=== PATIENT | female | born 1965 | race Caucasian/White ===

== ENCOUNTER 2018-02-13 08:12 | Day surgery (SDC) | payer OTHER ==
[2018-02-10 14:50] VITALS: BMI 32.3
[~2018-02-13 08:12] MED LIST: LACTATED RINGERS 1,000 ML IV SCH; LIDOCAINE 1% 20 ML VIAL (10MG/ML) FOR IV START INTRADERMA PRN
[2018-02-13 08:41] VITALS: RESP 16; TEMP 97.4
[2018-02-13] MEDS ORDERED: LIDOCAINE 1% 20 ML VIAL (10MG/ML) FOR IV START INTRADERMA ONE (08:41)
[2018-02-13] MEDS ORDERED: LIDOCAINE 1% INJ 10MG/ML (20 ML MDV) ONE (09:13)
[2018-02-13] MEDS ORDERED: PROPOFOL 10 MG/ML 20 ML VIAL IV ONE (09:13)
--- NOTE | 2018-02-13 09:36 | P.GSHP ---
History of Present Illness H&P Date: 02/13/18 Chief Complaint: Gerd, Dysphagia, screening colonoscopy This a 52-year-old female referred from Dr. Rafaela Ott. Patient rents today for colonoscopy and EGD. She's had issues with GERD and dysphagia. Patient's a known history of hiatal hernia and Herrera's esophagus. Patient PRESENTS for screening colonoscopy. Past Medical History Past Medical History: Cancer, Deep Vein Thrombosis (DVT), GERD/Reflux, Rheumatoid Arthritis (RA) Additional Past Medical History / Comment(s): hx colon cancer, BLOOD CLOT IN ABDOMEN AFTER BOWEL SURG, NEUROPATHY forrest legs and feet, History of Any Multi-Drug Resistant Organisms: None Reported Past Surgical History: Bowel Resection, Tonsillectomy, Tubal Ligation Additional Past Surgical History / Comment(s): surgery for heavy uterine bleeding(?mesh), Past Anesthesia/Blood Transfusion Reactions: Family History of Problems w/ Anesthesia, Motion Sickness Additional Past Anesthesia/Blood Transfusion Reaction / Comment(s): MOTHER HAS PONV Smoking Status: Never smoker - Past Family History Father Family Medical History: Cancer Medications and Allergies Home Medications Medication Instructions Recorded Confirmed Type Gabapentin [Neurontin] 800 mg PO TID 02/10/18 02/13/18 History Synthroid(Dose Unknown) 1 tab PO DAILY 02/10/18 02/13/18 History Allergies Allergy/AdvReac Type Severity Reaction Status Date / Time Penicillins Allergy Severe Swelling Verified 02/13/18 08:27 OF THROAT Surgical - Exam Vital Signs Temp Pulse Resp BP Pulse Ox 97.4 F L 68 16 108/72 99 02/13/18 08:39 02/13/18 08:39 02/13/18 08:39 02/13/18 08:39 02/13/18 08:39 - General well developed, no distress - Eyes PERRL - ENT normal pinna - Neck no masses - Respiratory normal expansion - Cardiovascular Rhythm: regular - Abdomen Abdomen: soft, non tender Assessment and Plan Assessment: GERD, Herrera's esophagitis, hiatal hernia. Perform screening colonoscopy. And EGD.
[2018-02-13 10:00] VITALS: BP 127/65; PULSE 68
--- NOTE | 2018-02-13 10:13 | P.OP ---
Date of Procedure: 02/13/18 Preoperative Diagnosis: GERD Dysphagia, history of colon cancer Postoperative Diagnosis: Antral gastritis Small hiatal hernia Esophagitis Normal colon status post right colectomy Procedure(s) Performed: EGD Colonoscopy Anesthesia: MAC Surgeon: Ed Pimentel Pathology: other (Antrum, esophagus) Condition: stable Disposition: PACU Description of Procedure: PROCEDURE: The patient was placed on the endoscopy table in the lateral position. Digital rectal examination was performed which revealed no abnormalities. The prostate was symmetrical without nodules. Flexible colonoscope was then placed in the patient's anus and passed throughout the entire colon. The ileocolonic anastomosis was visualized. The transverse, descending and sigmoid colon were normal. The rectum was normal as well. There were no masses, polyps or diverticula noted in the entire colon. Next the gastroscope placed oropharynx and passed into the esophagus and into the stomach. Scope was then placed through the pylorus. The first and second portion of the duodenum. Normal. Scope was then brought back the antrum this was minimal inflamed. A biopsies was performed. Scope was unretroflexed and remainder of the stomach appeared normal. There was a small hiatal hernia. The GE junction was at 38 cm. The distal esophagus appeared of inflamed. A biopsies performed. The proximal esophagus appeared normal. Scope was withdrawn for patient..
== END 2018-02-13 10:25 | disposition home or self-care (01) ==
LOC: ORWHC2ENDO 08:12
PROVIDERS: ATTEND Surgery
DX: Z12.11 Encounter for screening for malignant neoplasm of colon (principal); K29.50 Unspecified chronic gastritis without bleeding; K44.9 Diaphragmatic hernia without obstruction or gangrene; K21.0 Gastro-esophageal reflux disease with esophagitis; Z85.038 Personal history of other malignant neoplasm of large intestine; Z90.49 Acquired absence of other specified parts of digestive tract; M06.9 Rheumatoid arthritis, unspecified; E07.9 Disorder of thyroid, unspecified; G62.9 Polyneuropathy, unspecified; Z86.718 Personal history of other venous thrombosis and embolism; Z79.890 Hormone replacement therapy; Z79.899 Other long term (current) drug therapy; Z88.0 Allergy status to penicillin; Z98.51 Tubal ligation status
CPT/HCPCS: 81025; 88305; 43239; J2001; J2704; G0105; 45378

== ENCOUNTER → 2018-02-25 | Outpatient (CLI) | payer OTHER ==
--- NOTE | 2018-02-25 10:17 | FL ---
EXAMINATION TYPE: FL barium swallow DATE OF EXAM: 02/25/2018 CLINICAL HISTORY: GERD and dysphagia per order. Occasional episodes of food getting stuck in upper to mid esophagus per patient. TECHNIQUE: A double contrast esophagram is performed utilizing air and barium. A total of 32 second s of fluoroscopic time was utilized during procedure. 26 spot images were saved during procedure. COMPARISON: None FINDINGS: The esophagus shows normal motility and emptying into the stomach. No evidence of hiatal h ernia, intraluminal mass, or significant stricture noted. No significant gastroesophageal reflux was seen during real time performance of this study. IMPRESSION: No significant abnormality is seen to account for patient's symptoms.
== END | disposition home or self-care (01) ==
LOC: RADFLMAIN 09:24
PROVIDERS: ATTEND Surgery
DX: R13.10 Dysphagia, unspecified (principal); K21.9 Gastro-esophageal reflux disease without esophagitis
CPT/HCPCS: 74220

== ENCOUNTER → 2018-03-04 | Outpatient (CLI) | payer OTHER ==
--- NOTE | 2018-03-04 12:52 | FL ---
MODIFIED SWALLOW / DEGLUTITION STUDY DATE OF EXAM: 03/04/2018 CLINICAL HISTORY: 52-year-old female with Dysphagia. Sensation of food sticking in the throat. TECHNIQUE: Deglutition study is performed utilizing thin liquid barium, honey and nectar thick liqui d barium, barium thick applesauce, and barium coated cracker. Total images: None. Real-time fluoroscopy support was provided to speech pathology Fluoroscopy time: 1 minute 20 seconds. COMPARISON: None. FINDINGS: The oral and pharyngeal phases show satisfactory initiation and propagation with all modalities teste d. Normal mastication is seen with solid modalities tested. There is no evidence of penetration or aspiration with any modality tested. Mild residuals are noted at the level of the cervical esophagus where a prominent anterior disc osteophyte complexes noted at C6-C7. This impresses on to the outbound sales specialist ior esophageal wall causing mild restriction. The patient points to this level as the site of abnorma l sensation when prompted. There is some soft tissue fullness in the expected region of the lingual t onsils which can be correlated with direct visualization. The patient reports that the palatine tonsi ls more previously removed. IMPRESSION: 1. No evidence for penetration or aspiration. 2. Prominent anterior disc osteophyte complex at C6-C7 impressing on the posterior esophageal wall. T his causes mild restriction and mild residuals. When prompted, the patient points to this level as th e site of abnormal sensation. 3. Soft tissue fullness in the expected region of the lingual tonsils. Recommend direct visualization , possible tonsillar hypertrophy. The patient reports that her palatine tonsils were previously remov ed. 4. Please refer to speech therapist notes for further details if necessary.
== END ==
LOC: RADFLMAIN 11:20
PROVIDERS: ATTEND Surgery
DX: M79.9 Soft tissue disorder, unspecified (principal); R13.10 Dysphagia, unspecified
CPT/HCPCS: 74230

== ENCOUNTER → 2018-04-07 | Outpatient (CLI) | payer OTHER ==
[2018-04-07 12:03] LABS: Basophils % (A) 0 %; Eosinophils # (A) 0.1 k/uL (0-0.7); Eosinophils % (A) 1 %; HCT 38.1 % (34.0-46.0); HGB 12.9 gm/dL (11.4-16.0); Lymphocytes # (A) 1.2 k/uL (1.0-4.8); Lymphocytes % (A) 20 %; MCH 29.5 pg (25.0-35.0); MCHC 33.9 g/dL (31.0-37.0); Mean Platelet Volume 6.3; Monocytes # (A) 0.4 k/uL (0-1.0); Monocytes % (A) 6 %; Neutrophils # (A) 4.2 k/uL (1.3-7.7); Neutrophils % (A) 71 %; Platelet Count 265 k/uL (150-450); RBC 4.38 m/uL (3.80-5.40); RDW 12.5 % (11.5-15.5); WBC 5.8 k/uL (3.8-10.6)
[2018-04-07 12:15] LABS: Anion Gap 12 mmol/L; Blood Urea Nitrogen 9 mg/dL (7-17); Carbon Dioxide 24 mmol/L (22-30); Chloride 104 mmol/L (98-107); Glucose 93 mg/dL (74-99); Potassium 4.1 mmol/L (3.5-5.1); Sodium 140 mmol/L (137-145)
== END ==
LOC: LABPAT 11:09
PROVIDERS: ATTEND Obstetrics & Gynecology
DX: Z01.812 Encounter for preprocedural laboratory examination (principal); N81.4 Uterovaginal prolapse, unspecified
CPT/HCPCS: 36415; 80051; 82565; 82947; 84520; 85025; 87086

== ENCOUNTER → 2018-04-09 | Outpatient (CLI) | payer OTHER | END | disposition home or self-care (01) | LOC: LABWHC1 09:00 | PROVIDERS: ATTEND Obstetrics & Gynecology | DX: Z01.818 Encounter for other preprocedural examination (principal) | CPT/HCPCS: 86850; 86860; 86870; 86880; 86885; 86900; 86901; 86902 ==

== ENCOUNTER 2018-04-15 05:46 | Day surgery (SDC) | payer OTHER ==
[2018-04-04 14:42] VITALS: BMI 32.3
[~2018-04-15 05:46] MED LIST changes: +CLINDAMYCIN 900 MG in DEXTROSE 5% IN WATER 50 ML IVPB ONE; +GENTAMICIN 360 MG in SODIUM CHLORIDE 0.9% 100 ML IVPB ONE; +HYDROmorphone 0.5 MG/0.5 ML SYRINGE IVP PRN; -LACTATED RINGERS 1,000 ML IV SCH; -LIDOCAINE 1% 20 ML VIAL (10MG/ML) FOR IV START INTRADERMA PRN; +ONDANSETRON 4 MG/2 ML VIAL IVP PRN; +fentaNYL (PF) 50 MCG/ML 2 ML AMP IV PRN
[2018-04-15] MEDS ORDERED: LIDOCAINE 1% 20 ML VIAL (10MG/ML) FOR IV START INTRADERMA ONE (06:41)
[2018-04-15] MEDS: LACTATED RINGERS 1,000 ML IV SCH ×2 (06:41→14:28)
[2018-04-15] MEDS ORDERED: ONDANSETRON 4 MG/2 ML VIAL IVP ONE (07:01)
[2018-04-15] MEDS ORDERED: DEXAMETHASONE SOD PHOSPHATE 10 MG/ML 1 ML VIAL IV ONE (07:02)
[2018-04-15] MEDS ORDERED: SCOPOLAMINE 1.5MG/72HR PATCH TRANSDERM ONE (07:02)
[2018-04-15] MEDS ORDERED: MIDAZOLAM 2 MG/2 ML VIAL IVP ONE (07:14)
[2018-04-15] MEDS ORDERED: fentaNYL (PF) 50 MCG/ML 2 ML AMP IVP ONE (07:19)
[2018-04-15] MEDS ORDERED: LIDOCAINE 1% INJ 10MG/ML (20 ML MDV) ONE (07:35)
[2018-04-15] MEDS ORDERED: SUCCINYLCHOLINE CHLORIDE 100 MG/5 ML SYR IV ONE (07:35)
[2018-04-15] MEDS ORDERED: MIDAZOLAM 2 MG/2 ML VIAL ONE (07:35)
[2018-04-15] MEDS ORDERED: fentaNYL (PF) 50 MCG/ML 2 ML AMP ONE (07:35)
[2018-04-15] MEDS ORDERED: PROPOFOL 10 MG/ML 20 ML VIAL IV ONE (07:35)
[2018-04-15] MEDS ORDERED: MORPHINE SULFATE (PF) 0.3 MG/0.3 ML SYR ONE (07:35)
[2018-04-15] MEDS ORDERED: ZOLPIDEM 5 MG TAB PO PRN (07:39)
[2018-04-15] MEDS ORDERED: SIMETHICONE 80 MG CHEWABLE PO PRN (07:39)
[2018-04-15] MEDS ORDERED: METOCLOPRAMIDE 5 MG/ML 2 ML VIAL IVP PRN (07:39)
[2018-04-15] MEDS ORDERED: Acetaminophen-Codeine 300-30mg TAB PO PRN ×2 (07:39)
[2018-04-15] MEDS ORDERED: diphenhydrAMINE 50 MG/ML 1 ML VIAL IVP PRN (07:39)
[2018-04-15] MEDS ORDERED: KETOROLAC 30 MG/ML 1 ML VIAL IVP PRN (07:39)
[2018-04-15] MEDS ORDERED: IBUPROFEN 600 MG TAB PO PRN (07:39)
--- NOTE | 2018-04-15 07:39 | P.HPOB ---
History of Present Illness H&P Date: 04/15/18 Chief Complaint: Symptomatic uterine prolapse The patient is a 52-year-old 3 para 3003 who presented the office with a complaint of increasing pelvic pressure present for close to a year. She recently looked at home and noticed something protruding from vagina. She has had an endometrial ablation in the past as well as a diagnosis of colon cancer which was resected and immediately reanastomosed with subsequent chemotherapy. She still does have some very light and irregular periods following her ablation 7 years ago but has no other significant symptoms of perimenopause aside from her cycle irregularity. She does also report some dyspareunia but has not required any splinting in order to either urinate or move her bowels. Obstetrical history: 3 para 3003 with 3 term vaginal deliveries without complications. Gynecologic history: Unremarkable with no history of any infections to include STDs Review of Systems Review of systems is confined to history of present illness. Past Medical History Past Medical History: Cancer, Deep Vein Thrombosis (DVT), GERD/Reflux, Rheumatoid Arthritis (RA) Additional Past Medical History / Comment(s): hx colon cancer, BLOOD CLOT IN ABDOMEN AFTER BOWEL SURG, NEUROPATHY forrest legs and feet, History of Any Multi-Drug Resistant Organisms: None Reported Past Surgical History: Bowel Resection, Tonsillectomy, Tubal Ligation Additional Past Surgical History / Comment(s): surgery for heavy uterine bleeding(?mesh), Past Anesthesia/Blood Transfusion Reactions: Family History of Problems w/ Anesthesia, Motion Sickness Additional Past Anesthesia/Blood Transfusion Reaction / Comment(s): MOTHER HAS PONV Smoking Status: Never smoker - Past Family History Father Family Medical History: Cancer Medications and Allergies Home Medications Medication Instructions Recorded Confirmed Type Gabapentin [Neurontin] 800 mg PO TID 02/10/18 04/15/18 History Levothyroxine Sodium [Synthroid] 137 mcg PO DAILY 02/10/18 04/15/18 History Ropinirole(Unknown Dose) 0.5 mg PO HS 04/11/18 04/15/18 History Allergies Allergy/AdvReac Type Severity Reaction Status Date / Time Penicillins Allergy Severe Swelling Verified 04/04/18 14:38 OF THROAT Exam - Vital Signs Vital signs: Vital Signs Temp Pulse Resp BP Pulse Ox 04/15/18 06:37 97.1 F L 63 16 113/61 99 Intake and Output 04/14/18 04/15/18 04/15/18 22:59 06:59 14:59 Intake Total 500 Balance 500 Intake: IV 500 In general, this is a well-developed, well-nourished white female in no acute distress. HEENT demonstrates PERRLA, EOMI, her oropharynx is clear. Her neck is supple without adenopathy in the third is normal palpation. Her heart has a regular rhythm and rate without murmur. Her lungs are clear to auscultation bilaterally in all grover. Back is without spinal or CVA tenderness. Her extremities are without any cyanosis, clubbing, or edema and are nontender to palpation bilaterally. Her abdomen is nondistended, has normal active bowel sounds, soft, nontender, and without any palpable masses, hepatomegaly, or hernias. Pelvic examination demonstrates normal external genitalia and BUS with normal vaginal mucosa and cervix. The cervix is apparent at the introitus representing grade 3-3+ prolapse. Uterus is approximate 5 weeks in size, midplane, mobile, nontender, normal in shape. The adnexa are normal and nontender without mass bilaterally. Assessment and Plan (1) Uterine prolapse Current Visit: Yes Status: Acute Code(s): N81.4 - UTEROVAGINAL PROLAPSE, UNSPECIFIED SNOMED Code(s): 49712515 Plan: The patient is brought to the operating room for vaginal hysterectomy. We have additionally consented her for possible anterior and possible posterior repair should these be found under anesthesia though they were not in evidence in the office. The risks and complications of the procedures have been thoroughly discussed including the risk for bleeding, bleeding, transfusion, infection, and injury to local structures to specifically include the bowel, bladder, and ureters. I did pay some particular concern to the risks of the bowel given her history of previous colonic resection and potential adhesive disease. She has understood all of these concerns and has agreed to proceed. The typical hospital and postoperative courses were also discussed at length.
[2018-04-15] MEDS ORDERED: LACTATED RINGERS 1,000 ML IV SCH (07:45)
[2018-04-15] MEDS ORDERED: VASOPRESSIN 20 UNIT/ML 1 ML VIAL SQ ONE (07:55)
[2018-04-15] MEDS ORDERED: ONDANSETRON 4 MG/2 ML VIAL IVP PRN (07:56)
[2018-04-15] MEDS ORDERED: NALOXONE 0.4 MG/ML 1 ML VIAL IV PRN (07:56)
[2018-04-15] MEDS ORDERED: MORPHINE SULFATE 2 MG/ML SYRINGE IVP PRN (07:56)
[2018-04-15] MEDS ORDERED: BACITRACIN 500 UNIT/GM OINT 28.4 GM TUBE TOPICAL ONE (08:09)
[2018-04-15] MEDS ORDERED: LACTATED RINGERS 1,000 ML IV ONE ×2 (08:29)
--- NOTE | 2018-04-15 08:54 | P.OP ---
Date of Procedure: 04/15/18 Preoperative Diagnosis: #1. Symptomatic uterine prolapse Postoperative Diagnosis: same Procedure(s) Performed: #1. Vaginal hysterectomy Anesthesia: CHERRY Surgeon: Alan Langley Bathroom Tiling Professional #1: Fabiana Sanchez Estimated Blood Loss (ml): 200 IV fluids (ml): 700 Urine output (ml): 200 Pathology: other (Uterus) Condition: stable Disposition: PACU Operative Findings: Preoperative pelvic examination demonstrated the cervix to be at the introitus as previously noted. Intraoperatively, the uterus was quite high and there was an unrecognized fundal fibroid on the patient's right side. The ovaries were neither seen or felt as they were suspended very high in the pelvis. Description of Procedure: The patient was prepped and draped in usual fashion after general endotracheal anesthesia was administered by the anesthesiologist. A weighted speculum was placed and the bladder drained of approximately 200 mL of clear nadine urine. The cervix was grasped with a double-tooth tenaculum and the cervicovaginal mucosa infused circumferentially with diluted vasopressin solution. The mucosa was then incised circumferentially and reflected distally. The posterior peritoneum was identified and incised sharply with the Sosa scissors allowing placement of a 2-0 Vicryl stitch for later use. The short weighted speculum was replaced with the long weighted speculum and further reflection of the mucosa carried out circumferentially. Once uterosacrals were adequately exposed , each was clamped with a curved Jolie [place] clamp, cut, and suture- ligated with a transfixion stitch of 0 Vicryl. Serial bites were taken up the cardinal ligament bilaterally with curved [place] clamps, each being cut and suture-ligated with a transfixion stitch of 0 Vicryl. After approximately 3-4 bites on each side, the posterior fundus was grasped with a single-tooth tenaculum and walked out in an anteverted position. This allowed us to identify the anterior peritoneum and incised sharply with the Bovie. This isolated the utero-ovarian ligaments on each side. The right utero- ovarian ligament was tethered quite high but was ultimately taken in 2 pieces. Each utero-ovarian pedicle was suture-ligated with a transfixion stitch of 0 Vicryl followed by a free tie of 0 Vicryl. Careful examination of each pedicle was carried out and demonstrated excellent hemostasis prior to releasing it into the abdomen. The ovaries were suspended very high and neither seen nor felt even with a digital exam. The long weighted speculum was replaced with the short weighted speculum and the previously placed stitch of 2-0 Vicryl utilized to close the parietal peritoneum in a pursestring stitch. The only points of any significant bleeding were along the vaginal cuff and would be incorporated in closure of the vaginal cuff. The uterosacral ligaments on each side were passed through the contralateral side with 0 Vicryl and then through the vaginal cuff on each side in a modified Garcia's culdoplasty. The intervening open vaginal mucosa was closed with interrupted [id number] stitches. Any exposed portion of the mucosal edge was cauterized with the Bovie in order to decrease granulation tissue. The bladder was then catheterized for a small amount of clear nadine urine. The vagina was packed with one-inch iodophor gauze covered with bacitracin ointment. Estimated blood loss for the entire case was approximately 200 mL. There were no complications. All sponge, instrument, and needle counts were correct. The patient tolerated the procedure well and proceeded to the recovery room in stable condition.
[2018-04-15] MEDS: SENNOSIDES-DOCUSATE SODIUM 1 EACH TAB PO SCH (10:36)
[2018-04-15] MEDS: diphenhydrAMINE 50 MG/ML 1 ML VIAL IVP PRN ×2 (13:06→19:28)
[2018-04-15] MEDS: GABAPENTIN 400 MG CAP PO SCH (19:27)
[2018-04-15] MEDS ORDERED: LEVOTHYROXINE 137 MCG TAB PO SCH (20:00)
[2018-04-16] MEDS: LACTATED RINGERS 1,000 ML IV SCH (00:17)
[2018-04-16] MEDS: diphenhydrAMINE 50 MG/ML 1 ML VIAL IVP PRN (01:26)
[2018-04-16] MEDS ORDERED: NALBUPHINE 10 MG/ML AMPUL IV PRN (06:18)
--- NOTE | 2018-04-16 06:18 | P.PN ---
Progress Note - Text Progress Note Date: 04/16/18 52-year-old female postop day #1, status post vaginal hysterectomy with Duramorph spinal. Patient is doing well, VAS 2/10, patient is ambulating, tolerating diet, has no complaints of nausea or vomiting. Patient does have significant pruritus that is not being treated by Benadryl. We'll add in order for Nubain 2.5 mg IV. Patient is doing well otherwise
[2018-04-16 06:26] LABS: Basophils % (A) 0 %; Eosinophils % (A) 0 %; HGB 10.4 gm/dL (11.4-16.0); Lymphocytes # (A) 1.1 k/uL (1.0-4.8); Lymphocytes % (A) 10 %; MCH 29.8 pg (25.0-35.0); MCHC 33.5 g/dL (31.0-37.0); MCV 88.8 fL (80.0-100.0); Mean Platelet Volume 6.2; Monocytes # (A) 0.7 k/uL (0-1.0); Monocytes % (A) 7 %; Neutrophils # (A) 8.4 k/uL (1.3-7.7); Neutrophils % (A) 82 %; Platelet Count 200 k/uL (150-450); RBC 3.49 m/uL (3.80-5.40); RDW 12.7 % (11.5-15.5); WBC 10.3 k/uL (3.8-10.6)
[2018-04-16] MEDS: SENNOSIDES-DOCUSATE SODIUM 1 EACH TAB PO SCH ×2 (06:30→12:57)
--- NOTE | 2018-04-16 08:45 | P.DS ---
Providers Expected date of discharge: 04/16/18 Attending physician: Alan Langley Primary care physician: Rafaela Ott - Discharge Diagnosis(es) (1) Uterine prolapse Current Visit: Yes Status: Acute Hospital Course: The patient is a 52-year-old 3 para 3003% the office with complaints of increasing pelvic pressure having noted the cervix at the opening in the vagina. Examination confirmed this finding. She also reported some dyspareunia and was requesting definitive therapy. Her history was somewhat complicated by a history of colon cancer with resection and immediately anastomosis done in the past. She was taken the operating room where she underwent vaginal hysterectomy in an uncomplicated fashion. Her post operative course was entirely unremarkable with vital signs remained stable and her temperature was afebrile throughout. She was tolerating regular diet by the morning of postoperative day #1 and performing all activities of daily living. She is therefore deemed stable for discharge for the afternoon of postoperative day #1 to follow-up in the office in 2 weeks' time for recheck in 6 weeks' time routinely. Discharge instructions included calling for any significantly increased bleeding, fever, abdominal pain, GI complaints, urinary complaints, or anything else that concerned her. She is additionally instructed to have nothing in the vagina to include intercourse for at least 6 weeks time. She understood her instructions and agrees to follow up as noted above. Discharge medications included her normal home medications as well as a prescription for Tylenol 3, 1-2 by mouth every 6 hours when necessary pain, #20 dispensed with no refills. Discharge hemoglobin and hematocrit were 10.4 and 31.0 respectively. Procedures: #1. Vaginal hysterectomy Patient Condition at Discharge: Good Plan - Discharge Summary Discharge Rx Participant: Yes New Discharge Prescriptions: No Action Levothyroxine Sodium [Synthroid] 137 mcg PO DAILY Gabapentin [Neurontin] 800 mg PO TID Ropinirole(Unknown Dose) 0.5 mg PO HS Discharge Medication List Gabapentin [Neurontin] 800 mg PO TID 02/10/18 [History] Levothyroxine Sodium [Synthroid] 137 mcg PO DAILY 02/10/18 [History] Ropinirole(Unknown Dose) 0.5 mg PO HS 04/11/18 [History] Follow up Appointment(s)/Referral(s): Alan Langley MD [STAFF PHYSICIAN] - 2 Weeks Discharge Disposition: HOME SELF-CARE
[2018-04-16 09:06] VITALS: BP 120/62; PULSE 79; RESP 18; TEMP 98.2
[2018-04-16] MEDS: GABAPENTIN 400 MG CAP PO SCH (12:56)
== END 2018-04-16 13:29 | disposition home or self-care (01) ==
LOC: OR 05:46 → 4FBP 08:48 → OR 04-16 13:29
PROVIDERS: ATTEND Obstetrics & Gynecology
DX: D25.9 Leiomyoma of uterus, unspecified (principal); N81.4 Uterovaginal prolapse, unspecified; N72 Inflammatory disease of cervix uteri; N80.0 Endometriosis of uterus; K21.9 Gastro-esophageal reflux disease without esophagitis; M06.9 Rheumatoid arthritis, unspecified; Z85.038 Personal history of other malignant neoplasm of large intestine; Z98.51 Tubal ligation status; Z88.0 Allergy status to penicillin; Z90.49 Acquired absence of other specified parts of digestive tract; Z79.899 Other long term (current) drug therapy; Z86.718 Personal history of other venous thrombosis and embolism
CPT/HCPCS: 81025; 85025; 88307; 58260; J2250; J1200 ×2; J1100; J2300; J2405; J2001; J2274; J3010; J1885; J1580; J2270; J0330; J2704; 36415; 86850; 86870; 86880; 86900; 86901; 86902; 88305

== ENCOUNTER → 2018-05-01 | Outpatient (CLI) | payer OTHER ==
[2018-05-01 17:25] LABS: HCT 36.7 % (34.0-46.0); HGB 12.1 gm/dL (11.4-16.0); MCH 28.6 pg (25.0-35.0); MCHC 33.1 g/dL (31.0-37.0); MCV 86.6 fL (80.0-100.0); Mean Platelet Volume 6.2; Platelet Count 384 k/uL (150-450); RBC 4.24 m/uL (3.80-5.40); RDW 11.7 % (11.5-15.5); WBC 13.1 k/uL (3.8-10.6)
== END | disposition home or self-care (01) ==
LOC: LABWHC1 16:05
PROVIDERS: ATTEND Obstetrics & Gynecology
DX: M10.9 Gout, unspecified (principal); R50.9 Fever, unspecified
CPT/HCPCS: 36415; 85027; 87086

== ENCOUNTER 2018-05-02 13:13 | Inpatient (IN) | payer OTHER ==
[2018-05-02] MEDS ORDERED: ACETAMINOPHEN TAB 500 MG TAB PO STA (15:00)
[2018-05-02] MEDS ORDERED: LEVOFLOXACIN 750MG-D5W PMX 750 MG in DEXTROSE/WATER 1 150ML.BAG IVPB STA (15:00)
[2018-05-02] MEDS ORDERED: IBUPROFEN 600 MG TAB PO STA (15:00)
[2018-05-02] MEDS ORDERED: ONDANSETRON 4 MG/2 ML VIAL IVP STA (15:06)
[2018-05-02] MEDS ORDERED: MORPHINE SULFATE 2 MG/ML SYRINGE IVP STA (15:06)
[2018-05-02 15:50] LABS: Appearance,Urine Cloudy (Clear); Basophils % (A) 0 %; Bilirubin,Urine Negative (Negative); Blood,Urine Negative (Negative); Color,Urine Light Brown; Eosinophils # (A) 0.1 k/uL (0-0.7); Eosinophils % (A) 1 %; Glucose,Urine (UA) Negative (Negative); HCT 35.6 % (34.0-46.0); HGB 11.7 gm/dL (11.4-16.0); Ketones,Urine 1+ (Negative); Leukocyte Esterase,Urine Negative (Negative); Lymphocytes % (A) 9 %; MCH 28.1 pg (25.0-35.0); MCHC 32.8 g/dL (31.0-37.0); MCV 85.4 fL (80.0-100.0); Mean Platelet Volume 6.1; Monocytes # (A) 0.7 k/uL (0-1.0); Monocytes % (A) 6 %; Mucus,Urine Many /hpf; Neutrophils # (A) 9.5 k/uL (1.3-7.7); Neutrophils % (A) 83 %; Nitrite,Urine Negative (Negative); PH, Urine 5.5 (5.0-8.0); Platelet Count 361 k/uL (150-450); Protein,Urine 1+ (Negative); RBC 4.16 m/uL (3.80-5.40); RBC,Urine 1 /hpf (0-5); RDW 11.7 % (11.5-15.5); Specific Gravity,Urine 1.021 (1.001-1.035); Squamous Epithelial Cell,Urine 3 /hpf (0-4); Urobilinogen,Urine <2.0 mg/dL (<2.0); WBC 11.6 k/uL (3.8-10.6); WBC,Urine 3 /hpf (0-5)
[2018-05-02 15:56] LABS: ALT 41 U/L (9-52); AST 42 U/L (14-36); Albumin 3.9 g/dL (3.5-5.0); Alkaline Phosphatase 121 U/L (38-126); Anion Gap 11 mmol/L; Blood Urea Nitrogen 10 mg/dL (7-17); Calcium 9.3 mg/dL (8.4-10.2); Carbon Dioxide 27 mmol/L (22-30); Chloride 99 mmol/L (98-107); Glucose 101 mg/dL (74-99); Potassium 3.8 mmol/L (3.5-5.1); Sodium 137 mmol/L (137-145); Total Bilirubin 1.3 mg/dL (0.2-1.3); Total Protein 6.7 g/dL (6.3-8.2)
[2018-05-02 15:57] LABS: Partial Thromboplastin Time 25.8 sec (22.0-30.0); Prothrombin Time 10.1 sec (9.0-12.0)
[2018-05-02] MEDS: SODIUM CHLORIDE 0.9% 1,000 ML IV SCH (16:15)
[2018-05-02] MEDS: SODIUM CHLORIDE 0.9% 500 ML IV SCH ×2 (16:19→18:22)
--- NOTE | 2018-05-02 16:23 | CT ---
EXAMINATION TYPE: CT abdomen pelvis w con DATE OF EXAM: 05/02/2018 COMPARISON: 03/04/2013 HISTORY: 52-year-old female complains of pelvic pain post hysterectomy. TECHNIQUE: Contiguous axial scanning of the abdomen and pelvis following administration of 100 ml Iso chato 300 IV contrast. Delayed images through the kidneys and coronal/sagittal reconstructions perform ed. CT DLP: 1601 mGycm Automated exposure control for dose reduction was used. FINDINGS: Heart normal size without pericardial effusion. Small hiatal hernia. Lung bases clear without pleural effusion. No focal liver lesion or biliary ductal dilatation. Portal venous system is patent. Gallbladder, adrenal glands, left kidney, and pancreas appear within normal limits. Tiny subcentimete r hypodensity right kidney too small for accurate CT characterization, probable cyst. Spleen mildly enlarged at 14.1 cm, increased from 03/04/2013. Some prominent retroperitoneal lymph nodes measuring up to 8 mm a nonspecific. Scattered nonenlarged mesenteric lymph nodes. Right common iliac chain lymph node or to the iliac artery bifurcation measur es 8 mm. Post surgical changes of right hemicolectomy and right upper quadrant ileocolonic anastomosis. Some l iquid stool is present within the colon. Mild wall thickening of the distal sigmoid and rectum. The distal sigmoid is in direct apposition to the right lateral uterine resection margin, axial image 72 and coronal image 34. There is a second area very close apposition between the distal sigmoid and vaginal cuff just beyond, refer to sagittal image 35 and coronal image 46. Contiguous fluid collecti on at the vaginal cuff region measuring 1.1 x 2.4 cm, sagittal image 35 and axial image 79. Moderate thickening along the posterior wall of the bladder measuring up to 9 mm probably inflammator y wall thickening, sagittal image 36 and axial image 82. Right ovary measures 4.3 cm and left ovary measures 3.3 cm. It appears irregular and inflamed and pro minent enhancement. Small cystic spaces within measuring up to 1.8 cm on the right and 1.1 cm on the left could represent follicular change or small abscesses. No free fluid or free air. Multiple pelvic phleboliths and inflammatory fat stranding within the pelv is. Stable sclerotic focus compatible with bone island within the left L5 vertebral body. Mild degenerati ve disc disease throughout. No osseous destructive process. IMPRESSION: 1. STATUS POST HYSTERECTOMY. THERE IS EXTENSIVE INFLAMMATION IN THE PELVIS WITH 2 AREAS ALONG THE DIS FABRICIO SIGMOID SUSPICIOUS FOR FISTULAS BETWEEN THE SIGMOID COLON AND VAGINAL CUFF WITH A 2.4 CM FOCAL FL UID COLLECTION AT THE UTERINE RESECTION MARGIN, LIKELY A SMALL ABSCESS. 2. IRREGULARITY AND INFLAMMATION ALSO EXTENDS TO INVOLVE BOTH OVARIES, PROBABLY DUE TO CONTIGUOUS INF LAMMATION/INFECTION. SMALL CYSTIC SPACES WITHIN THE OVARIES MEASURE UP TO 1.8 CM ON THE RIGHT AND 1.1 CM ON THE LEFT AND COULD REPRESENT FOLLICULAR CHANGE OR SMALL ABSCESSES. 3. A FEW NEW BORDERLINE SIZED RETROPERITONEAL LYMPH NODES MEASURING UP TO 8 MM LIKELY REACTIVE. 4. MODERATE WALL THICKENING (9 MM) ALONG THE POSTERIOR HALF OF THE BLADDER LIKELY REACTIVE INFLAMMATI ON.
[2018-05-02] MEDS ORDERED: metroNIDAZOLE-NS PMX 500 MG in SALINE 1 100ML.BAG IVPB STA (16:29)
--- NOTE | 2018-05-02 16:40 | ED ---
Abdominal Pain HPI - General Chief Complaint: Abdominal Pain Stated Complaint: Female sent by [email or web address] Time Seen by Provider: 05/02/18 14:36 Source: patient, RN notes reviewed, old records reviewed Mode of arrival: ambulatory Limitations: no limitations - History of Present Illness Initial Comments: 52-year-old female presents emergency department if fevers and chills. She's been having these pains in the lower quadrant since her surgery, hysterectomy 2 weeks ago. Patient reports that she thought that she was having a urinary tract infection and she was started on antibiotics, Macrobid on Saturday. She' s been taking the antibiotics without any improvement of her dysuria or abdominal pain. Patient presented her surgeon is Dr. Veliz. Denies any vaginal bleeding or abnormal discharge. Patient has a history of colon cancer. - Related Data Home Medications Medication Instructions Recorded Confirmed Gabapentin [Neurontin] 800 mg PO TID 02/10/18 05/02/18 Levothyroxine Sodium [Synthroid] 137 mcg PO DAILY 02/10/18 05/02/18 Nitrofurantoin Monohyd/M-Cryst 100 mg PO BID 05/02/18 05/02/18 [Macrobid] rOPINIRole HCL 0.5 mg PO HS 05/02/18 05/02/18 Allergies Allergy/AdvReac Type Severity Reaction Status Date / Time Penicillins Allergy Severe Swelling Verified 05/02/18 14:56 OF THROAT Review of Systems ROS Statement: Those systems with pertinent positive or pertinent negative responses have been documented in the HPI. ROS Other: All systems not noted in ROS Statement are negative. Past Medical History Past Medical History: Cancer, Deep Vein Thrombosis (DVT), GERD/Reflux, Rheumatoid Arthritis (RA) Additional Past Medical History / Comment(s): hx colon cancer, BLOOD CLOT IN ABDOMEN AFTER BOWEL SURG, NEUROPATHY forrest legs and feet, History of Any Multi-Drug Resistant Organisms: None Reported Past Surgical History: Bladder Surgery, Bowel Resection, Hysterectomy, Tonsillectomy, Tubal Ligation Additional Past Surgical History / Comment(s): surgery for heavy uterine bleeding(?mesh), Past Anesthesia/Blood Transfusion Reactions: Family History of Problems w/ Anesthesia, Motion Sickness Additional Past Anesthesia/Blood Transfusion Reaction / Comment(s): MOTHER HAS PONV Past Psychological History: Depression Smoking Status: Never smoker Past Alcohol Use History: Occasional Past Drug Use History: None Reported - Past Family History Father Family Medical History: Cancer General Exam - General Exam Comments Initial Comments: 52-year-old female. Alert and oriented. No significant distress. Limitations: no limitations General appearance: alert, in no apparent distress Head exam: Present: atraumatic, normocephalic, normal inspection Eye exam: Present: normal appearance, PERRL, EOMI. Absent: scleral icterus, conjunctival injection, periorbital swelling ENT exam: Present: normal exam, mucous membranes moist Neck exam: Present: normal inspection. Absent: tenderness, meningismus, lymphadenopathy Respiratory exam: Present: normal lung sounds bilaterally. Absent: respiratory distress, wheezes, rales, rhonchi, stridor Cardiovascular Exam: Present: regular rate, normal rhythm, normal heart sounds. Absent: systolic murmur, diastolic murmur, rubs, gallop, clicks GI/Abdominal exam: Present: soft, tenderness (severe pelvic tenderness), normal bowel sounds. Absent: distended, guarding, rebound, rigid Extremities exam: Present: normal inspection, full ROM, normal capillary refill. Absent: tenderness, pedal edema, joint swelling, calf tenderness Back exam: Present: normal inspection Neurological exam: Present: alert, oriented X3, CN II-XII intact Psychiatric exam: Present: normal affect, normal mood Skin exam: Present: warm, dry, intact, normal color. Absent: rash Course Vital Signs 05/02/18 13:29 Temperature 99.0 F Pulse Rate 110 H Respiratory 18 Rate Blood Pressure 106/67 O2 Sat by Pulse 100 Oximetry Medical Decision Making - Medical Decision Making 52-year-old female presents with fevers the past 2 weeks of severe lower abdominal pain. Had a hysterectomy 2 weeks ago. No vaginal bleeding or abnormal discharge. She was significantly tender on exam. Febrile at 100.5 and tachycardic. Patient's labwork was reviewed and is unremarkable. Urinalysis is positive for dehydration. Urine was very broad. Given 2 L bolus. He was started on Levaquin and Flagyl. CT abdomen and pelvis was performed due to significant tenderness. Evidence of inflammation in the pelvis with possibility fistula between the sigmoid colon and vaginal cuff with a 2.4 cm fluid collection at the uterine resection margin. We discussed this with Dr. Veliz, wants the Patient admitted to medicine with consult to him. He will does the Patient for further evaluation. - Lab Data Result diagrams: 05/02/18 15:30 05/02/18 15:30 Lab Results 05/02/18 05/02/18 05/02/18 Range/Units 15:30 15:30 15:30 WBC 11.6 H (3.8-10.6) k/uL RBC 4.16 (3.80-5.40) m/uL Hgb 11.7 (11.4-16.0) gm/dL Hct 35.6 (34.0-46.0) % MCV 85.4 (80.0-100.0) fL MCH 28.1 (25.0-35.0) pg MCHC 32.8 (31.0-37.0) g/dL RDW 11.7 (11.5-15.5) % Plt Count 361 (150-450) k/uL Neutrophils % 83 % Lymphocytes % 9 % Monocytes % 6 % Eosinophils % 1 % Basophils % 0 % Neutrophils # 9.5 H (1.3-7.7) k/uL Lymphocytes # 1.0 (1.0-4.8) k/uL Monocytes # 0.7 (0-1.0) k/uL Eosinophils # 0.1 (0-0.7) k/uL Basophils # 0.0 (0-0.2) k/uL PT (9.0-12.0) sec INR (<1.2) APTT (22.0-30.0) sec Sodium 137 (137-145) mmol/L Potassium 3.8 (3.5-5.1) mmol/L Chloride 99 (98-107) mmol/L Carbon Dioxide 27 (22-30) mmol/L Anion Gap 11 mmol/L BUN 10 (7-17) mg/dL Creatinine 0.73 (0.52-1.04) mg/dL Est GFR (CKD-EPI)AfAm >90 (>60 ml/min/1.73 sqM) Est GFR (CKD-EPI)NonAf >90 (>60 ml/min/1.73 sqM) Glucose 101 H (74-99) mg/dL Plasma Lactic Acid Andrew 0.7 (0.7-2.0) mmol/L Calcium 9.3 (8.4-10.2) mg/dL Total Bilirubin 1.3 (0.2-1.3) mg/dL AST 42 H (14-36) U/L ALT 41 (9-52) U/L Alkaline Phosphatase 121 (38-126) U/L Total Protein 6.7 (6.3-8.2) g/dL Albumin 3.9 (3.5-5.0) g/dL Urine Color Urine Appearance (Clear) Urine pH (5.0-8.0) Ur Specific [place] (1.001-1.035) Urine Protein (Negative) Urine Glucose (UA) (Negative) Urine Ketones (Negative) Urine Blood (Negative) Urine Nitrite (Negative) Urine Bilirubin (Negative) Urine Urobilinogen (<2.0) mg/dL Ur Leukocyte Esterase (Negative) Urine RBC (0-5) /hpf Urine WBC (0-5) /hpf Ur Squamous Epith Cells (0-4) /hpf Urine Mucus (None) /hpf 05/02/18 05/02/18 Range/Units 15:30 15:30 WBC (3.8-10.6) k/uL RBC (3.80-5.40) m/uL Hgb (11.4-16.0) gm/dL Hct (34.0-46.0) % MCV (80.0-100.0) fL MCH (25.0-35.0) pg MCHC (31.0-37.0) g/dL RDW (11.5-15.5) % Plt Count (150-450) k/uL Neutrophils % % Lymphocytes % % Monocytes % % Eosinophils % % Basophils % % Neutrophils # (1.3-7.7) k/uL Lymphocytes # (1.0-4.8) k/uL Monocytes # (0-1.0) k/uL Eosinophils # (0-0.7) k/uL Basophils # (0-0.2) k/uL PT 10.1 (9.0-12.0) sec INR 1.0 (<1.2) APTT 25.8 (22.0-30.0) sec Sodium (137-145) mmol/L Potassium (3.5-5.1) mmol/L Chloride (98-107) mmol/L Carbon Dioxide (22-30) mmol/L Anion Gap mmol/L BUN (7-17) mg/dL Creatinine (0.52-1.04) mg/dL Est GFR (CKD-EPI)AfAm (>60 ml/min/1.73 sqM) Est GFR (CKD-EPI)NonAf (>60 ml/min/1.73 sqM) Glucose (74-99) mg/dL Plasma Lactic Acid Andrew (0.7-2.0) mmol/L Calcium (8.4-10.2) mg/dL Total Bilirubin (0.2-1.3) mg/dL AST (14-36) U/L ALT (9-52) U/L Alkaline Phosphatase (38-126) U/L Total Protein (6.3-8.2) g/dL Albumin (3.5-5.0) g/dL Urine Color Light Brown Urine Appearance Cloudy H (Clear) Urine pH 5.5 (5.0-8.0) Ur Specific [place] 1.021 (1.001-1.035) Urine Protein 1+ H (Negative) Urine Glucose (UA) Negative (Negative) Urine Ketones 1+ H (Negative) Urine Blood Negative (Negative) Urine Nitrite Negative (Negative) Urine Bilirubin Negative (Negative) Urine Urobilinogen <2.0 (<2.0) mg/dL Ur Leukocyte Esterase Negative (Negative) Urine RBC 1 (0-5) /hpf Urine WBC 3 (0-5) /hpf Ur Squamous Epith Cells 3 (0-4) /hpf Urine Mucus Many H (None) /hpf - Radiology Data Radiology results: report reviewed Status post hysterectomy extensive inflammation of the pelvis with 2 areas along the sigmoid colon stenosis suspicious for fistula between the sigmoid and the vaginal cuff and a 2.47 better focal fluid collection at the uterine resection margin. Likely a small abscess. Irregularity and inflammation also extensive of both ovaries, probably due to contiguous inflammation and infection. Small cystic spaces measuring 1.8 cm on the right 1.1 on the left. Few borderline size and pressure. Her lymph nodes measuring up to 8 mm likely reactive. Moderate wall thickening along the posterior half the bladder likely reactive inflammation. Disposition Clinical Impression: Post-op pain, Ileus Disposition: ADMITTED IP TO THIS HOSP Condition: Stable Is patient prescribed a controlled substance at d/c from ED?: No When asked, does pt state using other controlled substances?: No If prescribed controlled substance>3 days was MAPS reviewed?: No If opioid is for acute pain is fill amount 7 days or less?: No If Rx opioid, was Start Talking consent form obtained?: No Referrals: Rafaela Ott DO [Primary Care Provider] - 1-2 days Time of Disposition: 17:09
[2018-05-02] MEDS ORDERED: NALOXONE 0.4 MG/ML 1 ML VIAL IV PRN (17:09)
[2018-05-02] MEDS ORDERED: MORPHINE SULFATE 2 MG/ML SYRINGE IV PRN (17:09)
[2018-05-02] MEDS: GABAPENTIN 400 MG CAP PO SCH (22:24)
[2018-05-02] MEDS: METOCLOPRAMIDE 5 MG/ML 2 ML VIAL IVP SCH (22:24)
[2018-05-03] MEDS: SODIUM CHLORIDE 0.9% 1,000 ML IV SCH ×3 (02:34→21:06)
[2018-05-03] MEDS: IBUPROFEN 400 MG TAB PO PRN ×2 (02:34→15:09)
[2018-05-03] MEDS: ACETAMINOPHEN TAB 325 MG TAB PO PRN ×3 (02:34→23:23)
[2018-05-03] MEDS: METOCLOPRAMIDE 5 MG/ML 2 ML VIAL IVP SCH ×3 (06:08→21:05)
[2018-05-03] MEDS: LEVOTHYROXINE 137 MCG TAB PO SCH (06:12)
[2018-05-03] MEDS: GABAPENTIN 400 MG CAP PO SCH ×3 (08:54→21:06)
[2018-05-03] MEDS: PANTOPRAZOLE 40 MG/10 ML VIAL IV SCH (08:55)
--- NOTE | 2018-05-03 10:59 | P.OBCN ---
History of Present Illness Consult date: 05/03/18 Requesting physician: Tania Mcclellan Reason for consult: pelvic pain, other (Status post vaginal hysterectomy, ileus) Chief complaint: Low abdominal pain with nausea and vomiting History of present illness: The patient is a 52-year-old woman who underwent vaginal hysterectomy approximately 2-1/2 weeks ago which was uncomplicated in nature and had an uncomplicated immediate postoperative recovery. Since that time, she has been significantly active and, over the last week, had increasingly significant lower abdominal pain with occasional low-grade fevers that were not measured initially. She did check her temperature several times approximately 24-48 hours ago with the highest temperature reading being approximately 102F. She carries a history of a previous colon cancer with subsequent the radiation therapy. Over the last several days, she has had increasing nausea and vomiting along with the low-grade fevers and less regular bowel function. She continued to attempt to eat but was unable to take large amounts and was not tolerating liquids well. She presented to the emergency room for evaluation at which time a computed tomography scan demonstrated some findings showing fluid and inflammation in the pelvis consistent with recent pelvic surgery. White blood cell count has remained at the upper limits of normal but not consistent with ongoing infection. Hemoglobin and hematocrit are normal with no evidence for intra-abdominal bleed or vaginal cuff hematoma. This morning, she does report having had 2 loose greenish stools. She does feel hungry but still reports some nausea without vomiting. Obstetrical history: Noncontributory. Gynecologic history: Unremarkable with no history of any infections or other gynecologic concerns. Review of Systems Review of systems is confined to history of present illness. Past Medical History Past Medical History: Cancer, Deep Vein Thrombosis (DVT), GERD/Reflux, Rheumatoid Arthritis (RA), Thyroid Disorder Additional Past Medical History / Comment(s): hx colon cancer,and chemo completed, BLOOD CLOT IN ABDOMEN AFTER BOWEL SURG, NEUROPATHY forrest legs and feet , prolapsed uterus(sx) History of Any Multi-Drug Resistant Organisms: None Reported Past Surgical History: Bladder Surgery, Bowel Resection, Hysterectomy, Tonsillectomy, Tubal Ligation Additional Past Surgical History / Comment(s): surgery for heavy uterine bleeding(?mesh), Past Anesthesia/Blood Transfusion Reactions: Family History of Problems w/ Anesthesia, Motion Sickness Additional Past Anesthesia/Blood Transfusion Reaction / Comm: MOTHER HAS PONV Smoking Status: Never smoker - Past Family History Father Family Medical History: Cancer Medications and Allergies Home Medications Medication Instructions Recorded Confirmed Type Gabapentin [Neurontin] 800 mg PO TID 02/10/18 05/02/18 History Levothyroxine Sodium [Synthroid] 137 mcg PO DAILY 02/10/18 05/02/18 History Nitrofurantoin Monohyd/M-Cryst 100 mg PO BID 05/02/18 05/02/18 History [Macrobid] rOPINIRole HCL 0.5 mg PO HS 05/02/18 05/02/18 History Allergies Allergy/AdvReac Type Severity Reaction Status Date / Time Penicillins Allergy Severe Swelling Verified 05/02/18 14:56 OF THROAT Exam Vital Signs Temp Pulse Pulse Resp BP BP Pulse Ox 05/03/18 08:58 97.1 F L 05/03/18 05:00 98.3 F 79 16 103/50 97 05/03/18 04:15 100.4 F H 05/03/18 02:38 99.9 F H 115 H 22 115/57 05/02/18 23:03 97.3 F L 76 16 100/53 96 05/02/18 19:11 98.2 F 74 18 97/53 97 05/02/18 17:00 86 97/52 98 05/02/18 16:00 80 112/64 96 05/02/18 14:30 95 18 125/74 96 05/02/18 13:29 99.0 F 110 H 18 106/67 100 Intake and Output 05/02/18 05/03/18 05/03/18 22:59 06:59 14:59 Intake Total 900 Balance 900 Intake: IV 900 Sodium Chloride 0.9% 1, 900 000 ml @ 100 mls/hr IV . Q10H [facility], [facility]–1983 Rx#:[id number] Other: Voiding Method Toilet Toilet # Voids 1 In general, this is a well-developed, well-nourished white female in no acute distress. Her heart has a regular rhythm and rate without murmur. Her lungs are clear to auscultation bilaterally in all grover. Her abdomen is nondistended, is soft, with mild to moderate central suprapubic tenderness which is less than examination 2 days ago. There is no guarding or any rebound nor any palpable masses. Her extremities are without any cyanosis, clubbing, or significant edema and are nontender to palpation bilaterally. Pelvic examination is deferred. Results Result Diagrams: 05/02/18 15:30 05/02/18 15:30 Abnormal Lab Results - Last 24 Hours (Table) 05/02/18 05/02/18 05/02/18 Range/Units 15:30 15:30 15:30 WBC 11.6 H (3.8-10.6) k/uL Neutrophils # 9.5 H (1.3-7.7) k/uL Glucose 101 H (74-99) mg/dL AST 42 H (14-36) U/L Urine Appearance Cloudy H (Clear) Urine Protein 1+ H (Negative) Urine Ketones 1+ H (Negative) Urine Mucus Many H (None) /hpf Microbiology - Last 24 Hours (Table) 05/02/18 15:30 Urine Culture - Preliminary Urine,Voided Assessment and Plan (1) Ileus Current Visit: Yes Status: Acute Code(s): K56.7 - ILEUS, UNSPECIFIED SNOMED Code(s): 431024519 (2) Post-op pain Current Visit: Yes Status: Acute Code(s): G89.18 - OTHER ACUTE POSTPROCEDURAL PAIN SNOMED Code(s): 061524137 Plan: Given the lack of white count and despite the CT findings, I suspect that she is having a prolonged postoperative ileus likely secondary to her history of pelvic irradiation for her colon cancer. It is likely that her bowel will not respond in a normal fashion. I would recommend that we abstain from using narcotic pain medications as this is counterproductive to returning to normal bowel function. At this time, her pain is not requiring narcotics. Better alternatives might include IV Toradol or IV Tylenol. I have strongly encouraged her to walk regularly in the hallways. Additionally will provide her with an incentive spirometer as some of her fevers may be secondary to atelectasis. She will continue at this time with a diet slowly of sips and chips with aggressive IV rehydration until bowel function appears to be more normal. I would recommend that we abstain from stimulation of the intestines in the form of enema or stimulant laxative and allow the bowels to return to normal on their own. If she does begin to have more regular bowel function today, consideration could be made for advancing her diet slowly with the intention of discharge whenever she is able to take by mouth liquids and solids on a regular basis without nausea and vomiting. Antibiotics are not indicated at this time in my estimation. Thank you for the consult and I will continue to follow with you and please feel free to contact me should you have any specific questions.
[2018-05-03] MEDS ORDERED: ACETAMINOPHEN IV (For NPO) 1,000 MG in EMPTY BAG 1 BAG IVPB PRN (11:00)
--- NOTE | 2018-05-03 15:49 | P.HPIM ---
History of Present Illness H&P Date: 05/03/18 Chief Complaint: fever and pelvic pain Estella Silva is a 52-year-old woman who underwent vaginal hysterectomy 2 weeks ago. Over the last week, had lower abdominal pain with low-grade fevers. Over the last several days, she has had increasing nausea and vomiting along with the low-grade fevers and less regular bowel function. Patient denies any vaginal bleeding or abnormal discharge. Patient has a history of colon cancer with history of radiation therapy. His evaluated in emergency room, her temperature on presentation was 99, white blood count was 11.6 she was started on IV antibiotic Levaquin and Flagyl and was admitted to medical floor, consultation was placed for Dr. Veliz who performed hysterectomy on her [address] scan of the abdomen and pelvis was performed in ER due to significant tenderness, and revealed evidence of inflammation in the pelvis with possibility of fistula between the sigmoid colon and vaginal cuff with a 2.4 cm fluid collection at the uterine resection margin. Past Medical History Past Medical History: Cancer, Deep Vein Thrombosis (DVT), GERD/Reflux, Rheumatoid Arthritis (RA), Thyroid Disorder Additional Past Medical History / Comment(s): hx colon cancer,and chemo completed, BLOOD CLOT IN ABDOMEN AFTER BOWEL SURG, NEUROPATHY forrest legs and feet , prolapsed uterus(sx) History of Any Multi-Drug Resistant Organisms: None Reported Past Surgical History: Bladder Surgery, Bowel Resection, Hysterectomy, Tonsillectomy, Tubal Ligation Additional Past Surgical History / Comment(s): surgery for heavy uterine bleeding(?mesh), Past Anesthesia/Blood Transfusion Reactions: Family History of Problems w/ Anesthesia, Motion Sickness Additional Past Anesthesia/Blood Transfusion Reaction / Comment(s): MOTHER HAS PONV Smoking Status: Never smoker - Past Family History Father Family Medical History: Cancer Medications and Allergies Home Medications Medication Instructions Recorded Confirmed Type Gabapentin [Neurontin] 800 mg PO TID 02/10/18 05/02/18 History Levothyroxine Sodium [Synthroid] 137 mcg PO DAILY 02/10/18 05/02/18 History Nitrofurantoin Monohyd/M-Cryst 100 mg PO BID 05/02/18 05/02/18 History [Macrobid] rOPINIRole HCL 0.5 mg PO HS 05/02/18 05/02/18 History Allergies Allergy/AdvReac Type Severity Reaction Status Date / Time Penicillins Allergy Severe Swelling Verified 05/02/18 14:56 OF THROAT Physical Exam Vitals: Vital Signs Temp Pulse Pulse Resp BP BP Pulse Ox 05/03/18 15:10 100.3 F H 05/03/18 14:30 100.9 F H 05/03/18 08:58 97.1 F L 05/03/18 05:00 98.3 F 79 16 103/50 97 05/03/18 04:15 100.4 F H 05/03/18 02:38 99.9 F H 115 H 22 115/57 05/02/18 23:03 97.3 F L 76 16 100/53 96 05/02/18 19:11 98.2 F 74 18 97/53 97 05/02/18 17:00 86 97/52 98 05/02/18 16:00 80 112/64 96 Intake and Output 05/03/18 05/03/18 05/03/18 06:59 14:59 22:59 Intake Total 900 600 Balance 900 600 Intake: IV 900 Sodium Chloride 0.9% 1, 900 000 ml @ 100 mls/hr IV . Q10H [facility] Rx#:[id number] Intake, IV Titration 600 Amount Sodium Chloride 0.9% 1, 600 000 ml @ 100 mls/hr IV . Q10H [facility] Rx#:[id number] Other: Voiding Method Toilet Toilet # Voids 1 3 # Bowel Movements 3 In general patient is alert and oriented 3 in no apparent distress HEENT head normocephalic and atraumatic Neck is supple no JVD no goiter no lymphadenopathy Chest exam reveals a few scattered crackles no wheezing Cardiac exam reveals regular heart sounds S1 and S2 no gallops no murmurs Abdomen is soft with tenderness mostly in the right lower quadrant and left lower quadrant, no organomegaly no palpable masses no rigidity or rebound, bowel sounds audible in all 4 quadrants Extremity exam reveals no edema no cyanosis or clubbing Results CBC & Chem 7: 05/02/18 15:30 05/02/18 15:30 Labs: Abnormal Lab Results - Last 24 Hours (Table) 05/02/18 05/02/18 05/02/18 Range/Units 15:30 15:30 15:30 WBC 11.6 H (3.8-10.6) k/uL Neutrophils # 9.5 H (1.3-7.7) k/uL Glucose 101 H (74-99) mg/dL AST 42 H (14-36) U/L Urine Appearance Cloudy H (Clear) Urine Protein 1+ H (Negative) Urine Ketones 1+ H (Negative) Urine Mucus Many H (None) /hpf Microbiology - Last 24 Hours (Table) 05/02/18 15:30 Urine Culture - Preliminary Urine,Voided Thrombosis Risk Factor Assmnt - Choose All That Apply Any of the Below Risk Factors Present?: Yes Each Factor Represents 1 point: Obesity (BMI >25) Other Risk Factors: Yes Each Risk Factor Represents 3 Points: History of DVT/PE Other congenital or acquired thrombophilia - If yes, enter type in comment: No Thrombosis Risk Factor Assessment Total Risk Factor Score: 4 Thrombosis Risk Factor Assessment Level: Moderate Risk Assessment and Plan Plan: #1 febrile illness was mild leukocytosis, and pelvic pain in a 52-year-old female who is 2 weeks post vaginal hysterectomy, patient had urinary tract infection and was started on Macrobid as outpatient, computed tomography scan of his abdomen and pelvis reveals inflammatory changes and possible abscess. Infectious disease consultation was requested and Dr. Alamo was contacted to see patient. #2 underlying history of hypothyroidism maintained on Synthroid 137 g daily #3 underlying history of restless leg syndrome maintained on Requip 0.5 mg at bedtime #4 previous history of colon cancer At this time patient is maintained on IV fluid, she received IV antibiotic yesterday in the emergency room including Levaqlian and Flagyl, consultation for infectious disease was initiated and Dr. Alamo was contacted and asked to see patient today.
[2018-05-03 16:21] LABS: Basophils % (A) 0 %; Eosinophils % (A) 0 %; HCT 31.4 % (34.0-46.0); HGB 10.5 gm/dL (11.4-16.0); Lymphocytes # (A) 0.6 k/uL (1.0-4.8); Lymphocytes % (A) 7 %; MCH 28.6 pg (25.0-35.0); MCHC 33.3 g/dL (31.0-37.0); MCV 85.8 fL (80.0-100.0); Mean Platelet Volume 6.3; Monocytes # (A) 0.6 k/uL (0-1.0); Monocytes % (A) 6 %; Neutrophils # (A) 8.3 k/uL (1.3-7.7); Neutrophils % (A) 85 %; Platelet Count 327 k/uL (150-450); RBC 3.66 m/uL (3.80-5.40); RDW 11.6 % (11.5-15.5); WBC 9.8 k/uL (3.8-10.6)
--- NOTE | 2018-05-03 17:28 | P.CONS ---
History of Present Illness - Reason for Consult Consult date: 05/03/18 - Chief Complaint Abdominal pain and fever - History of Present Illness 52-year-old female who has a history of colon cancer from 10 years ago , at that time she had profound anemia the symptom was able to discover cancer at such a young age. She fortunately did not have metastatic disease, underwent surgical resection and chemotherapy. She has done well over time was having difficulties with uterine prolapse and because it was symptomatic on 10/2018 was taken the operating room for the vaginal hysterectomy, with ovarian salvage. The patient did well quite recently has developed difficulties with high-grade fevers 102 with chills and generalized malaise episodes of nausea with intermittent episodes of emesis and some discomfort which she finds quite tolerable. With the significant fevers and concerns to infection the infectious diseases consultation was requested. At this time the patient is febrile, she is sweating a bit and feels very poorly. She's having no nausea and has passed some loose stool earlier today without severe pain. Does have some improvement to the severe pain she was having in the suprapubic area this afternoon. She relates that she has had follow-up examinations after her colon cancer he was not having difficulties except for the vaginal prolapse. She did not receive radiation therapy regarding her colon cancer. Is noted she's had fever and chills and not paul rigors however. He was very poorly. She does have quite a good appetite at the moment but they've been limiting her intake because of the current difficulties. Review of Systems 52-year-old woman who is somewhat uncomfortable having fever at this time with sweat HEENT:Denies headache or acute visual change. Denies sinus or mouth discomforts. Denies neck stiffness or pain. Denies significant oral cavity pain. Denies difficulty on swallowing. Lungs: Denies significant shortness of breath, cough, sputum production, or hemoptysis. Cardiovascular: Denies significant shortness of breath, chest pain, chest wall pain, orthopnea, dyspnea on exertion, syncope Gastrointestinal: Her nausea is improved, she is not having emesis at this time , has had some loose stool without pain or melena or hematochezia occurring. She's had no hematemesis. The severe suprapubic pain is improved this afternoon. Musculoskeletal: denies significant myalgias or arthralgias. No new joint swelling. Denies new back pain. Skin: Denies new rash or lesions. No new ulcers or wounds are related.. Neuro: Denies headache or visual change. Denies any new onset weakness or difficulty with ambulation. Denies falls or seizures. Psychiatric:Denies anxiety or depression. Endocrine: Denies significant fatigue, denies significant weight loss or weight gain. Past Medical History Past Medical History: Cancer, Deep Vein Thrombosis (DVT), GERD/Reflux, Rheumatoid Arthritis (RA), Thyroid Disorder Additional Past Medical History / Comment(s): hx colon cancer,and chemo completed, BLOOD CLOT IN ABDOMEN AFTER BOWEL SURG, NEUROPATHY forrest legs and feet , prolapsed uterus(sx) History of Any Multi-Drug Resistant Organisms: None Reported Past Surgical History: Bladder Surgery, Bowel Resection, Hysterectomy, Tonsillectomy, Tubal Ligation Additional Past Surgical History / Comment(s): surgery for heavy uterine bleeding Past Anesthesia/Blood Transfusion Reactions: Family History of Problems w/ Anesthesia, Motion Sickness Additional Past Anesthesia/Blood Transfusion Reaction / Comm: MOTHER HAS PONV Additional Psychological History / Comment(s): and lives in the family home with her . Has 2 living children, her 19-year-old son was killed in a motorcycle accident 9 years ago. No experience no international travel. No animal exposures. Works as a home health care Smoking Status: Never smoker - Past Family History Father Family Medical History: Cancer Medications and Allergies Home Medications and Allergies Comment(s): Current Medications Acetaminophen (Tylenol Tab) 650 mg PO Q6HR PRN PRN Reason: Mild Pain or Fever > 100.5 Last Admin: 05/03/18 14:28 Dose: 650 mg Gabapentin (Neurontin) 800 mg PO TID [facility] Last Admin: 05/03/18 16:37 Dose: 800 mg Sodium Chloride (Saline 0.9%) 1,000 mls @ 100 mls/hr IV .Q10H [facility] Last Admin: 05/03/18 12:00 Dose: Not Given Acetaminophen 1,000 mg/ IV (Solution) 100 mls @ 400 mls/hr IVPB Q6HR PRN PRN Reason: Breakthrough Pain Stop: 05/04/18 06:14 Ertapenem 1 gm/ Sodium (Chloride) 50 mls @ 100 mls/hr IVPB Q24H [facility]; Protocol Ketorolac Tromethamine (Toradol) 30 mg IVP Q6HR PRN PRN Reason: Moderate Pain Stop: 05/07/18 17:10 Levothyroxine Sodium (Synthroid) 137 mcg PO DAILY@0630 [facility] Last Admin: 05/03/18 06:12 Dose: 137 mcg Metoclopramide HCl (Reglan) 10 mg IVP Q8H [facility] Last Admin: 05/03/18 13:11 Dose: 10 mg Morphine Sulfate (Morphine Sulfate (Inj)) 4 mg IV Q4HR PRN PRN Reason: Severe Pain Naloxone HCl (Narcan) 0.2 mg IV Q2M PRN PRN Reason: Opioid Reversal Ondansetron HCl (Zofran) 4 mg IVP Q8HR PRN PRN Reason: Nausea And Vomiting Pantoprazole Sodium (Protonix) 40 mg IV DAILY [facility] Last Admin: 05/03/18 08:55 Dose: 40 mg Ropinirole HCl (Requip) 0.5 mg PO [facility] Last Admin: 05/02/18 22:24 Dose: 0.5 mg Home Medications Medication Instructions Recorded Confirmed Type Gabapentin [Neurontin] 800 mg PO TID 02/10/18 05/02/18 History Levothyroxine Sodium [Synthroid] 137 mcg PO DAILY 02/10/18 05/02/18 History Nitrofurantoin Monohyd/M-Cryst 100 mg PO BID 05/02/18 05/02/18 History [Macrobid] rOPINIRole HCL 0.5 mg PO HS 05/02/18 05/02/18 History Allergies Allergy/AdvReac Type Severity Reaction Status Date / Time Penicillins Allergy Severe Swelling Verified 05/02/18 14:56 OF THROAT Physical Exam Vitals: Vital Signs Temp Pulse Pulse Resp BP BP Pulse Ox 05/03/18 16:36 99.4 F 05/03/18 15:53 99.0 F 68 16 105/53 96 05/03/18 15:10 100.3 F H 05/03/18 14:30 100.9 F H 05/03/18 08:58 97.1 F L 05/03/18 05:00 98.3 F 79 16 103/50 97 05/03/18 04:15 100.4 F H 05/03/18 02:38 99.9 F H 115 H 22 115/57 05/02/18 23:03 97.3 F L 76 16 100/53 96 05/02/18 19:11 98.2 F 74 18 97/53 97 Intake and Output 05/03/18 05/03/18 05/03/18 06:59 14:59 22:59 Intake Total 900 600 Balance 900 600 Intake: IV 900 Sodium Chloride 0.9% 1, 900 000 ml @ 100 mls/hr IV . Q10H [facility] Rx#:[id number] Intake, IV Titration 600 Amount Sodium Chloride 0.9% 1, 600 000 ml @ 100 mls/hr IV . Q10H [facility] Rx#:[id number] Other: Voiding Method Toilet Toilet Toilet # Voids 1 3 # Bowel Movements 3 Pleasant 52-year-old woman who currently has a fever and is having sweats HEENT: Anicteric conjunctiva are pink and moist nasal mucosa grossly intact without significant lesions, there is no thrush. Neck: The neck is supple without significant lymphadenopathy or thyromegaly. Lungs: Good bilateral air entry without significant crackles or wheezing. There is no significant bronchial sounds. There is no egophony or dullness. Heart: Regular rate and rhythm with an audible S1-S2, no S3 no S4. There is no significant murmur click or rub, PMI was nondisplaced. Abdomen: Few bowel sounds are heard, the abdomen is not distended, there is distinct tenderness over the suprapubic area but I can palpate no mass. She has no flank tenderness. There is some generalized abdominal discomfort. There is no significant bruising to the abdominal wall. Extremities: The upper extremities have excellent pulses they are symmetric, no significant petechiae or telangiectasia. No splinter hemorrhages were noted. The lower extremities are free from significant edema. The peripheral pulses were 2+ and symmetric. Neuro: Awake alert oriented to person place and time. There are no acute new gross focal sensory motor deficits. Results CBC & Chem 7: 05/03/18 15:44 05/02/18 15:30 Labs: Abnormal Lab Results - Last 24 Hours (Table) 05/03/18 Range/Units 15:44 RBC 3.66 L (3.80-5.40) m/uL Hgb 10.5 L (11.4-16.0) gm/dL Hct 31.4 L (34.0-46.0) % Neutrophils # 8.3 H (1.3-7.7) k/uL Lymphocytes # 0.6 L (1.0-4.8) k/uL Microbiology - Last 24 Hours (Table) 05/02/18 15:30 Urine Culture - Preliminary Urine,Voided Laboratory Results WBC 9.8 k/uL (3.8-10.6) 05/03/18 15:44 RBC 3.66 m/uL (3.80-5.40) L 05/03/18 15:44 Hgb 10.5 gm/dL (11.4-16.0) L 05/03/18 15:44 Hct 31.4 % (34.0-46.0) L 05/03/18 15:44 MCV 85.8 fL (80.0-100.0) 05/03/18 15:44 MCH 28.6 pg (25.0-35.0) 05/03/18 15:44 MCHC 33.3 g/dL (31.0-37.0) 05/03/18 15:44 RDW 11.6 % (11.5-15.5) 05/03/18 15:44 Plt Count 327 k/uL (150-450) 05/03/18 15:44 Neutrophils % 85 % 05/03/18 15:44 Lymphocytes % 7 % 05/03/18 15:44 Monocytes % 6 % 05/03/18 15:44 Eosinophils % 0 % 05/03/18 15:44 Basophils % 0 % 05/03/18 15:44 Neutrophils # 8.3 k/uL (1.3-7.7) H 05/03/18 15:44 Lymphocytes # 0.6 k/uL (1.0-4.8) L 05/03/18 15:44 Monocytes # 0.6 k/uL (0-1.0) 05/03/18 15:44 Eosinophils # 0.0 k/uL (0-0.7) 05/03/18 15:44 Basophils # 0.0 k/uL (0-0.2) 05/03/18 15:44 PT 10.1 sec (9.0-12.0) 05/02/18 15:30 INR 1.0 (<1.2) 05/02/18 15:30 APTT 25.8 sec (22.0-30.0) 05/02/18 15:30 Sodium 137 mmol/L (137-145) 05/02/18 15:30 Potassium 3.8 mmol/L (3.5-5.1) 05/02/18 15:30 Chloride 99 mmol/L (98-107) 05/02/18 15:30 Carbon Dioxide 27 mmol/L (22-30) 05/02/18 15:30 Anion Gap 11 mmol/L 05/02/18 15:30 BUN 10 mg/dL (7-17) 05/02/18 15:30 Creatinine 0.73 mg/dL (0.52-1.04) 05/02/18 15:30 Est GFR (CKD-EPI)AfAm >90 (>60 ml/min/1.73 sqM) 05/02/18 15:30 Est GFR (CKD-EPI)NonAf >90 (>60 ml/min/1.73 sqM) 05/02/18 15:30 Glucose 101 mg/dL (74-99) H 05/02/18 15:30 Plasma Lactic Acid Andrew 0.7 mmol/L (0.7-2.0) 05/02/18 15:30 Calcium 9.3 mg/dL (8.4-10.2) 05/02/18 15:30 Total Bilirubin 1.3 mg/dL (0.2-1.3) 05/02/18 15:30 AST 42 U/L (14-36) H 05/02/18 15:30 ALT 41 U/L (9-52) 05/02/18 15:30 Alkaline Phosphatase 121 U/L (38-126) 05/02/18 15:30 Total Protein 6.7 g/dL (6.3-8.2) 05/02/18 15:30 Albumin 3.9 g/dL (3.5-5.0) 05/02/18 15:30 Urine Color Light Brown 05/02/18 15:30 Urine Appearance Cloudy (Clear) H 05/02/18 15:30 Urine pH 5.5 (5.0-8.0) 05/02/18 15:30 Ur Specific [place] 1.021 (1.001-1.035) 05/02/18 15:30 Urine Protein 1+ (Negative) H 05/02/18 15:30 Urine Glucose (UA) Negative (Negative) 05/02/18 15:30 Urine Ketones 1+ (Negative) H 05/02/18 15:30 Urine Blood Negative (Negative) 05/02/18 15:30 Urine Nitrite Negative (Negative) 05/02/18 15:30 Urine Bilirubin Negative (Negative) 05/02/18 15:30 Urine Urobilinogen <2.0 mg/dL (<2.0) 05/02/18 15:30 Ur Leukocyte Esterase Negative (Negative) 05/02/18 15:30 Urine RBC 1 /hpf (0-5) 05/02/18 15:30 Urine WBC 3 /hpf (0-5) 05/02/18 15:30 Ur Squamous Epith Cells 3 /hpf (0-4) 05/02/18 15:30 Urine Mucus Many /hpf (None) H 05/02/18 15:30 Microbiology 05/02/18 15:30 Urine,Voided Urine Culture - Preliminary CT scan - abdomen: image reviewed (Did attempt to find radiologist not available. The patient has evidence of some fluid collection consistent with possible abscess. Unclear if there could be a fistula.) Assessment and Plan (1) Fever Narrative/Plan: Pleasant 52-year-old woman who presents to hospital with a 5 day history of progressive symptoms associated with fevers and chills and sweats as well as progressive abdominal pain. At presentation there was evidence of leukocytosis of 13.1 and fever. This afternoon she is feeling just slightly better but continues to feel poorly. There is concerned that she could have an ileus, she is passing some loose stool and is having no difficulties with nausea or emesis. The CT is evaluated, the surgical note is reviewed and there is evidence of an extensive surgical procedure which could be resulting in some of the significant inflammation that is being seen., However there does appear to be a fluid collection and with the patient's symptoms of fever chills and pain in abscess in that area is certainly to be considered. She received some antibiotic therapy and with that there has been an improvement of her white blood cell count. With her penicillin ALLERGY we'll utilize ertapenem at this point in time, Toradol is being given for fever and pain control. Hopefully in a short period of time she'll have a marked improvement and there may be option for oral antibiotics to complete the course of therapy. The gynecology noted reviewed and appears to be no plan for surgical intervention at this time. There is a urine culture that is pending but she does not have significant urinary symptoms except the significant suprapubic pain which could be postoperative. Fever and white blood cell count will be monitored which will further help determine the course of therapy. Current Visit: Yes Status: Acute Code(s): R50.9 - FEVER, UNSPECIFIED SNOMED Code(s): 630930036 (2) Leukocytosis Current Visit: Yes Status: Acute Code(s): D72.829 - ELEVATED WHITE BLOOD CELL COUNT, UNSPECIFIED SNOMED Code(s): 831319229 (3) Intra-abdominal abscess post-procedure Current Visit: Yes Status: Acute Code(s): T81.4XXA - INFECTION FOLLOWING A PROCEDURE, INITIAL ENCOUNTER; K65.1 - PERITONEAL ABSCESS SNOMED Code(s): 9937158
[2018-05-03] MEDS: ERTAPENEM 1 GM in SODIUM CHLORIDE 0.9% 50 ML IVPB SCH (17:44)
[2018-05-03] MEDS: ONDANSETRON 4 MG/2 ML VIAL IVP PRN (23:25)
[2018-05-04] MEDS: KETOROLAC 30 MG/ML 1 ML VIAL IVP PRN ×3 (00:15→15:51)
[2018-05-04] MEDS: SODIUM CHLORIDE 0.9% 1,000 ML IV SCH ×3 (03:42→21:57)
[2018-05-04] MEDS: METOCLOPRAMIDE 5 MG/ML 2 ML VIAL IVP SCH ×3 (05:50→20:57)
[2018-05-04] MEDS: LEVOTHYROXINE 137 MCG TAB PO SCH (06:10)
[2018-05-04] MEDS: GABAPENTIN 400 MG CAP PO SCH ×3 (07:24→20:57)
[2018-05-04] MEDS: PANTOPRAZOLE 40 MG/10 ML VIAL IV SCH (07:24)
[2018-05-04 08:04] LABS: Basophils % (A) 0 %; Eosinophils # (A) 0.1 k/uL (0-0.7); Eosinophils % (A) 1 %; HCT 28.7 % (34.0-46.0); HGB 9.6 gm/dL (11.4-16.0); Lymphocytes # (A) 0.6 k/uL (1.0-4.8); Lymphocytes % (A) 8 %; MCH 28.4 pg (25.0-35.0); MCHC 33.3 g/dL (31.0-37.0); MCV 85.2 fL (80.0-100.0); Mean Platelet Volume 6.5; Monocytes # (A) 0.6 k/uL (0-1.0); Monocytes % (A) 8 %; Neutrophils # (A) 6.1 k/uL (1.3-7.7); Neutrophils % (A) 81 %; Platelet Count 288 k/uL (150-450); RBC 3.37 m/uL (3.80-5.40); RDW 11.8 % (11.5-15.5); WBC 7.6 k/uL (3.8-10.6)
[2018-05-04 08:18] LABS: ALT 34 U/L (9-52); AST 22 U/L (14-36); Albumin 2.7 g/dL (3.5-5.0); Alkaline Phosphatase 99 U/L (38-126); Anion Gap 11 mmol/L; Blood Urea Nitrogen 9 mg/dL (7-17); Calcium 8.2 mg/dL (8.4-10.2); Carbon Dioxide 21 mmol/L (22-30); Chloride 109 mmol/L (98-107); Glucose 78 mg/dL (74-99); Potassium 3.6 mmol/L (3.5-5.1); Sodium 141 mmol/L (137-145); Total Bilirubin 0.8 mg/dL (0.2-1.3); Total Protein 5.2 g/dL (6.3-8.2)
--- NOTE | 2018-05-04 12:34 | P.PN ---
Subjective Progress Note Date: 05/04/18 Principal diagnosis: Fever, nausea and vomiting, ileus The patient reports that she feels significantly better today though still having some occasional nausea and vomiting. She feels this may be secondary to an empty stomach and the medication she is receiving through her IV which she feels leaves a taste in her mouth. She does report that she has moved her bowels a regular basis and is now passing regular flatus. She does feel quite hungry and is anxious to try something more than sips and chips. Objective - Vital Signs Vital signs: Vital Signs Temp 99.0 F 05/04/18 09:00 Pulse 97 05/04/18 09:00 Resp 18 05/04/18 09:00 BP 127/81 05/04/18 09:00 Pulse Ox 95 05/04/18 09:00 Intake & Output 05/03/18 05/04/18 05/04/18 18:59 06:59 18:59 Intake Total 600 900 Output Total 100 Balance 600 800 Intake: IV 900 Sodium Chloride 0.9% 1, 900 000 ml @ 100 mls/hr IV . Q10H [facility] Rx#:[id number] Intake, IV Titration 600 Amount Sodium Chloride 0.9% 1, 600 000 ml @ 100 mls/hr IV . Q10H [facility] Rx#:[id number] Output: Emesis 100 Other: Voiding Method Toilet Toilet # Voids 3 1 # Bowel Movements 3 1 - Exam In general, this is a well-developed, well-nourished white female in no apparent distress. Her abdomen is nondistended, soft, with significantly less tenderness than yesterday in the suprapubic region. There is no guarding or rebound. Her extremities are without any cyanosis, clubbing, or edema and are nontender to palpation bilaterally. - Labs CBC & Chem 7: 05/04/18 07:40 05/04/18 07:40 Labs: Abnormal Lab Results - Last 24 Hours (Table) 05/03/18 05/04/18 05/04/18 Range/Units 15:44 07:40 07:40 RBC 3.66 L 3.37 L (3.80-5.40) m/uL Hgb 10.5 L 9.6 L (11.4-16.0) gm/dL Hct 31.4 L 28.7 L (34.0-46.0) % Neutrophils # 8.3 H (1.3-7.7) k/uL Lymphocytes # 0.6 L 0.6 L (1.0-4.8) k/uL Chloride 109 H (98-107) mmol/L Carbon Dioxide 21 L (22-30) mmol/L Calcium 8.2 L (8.4-10.2) mg/dL Total Protein 5.2 L (6.3-8.2) g/dL Albumin 2.7 L (3.5-5.0) g/dL Microbiology - Last 24 Hours (Table) 05/02/18 15:30 Urine Culture - Final Urine,Voided 05/02/18 15:30 Blood Culture - Preliminary Blood No Growth after 24 hours Assessment and Plan (1) Ileus Current Visit: Yes Status: Acute Code(s): K56.7 - ILEUS, UNSPECIFIED SNOMED Code(s): 518555349 (2) Post-op pain Current Visit: Yes Status: Acute Code(s): G89.18 - OTHER ACUTE POSTPROCEDURAL PAIN SNOMED Code(s): 659997456 Plan: I appreciate the input from infectious disease. White counts have come entirely into the normal range though she does continue to have low-grade fevers. Given her improvement in bowel function and her report of hunger, I will advance her diet to clear liquids. Antibiotic coverage will continue to be guided by infectious disease but I anticipate an endpoint of no fevers for 24 -48 hours with significant clinical improvement unless infectious disease feels otherwise.
--- NOTE | 2018-05-04 12:59 | P.PN ---
Subjective Progress Note Date: 05/04/18 Estella Silva is a 52-year-old woman who underwent vaginal hysterectomy 2 weeks ago. Over the last week, had lower abdominal pain with low-grade fevers. Over the last several days, she has had increasing nausea and vomiting along with the low-grade fevers and less regular bowel function. Patient denies any vaginal bleeding or abnormal discharge. Patient has a history of colon cancer with history of radiation therapy. His evaluated in emergency room, her temperature on presentation was 99, white blood count was 11.6 she was started on IV antibiotic Levaquin and Flagyl and was admitted to medical floor, consultation was placed for Dr. Veliz who performed hysterectomy on her [address] scan of the abdomen and pelvis was performed in ER due to significant tenderness, and revealed evidence of inflammation in the pelvis with possibility of fistula between the sigmoid colon and vaginal cuff with a 2.4 cm fluid collection at the uterine resection margin. Objective - Vital Signs Vital signs: Vital Signs Temp 99.0 F 05/04/18 09:00 Pulse 97 05/04/18 09:00 Resp 18 05/04/18 09:00 BP 127/81 05/04/18 09:00 Pulse Ox 95 05/04/18 09:00 Intake & Output 05/03/18 05/04/18 05/04/18 18:59 06:59 18:59 Intake Total 600 900 Output Total 100 Balance 600 800 Intake: IV 900 Sodium Chloride 0.9% 1, 900 000 ml @ 100 mls/hr IV . Q10H [facility] Rx#:[id number] Intake, IV Titration 600 Amount Sodium Chloride 0.9% 1, 600 000 ml @ 100 mls/hr IV . Q10H [facility] Rx#:[id number] Output: Emesis 100 Other: Voiding Method Toilet Toilet # Voids 3 1 # Bowel Movements 3 1 - Exam In general patient is alert and oriented 3 in no apparent distress HEENT head normocephalic and atraumatic Neck is supple no JVD no goiter no lymphadenopathy Chest exam reveals a few scattered crackles no wheezing Cardiac exam reveals regular heart sounds S1 and S2 no gallops no murmurs Abdomen is soft with tenderness mostly in the right lower quadrant and left lower quadrant, no organomegaly no palpable masses no rigidity or rebound, bowel sounds audible in all 4 quadrants Extremity exam reveals no edema no cyanosis or clubbing - Labs CBC & Chem 7: 05/04/18 07:40 05/04/18 07:40 Labs: Abnormal Lab Results - Last 24 Hours (Table) 05/03/18 05/04/18 05/04/18 Range/Units 15:44 07:40 07:40 RBC 3.66 L 3.37 L (3.80-5.40) m/uL Hgb 10.5 L 9.6 L (11.4-16.0) gm/dL Hct 31.4 L 28.7 L (34.0-46.0) % Neutrophils # 8.3 H (1.3-7.7) k/uL Lymphocytes # 0.6 L 0.6 L (1.0-4.8) k/uL Chloride 109 H (98-107) mmol/L Carbon Dioxide 21 L (22-30) mmol/L Calcium 8.2 L (8.4-10.2) mg/dL Total Protein 5.2 L (6.3-8.2) g/dL Albumin 2.7 L (3.5-5.0) g/dL Microbiology - Last 24 Hours (Table) 05/02/18 15:30 Urine Culture - Final Urine,Voided 05/02/18 15:30 Blood Culture - Preliminary Blood No Growth after 24 hours Assessment and Plan Plan: #1 febrile illness with mild leukocytosis, and pelvic pain in a 52-year-old female who is 2 weeks post vaginal hysterectomy, patient had urinary tract infection and was started on Macrobid as outpatient, computed tomography scan of his abdomen and pelvis reveals inflammatory changes and possible abscess. Infectious disease consultation was requested and Dr. Alamo was contacted to see patient. Patient was started yesterday on Ertapenem 1 g IV every 24 hours, there is some improvement since yesterday white blood count has normalized however patient is still having fever spikes, will continue to monitor. #2 underlying history of hypothyroidism maintained on Synthroid 137 g daily #3 underlying history of restless leg syndrome maintained on Requip 0.5 mg at bedtime #4 previous history of colon cancer Continue with current management advance diet gradually
--- NOTE | 2018-05-04 15:08 | P.PN ---
Subjective Progress Note Date: 05/04/18 52-year-old female who has a history of colon cancer from 10 years ago , at that time she had profound anemia the symptom was able to discover cancer at such a young age. She fortunately did not have metastatic disease, underwent surgical resection and chemotherapy. She has done well over time was having difficulties with uterine prolapse and because it was symptomatic on 10/2018 was taken the operating room for the vaginal hysterectomy, with ovarian salvage. The patient did well quite recently has developed difficulties with high-grade fevers 102 with chills and generalized malaise episodes of nausea with intermittent episodes of emesis and some discomfort which she finds quite tolerable. With the significant fevers and concerns to infection the infectious diseases consultation was requested. At this time the patient is febrile, she is sweating a bit and feels very poorly. She's having no nausea and has passed some loose stool earlier today without severe pain. Does have some improvement to the severe pain she was having in the suprapubic area this afternoon. She relates that she has had follow-up examinations after her colon cancer he was not having difficulties except for the vaginal prolapse. She did not receive radiation therapy regarding her colon cancer. Is noted she's had fever and chills and not paul rigors however. He was very poorly. She does have quite a good appetite at the moment but they've been limiting her intake because of the current difficulties. 05/04/2018 patient is feeling better today and that this afternoon she is having no fever but did have 101.1 fever overnight. She's had 1 emesis today but currently is hungry and looks forward to eating some Jell-O. Abdominal pain is improved but still has some tenderness but less so than at admission. Case is discussed with the cocktail lounge manager. Objective - Vital Signs Vital signs: Vital Signs Temp 99.0 F 05/04/18 09:00 Pulse 97 05/04/18 09:00 Resp 18 05/04/18 09:00 BP 127/81 05/04/18 09:00 Pulse Ox 95 05/04/18 09:00 Intake & Output 05/03/18 05/04/18 05/04/18 18:59 06:59 18:59 Intake Total 600 900 800 Output Total 100 Balance 600 800 800 Intake: IV 900 800 Sodium Chloride 0.9% 1, 900 800 000 ml @ 100 mls/hr IV . Q10H [facility] Rx#:[id number] Intake, IV Titration 600 Amount Sodium Chloride 0.9% 1, 600 000 ml @ 100 mls/hr IV . Q10H [facility] Rx#:[id number] Oral 0 Output: Emesis 100 Other: Voiding Method Toilet Toilet # Voids 3 1 # Bowel Movements 3 1 - Exam Pleasant 52-year-old woman who had a fever overnight of 101 better at this time , his improved appetite but has had some emesis earlier today HEENT: Anicteric conjunctiva are pink and moist nasal mucosa grossly intact without significant lesions, there is no thrush. Neck: The neck is supple without significant lymphadenopathy or thyromegaly. Lungs: Good bilateral air entry without significant crackles or wheezing. There is no significant bronchial sounds. There is no egophony or dullness. Heart: Regular rate and rhythm with an audible S1-S2, no S3 no S4. There is no significant murmur click or rub, PMI was nondisplaced. Abdomen: Few bowel sounds are heard, the abdomen is not distended, there is distinct tenderness over the suprapubic area but I can palpate no mass. She has no flank tenderness. There is some generalized abdominal discomfort. There is no significant bruising to the abdominal wall. Extremities: The upper extremities have excellent pulses they are symmetric, no significant petechiae or telangiectasia. No splinter hemorrhages were noted. The lower extremities are free from significant edema. The peripheral pulses were 2+ and symmetric. Neuro: Awake alert oriented to person place and time. There are no acute new gross focal sensory motor deficits. - Labs CBC & Chem 7: 05/04/18 07:40 05/04/18 07:40 Labs: Abnormal Lab Results - Last 24 Hours (Table) 05/03/18 05/04/18 05/04/18 Range/Units 15:44 07:40 07:40 RBC 3.66 L 3.37 L (3.80-5.40) m/uL Hgb 10.5 L 9.6 L (11.4-16.0) gm/dL Hct 31.4 L 28.7 L (34.0-46.0) % Neutrophils # 8.3 H (1.3-7.7) k/uL Lymphocytes # 0.6 L 0.6 L (1.0-4.8) k/uL Chloride 109 H (98-107) mmol/L Carbon Dioxide 21 L (22-30) mmol/L Calcium 8.2 L (8.4-10.2) mg/dL Total Protein 5.2 L (6.3-8.2) g/dL Albumin 2.7 L (3.5-5.0) g/dL Microbiology - Last 24 Hours (Table) 05/02/18 15:30 Urine Culture - Final Urine,Voided 05/02/18 15:30 Blood Culture - Preliminary Blood No Growth after 24 hours Laboratory Results WBC 7.6 k/uL (3.8-10.6) 05/04/18 07:40 RBC 3.37 m/uL (3.80-5.40) L 05/04/18 07:40 Hgb 9.6 gm/dL (11.4-16.0) L 05/04/18 07:40 Hct 28.7 % (34.0-46.0) L 05/04/18 07:40 MCV 85.2 fL (80.0-100.0) 05/04/18 07:40 MCH 28.4 pg (25.0-35.0) 05/04/18 07:40 MCHC 33.3 g/dL (31.0-37.0) 05/04/18 07:40 RDW 11.8 % (11.5-15.5) 05/04/18 07:40 Plt Count 288 k/uL (150-450) 05/04/18 07:40 Neutrophils % 81 % 05/04/18 07:40 Lymphocytes % 8 % 05/04/18 07:40 Monocytes % 8 % 05/04/18 07:40 Eosinophils % 1 % 05/04/18 07:40 Basophils % 0 % 05/04/18 07:40 Neutrophils # 6.1 k/uL (1.3-7.7) 05/04/18 07:40 Lymphocytes # 0.6 k/uL (1.0-4.8) L 05/04/18 07:40 Monocytes # 0.6 k/uL (0-1.0) 05/04/18 07:40 Eosinophils # 0.1 k/uL (0-0.7) 05/04/18 07:40 Basophils # 0.0 k/uL (0-0.2) 05/04/18 07:40 PT 10.1 sec (9.0-12.0) 05/02/18 15:30 INR 1.0 (<1.2) 05/02/18 15:30 APTT 25.8 sec (22.0-30.0) 05/02/18 15:30 Sodium 141 mmol/L (137-145) 05/04/18 07:40 Potassium 3.6 mmol/L (3.5-5.1) 05/04/18 07:40 Chloride 109 mmol/L (98-107) H 05/04/18 07:40 Carbon Dioxide 21 mmol/L (22-30) L 05/04/18 07:40 Anion Gap 11 mmol/L 05/04/18 07:40 BUN 9 mg/dL (7-17) 05/04/18 07:40 Creatinine 0.63 mg/dL (0.52-1.04) 05/04/18 07:40 Est GFR (CKD-EPI)AfAm >90 (>60 ml/min/1.73 sqM) 05/04/18 07:40 Est GFR (CKD-EPI)NonAf >90 (>60 ml/min/1.73 sqM) 05/04/18 07:40 Glucose 78 mg/dL (74-99) 05/04/18 07:40 Plasma Lactic Acid Andrew 0.7 mmol/L (0.7-2.0) 05/02/18 15:30 Calcium 8.2 mg/dL (8.4-10.2) L 05/04/18 07:40 Total Bilirubin 0.8 mg/dL (0.2-1.3) 05/04/18 07:40 AST 22 U/L (14-36) 05/04/18 07:40 ALT 34 U/L (9-52) 05/04/18 07:40 Alkaline Phosphatase 99 U/L (38-126) 05/04/18 07:40 Total Protein 5.2 g/dL (6.3-8.2) L 05/04/18 07:40 Albumin 2.7 g/dL (3.5-5.0) L 05/04/18 07:40 Urine Color Light Brown 05/02/18 15:30 Urine Appearance Cloudy (Clear) H 05/02/18 15:30 Urine pH 5.5 (5.0-8.0) 05/02/18 15:30 Ur Specific Benton 1.021 (1.001-1.035) 05/02/18 15:30 Urine Protein 1+ (Negative) H 05/02/18 15:30 Urine Glucose (UA) Negative (Negative) 05/02/18 15:30 Urine Ketones 1+ (Negative) H 05/02/18 15:30 Urine Blood Negative (Negative) 05/02/18 15:30 Urine Nitrite Negative (Negative) 05/02/18 15:30 Urine Bilirubin Negative (Negative) 05/02/18 15:30 Urine Urobilinogen <2.0 mg/dL (<2.0) 05/02/18 15:30 Ur Leukocyte Esterase Negative (Negative) 05/02/18 15:30 Urine RBC 1 /hpf (0-5) 05/02/18 15:30 Urine WBC 3 /hpf (0-5) 05/02/18 15:30 Ur Squamous Epith Cells 3 /hpf (0-4) 05/02/18 15:30 Urine Mucus Many /hpf (None) H 05/02/18 15:30 Microbiology 05/02/18 15:30 Urine,Voided Urine Culture - Final 05/02/18 15:30 Blood Blood Culture - Preliminary No Growth after 24 hours Assessment and Plan (1) Fever Narrative/Plan: Pleasant 52-year-old woman who presents to hospital with a 5 day history of progressive symptoms associated with fevers and chills and sweats as well as progressive abdominal pain. At presentation there was evidence of leukocytosis of 13.1 and fever. This afternoon she is feeling just slightly better but continues to feel poorly. There is concerned that she could have an ileus, she is passing some loose stool and is having no difficulties with nausea or emesis. The CT is evaluated, the surgical note is reviewed and there is evidence of an extensive surgical procedure which could be resulting in some of the significant inflammation that is being seen., However there does appear to be a fluid collection and with the patient's symptoms of fever chills and pain in abscess in that area is certainly to be considered. She received some antibiotic therapy and with that there has been an improvement of her white blood cell count. With her penicillin ALLERGY we'll utilize ertapenem at this point in time, Toradol is being given for fever and pain control. Hopefully in a short period of time she'll have a marked improvement and there may be option for oral antibiotics to complete the course of therapy. The gynecology noted reviewed and appears to be no plan for surgical intervention at this time. There is a urine culture that is pending but she does not have significant urinary symptoms except the significant suprapubic pain which could be postoperative. Fever and white blood cell count will be monitored which will further help determine the course of therapy. 05/04/2018 patient is showing some improvement in that she is not having severe fever this afternoon, but still was 101.1 overnight. Her white count is down to 7.6 and her pain is more tolerable. In this time she is showing some improvement she understands that she needs to have no fever for a day able tolerate solid food before she is ready for discharge. She has some desires to try to get at home for the upcoming holiday but is very clear that she is to be feeling better before she is discharged. When she is ready for discharge to home attempt moxifloxacin to complete 10 days of therapy for the completion of treatment. Fortunately Toradol has been highly effective for fever and pain control. Current Visit: Yes Status: Acute Code(s): R50.9 - FEVER, UNSPECIFIED SNOMED Code(s): 039628703 (2) Leukocytosis Current Visit: Yes Status: Acute Code(s): D72.829 - ELEVATED WHITE BLOOD CELL COUNT, UNSPECIFIED SNOMED Code(s): 061805478 (3) Intra-abdominal abscess post-procedure Current Visit: Yes Status: Acute Code(s): T81.4XXA - INFECTION FOLLOWING A PROCEDURE, INITIAL ENCOUNTER; K65.1 - PERITONEAL ABSCESS SNOMED Code(s): 7491791
[2018-05-04] MEDS: ERTAPENEM 1 GM in SODIUM CHLORIDE 0.9% 50 ML IVPB SCH (17:13)
[2018-05-04] MEDS: ONDANSETRON 4 MG/2 ML VIAL IVP PRN (21:57)
[2018-05-05] MEDS: LEVOTHYROXINE 137 MCG TAB PO SCH (06:11)
[2018-05-05] MEDS: METOCLOPRAMIDE 5 MG/ML 2 ML VIAL IVP SCH ×3 (06:11→20:24)
[2018-05-05] MEDS: KETOROLAC 30 MG/ML 1 ML VIAL IVP PRN (06:13)
[2018-05-05 07:22] LABS: Basophils % (A) 0 %; Eosinophils % (A) 1 %; HCT 26.1 % (34.0-46.0); HGB 8.7 gm/dL (11.4-16.0); Lymphocytes # (A) 0.7 k/uL (1.0-4.8); Lymphocytes % (A) 13 %; MCH 28.3 pg (25.0-35.0); MCHC 33.4 g/dL (31.0-37.0); MCV 84.8 fL (80.0-100.0); Mean Platelet Volume 6.5; Monocytes # (A) 0.5 k/uL (0-1.0); Monocytes % (A) 9 %; Neutrophils # (A) 4.1 k/uL (1.3-7.7); Neutrophils % (A) 76 %; Platelet Count 259 k/uL (150-450); RBC 3.08 m/uL (3.80-5.40); RDW 11.8 % (11.5-15.5); WBC 5.4 k/uL (3.8-10.6)
[2018-05-05 07:44] LABS: ALT 30 U/L (9-52); AST 23 U/L (14-36); Albumin 2.5 g/dL (3.5-5.0); Alkaline Phosphatase 100 U/L (38-126); Anion Gap 8 mmol/L; Blood Urea Nitrogen 7 mg/dL (7-17); Calcium 7.9 mg/dL (8.4-10.2); Carbon Dioxide 24 mmol/L (22-30); Chloride 108 mmol/L (98-107); Glucose 103 mg/dL (74-99); Potassium 3.8 mmol/L (3.5-5.1); Sodium 140 mmol/L (137-145); Total Bilirubin 0.5 mg/dL (0.2-1.3); Total Protein 4.9 g/dL (6.3-8.2)
[2018-05-05] MEDS: PANTOPRAZOLE 40 MG/10 ML VIAL IV SCH (09:17)
[2018-05-05] MEDS: GABAPENTIN 400 MG CAP PO SCH ×3 (09:17→20:28)
--- NOTE | 2018-05-05 11:05 | P.PN ---
Subjective Progress Note Date: 05/05/18 Principal diagnosis: Fever, nausea and vomiting, ileus The patient reports feeling significantly improved today. She has minimal ongoing pain has not had a fever in over 24 hours. She does feel very hungry and is tolerating liquids. There is no further nausea or vomiting and bowel function is reportedly normal. Objective - Vital Signs Vital signs: Vital Signs Temp 99.8 F H 05/05/18 05:53 Pulse 80 05/05/18 05:53 Resp 16 05/05/18 05:53 BP 108/72 05/05/18 05:53 Pulse Ox 95 05/05/18 05:53 Intake & Output 05/04/18 05/05/18 05/05/18 18:59 06:59 18:59 Intake Total 800 1150 Balance 800 1150 Intake: IV 800 800 Sodium Chloride 0.9% 1, 800 800 000 ml @ 100 mls/hr IV . Q10H [facility] Rx#:[id number] Intake, IV Titration 350 Amount Sodium Chloride 0.9% 1, 350 000 ml @ 100 mls/hr IV . Q10H [facility] Rx#:[id number] Oral 0 Other: Voiding Method Toilet # Voids 1 1 # Emeses 1 - Exam In general, this is a well-developed, well-nourished white female in no acute distress. Her abdomen is nondistended, is soft, nontender, without any palpable masses. The previous suprapubic tenderness is minimal at most today. Her extremities are without any cyanosis, clubbing, or any significant edema. - Labs CBC & Chem 7: 05/05/18 06:38 05/05/18 06:38 Labs: Abnormal Lab Results - Last 24 Hours (Table) 05/05/18 05/05/18 Range/Units 06:38 06:38 RBC 3.08 L (3.80-5.40) m/uL Hgb 8.7 L (11.4-16.0) gm/dL Hct 26.1 L (34.0-46.0) % Lymphocytes # 0.7 L (1.0-4.8) k/uL Chloride 108 H (98-107) mmol/L Glucose 103 H (74-99) mg/dL Calcium 7.9 L (8.4-10.2) mg/dL Total Protein 4.9 L (6.3-8.2) g/dL Albumin 2.5 L (3.5-5.0) g/dL Microbiology - Last 24 Hours (Table) 05/02/18 15:30 Blood Culture - Preliminary Blood No Growth after 48 hours Assessment and Plan (1) Ileus Current Visit: Yes Status: Acute Code(s): K56.7 - ILEUS, UNSPECIFIED SNOMED Code(s): 067128683 (2) Post-op pain Current Visit: Yes Status: Acute Code(s): G89.18 - OTHER ACUTE POSTPROCEDURAL PAIN SNOMED Code(s): 310284427 Plan: The patient has now been approximately 36 hours afebrile on IV antibiotics. She is hungry and I therefore will advance her diet to regular. I will also decrease her IV fluids just to keep open. Should she tolerate a regular diet, she will likely be discharged home to follow-up in my office as previously scheduled in approximately 3 weeks' time. She is to have a 10 day course of oral antibiotics as described in Dr. Alamo' note. I have otherwise instructed her to call for any significantly increasing symptoms or further problems. We' ll await primary care for final discharge as well as Dr. Alamo' input but, at this point, see no reason why she should not be discharged later today.
--- NOTE | 2018-05-05 12:14 | P.PN ---
Subjective Progress Note Date: 05/05/18 Estella Silva is a 52-year-old woman who underwent vaginal hysterectomy 2 weeks ago. Over the last week, had lower abdominal pain with low-grade fevers. Over the last several days, she has had increasing nausea and vomiting along with the low-grade fevers and less regular bowel function. Patient denies any vaginal bleeding or abnormal discharge. Patient has a history of colon cancer with history of radiation therapy. His evaluated in emergency room, her temperature on presentation was 99, white blood count was 11.6 she was started on IV antibiotic Levaquin and Flagyl and was admitted to medical floor, consultation was placed for Dr. Veliz who performed hysterectomy on her [address] scan of the abdomen and pelvis was performed in ER due to significant tenderness, and revealed evidence of inflammation in the pelvis with possibility of fistula between the sigmoid colon and vaginal cuff with a 2.4 cm fluid collection at the uterine resection margin. On 05/05/2018 patient only resting comfortably in bed. States she is feeling significantly improved from yesterday. Currently tolerating liquid diet. Denies any further nausea or vomiting. Per Dr. Lewis patient has been placed on regular diet. currently on IV Invanz. ID following Objective - Vital Signs Vital signs: Vital Signs Temp 99.8 F H 05/05/18 05:53 Pulse 80 05/05/18 08:00 Resp 16 05/05/18 08:00 BP 108/72 05/05/18 05:53 Pulse Ox 95 05/05/18 05:53 Intake & Output 05/04/18 05/05/18 05/05/18 18:59 06:59 18:59 Intake Total 800 1150 Balance 800 1150 Intake: IV 800 800 Sodium Chloride 0.9% 1, 800 800 000 ml @ 100 mls/hr IV . Q10H [facility] Rx#:[id number] Intake, IV Titration 350 Amount Sodium Chloride 0.9% 1, 350 000 ml @ 100 mls/hr IV . Q10H [facility] Rx#:[id number] Oral 0 Other: Voiding Method Toilet Toilet # Voids 1 1 # Emeses 1 - Exam Head normocephalic Neck supple Lungs clear to auscultation bilaterally no wheezing or crackles Heart regular rate and rhythm S1-S2, no rub or gallop Abdomen is soft nontender nondistended positive bowel sounds no hepatosplenomegaly Extremities no edema Neuro alert and orientated to 3 - Labs CBC & Chem 7: 05/05/18 06:38 05/05/18 06:38 Labs: Abnormal Lab Results - Last 24 Hours (Table) 05/05/18 05/05/18 Range/Units 06:38 06:38 RBC 3.08 L (3.80-5.40) m/uL Hgb 8.7 L (11.4-16.0) gm/dL Hct 26.1 L (34.0-46.0) % Lymphocytes # 0.7 L (1.0-4.8) k/uL Chloride 108 H (98-107) mmol/L Glucose 103 H (74-99) mg/dL Calcium 7.9 L (8.4-10.2) mg/dL Total Protein 4.9 L (6.3-8.2) g/dL Albumin 2.5 L (3.5-5.0) g/dL Microbiology - Last 24 Hours (Table) 05/02/18 15:30 Blood Culture - Preliminary Blood No Growth after 48 hours Assessment and Plan Assessment: #1 febrile illness with mild leukocytosis, and pelvic pain in a 52-year-old female who is 2 weeks post vaginal hysterectomy, patient had urinary tract infection and was started on Macrobid as outpatient, computed tomography scan of his abdomen and pelvis reveals inflammatory changes and possible abscess. Infectious disease consultation was requested and Dr. Alamo was contacted to see patient. Patient was started yesterday on Ertapenem 1 g IV every 24 hours, there is some improvement since yesterday white blood count has normalized however patient is still having fever spikes, will continue to monitor. Patient has been advanced to a regular diet per Dr. Langley. #2 underlying history of hypothyroidism maintained on Synthroid 137 g daily #3 underlying history of restless leg syndrome maintained on Requip 0.5 mg at bedtime #4 previous history of colon cancer #5 patient having diarrhea stool for C. diff has been ordered. Continue with current management GI prophylaxis Protonix, DVT prophylaxis SCDs, hemoglobin currently 8.6 iron studies have been ordered and occult stool ordered I performed an examination of the patient and discussed their management with the Nurse Practitioner. I have reviewed the Nurse Practitioner's notes and agree with the documented findings and plan of care
[2018-05-05] MEDS: ERTAPENEM 1 GM in SODIUM CHLORIDE 0.9% 50 ML IVPB SCH (17:30)
[2018-05-06] MEDS: METOCLOPRAMIDE 5 MG/ML 2 ML VIAL IVP SCH (06:17)
[2018-05-06] MEDS: LEVOTHYROXINE 137 MCG TAB PO SCH (06:24)
[2018-05-06] MEDS ORDERED: PANTOPRAZOLE 40 MG TABLET PO SCH (07:30)
[2018-05-06] MEDS: GABAPENTIN 400 MG CAP PO SCH (07:54)
[2018-05-06 07:58] LABS: Basophils % (A) 0 %; Eosinophils # (A) 0.1 k/uL (0-0.7); Eosinophils % (A) 2 %; HCT 29.4 % (34.0-46.0); HGB 9.9 gm/dL (11.4-16.0); Lymphocytes # (A) 0.8 k/uL (1.0-4.8); Lymphocytes % (A) 17 %; MCH 28.4 pg (25.0-35.0); MCHC 33.5 g/dL (31.0-37.0); MCV 84.7 fL (80.0-100.0); Mean Platelet Volume 6.4; Monocytes # (A) 0.3 k/uL (0-1.0); Monocytes % (A) 7 %; Neutrophils # (A) 3.5 k/uL (1.3-7.7); Neutrophils % (A) 72 %; Platelet Count 344 k/uL (150-450); Poikilocytosis Slight; RBC 3.47 m/uL (3.80-5.40); RDW 12.2 % (11.5-15.5); WBC 4.9 k/uL (3.8-10.6)
[2018-05-06 08:15] LABS: ALT 34 U/L (9-52); AST 35 U/L (14-36); Alkaline Phosphatase 106 U/L (38-126); Anion Gap 11 mmol/L; Blood Urea Nitrogen 6 mg/dL (7-17); Calcium 8.6 mg/dL (8.4-10.2); Carbon Dioxide 24 mmol/L (22-30); Chloride 105 mmol/L (98-107); Glucose 114 mg/dL (74-99); Sodium 140 mmol/L (137-145); Total Bilirubin 0.4 mg/dL (0.2-1.3); Total Protein 5.6 g/dL (6.3-8.2)
[2018-05-06 09:18] VITALS: BP 111/66; PULSE 73; RESP 16; TEMP 97.9
--- NOTE | 2018-05-06 11:56 | P.DS ---
Providers Date of admission: 05/02/18 18:00 Expected date of discharge: 05/06/18 Attending physician: Tania Mcclellan Consults: 05/02/18 17:09 Consult Physician Stat Consulting Provider: Alan Langley Consult Reason/Comments: Post op pain, fistula/Abscess Do you want consulting provider notified?: Yes 05/03/18 15:29 Consult Physician Routine Consulting Provider: Christos Alamo Consult Reason/Comments: possible pelvic infection Do you want consulting provider notified?: Yes Primary care physician: Rafaela Ott Hospital Course: Discharge diagnosis #1 febrile illness with mild leukocytosis, and pelvic pain with possible pelvic abscess noted on CAT scan. Continue moxifloxacin for 10 more days per infectious disease #2 underlying history of hypothyroidism maintained on Synthroid 137 g daily #3 underlying history of restless leg syndrome maintained on Requip 0.5 mg at bedtime #4 previous history of colon cancer #5 patient having diarrhea resolved #6 anemia likely iron deficiency anemia. Iron studies unfortunately did not get collected. We'll try to add them to this morning's labs. Anemia could also be related to patient's acute infection. She'll be sent home with ferrous sulfate 325 mg daily. We'll follow-up with her PCP within the next week to further follow up on results Hospital course Estella Silva is a 52-year-old woman who underwent vaginal hysterectomy 2 weeks ago. Over the last week, had lower abdominal pain with low-grade fevers. Over the last several days, she has had increasing nausea and vomiting along with the low-grade fevers and less regular bowel function. Patient denies any vaginal bleeding or abnormal discharge. Patient has a history of colon cancer with history of radiation therapy. His evaluated in emergency room, her temperature on presentation was 99, white blood count was 11.6 she was started on IV antibiotic Levaquin and Flagyl and was admitted to medical floor, consultation was placed for Dr. Veliz who performed hysterectomy on her [address] scan of the abdomen and pelvis was performed in ER due to significant tenderness, and revealed evidence of inflammation in the pelvis with possibility of fistula between the sigmoid colon and vaginal cuff with a 2.4 cm fluid collection at the uterine resection margin. Patient was seen by [facility] service and infectious disease during this hospitalization. She was treated for possible pelvic abscess due to the fact that she had low-grade fevers and mild leukocytosis and abnormality noted on CAT scan. She was placed on IV Invanz and given IV fluids. Patient's symptoms improved. She has been afebrile. White count has normalized. Patient when cleared by consulting physicians for discharge home. She is tolerating diet. As stated above infectious recommended moxifloxacin for 10 days. I performed an examination of the patient and discussed their management with the physician Machine Spreader. I have reviewed the Physician Machine Spreader's notes and agree with the documented findings and plan of care Patient Condition at Discharge: Stable Plan - Discharge Summary Discharge Rx Participant: Yes New Discharge Prescriptions: New Moxifloxacin HCl 400 mg PO DAILY #10 tab Continue Levothyroxine Sodium [Synthroid] 137 mcg PO DAILY Gabapentin [Neurontin] 800 mg PO TID rOPINIRole HCL 0.5 mg PO HS Discontinued Nitrofurantoin Monohyd/M-Cryst [Macrobid] 100 mg PO BID Discharge Medication List Gabapentin [Neurontin] 800 mg PO TID 02/10/18 [History] Levothyroxine Sodium [Synthroid] 137 mcg PO DAILY 02/10/18 [History] rOPINIRole HCL 0.5 mg PO HS 05/02/18 [History] Moxifloxacin HCl 400 mg PO DAILY #10 tab 05/04/18 [Rx] Follow up Appointment(s)/Referral(s): Rafaela Ott DO [Primary Care Provider] - 1 Week Alan Langley MD [STAFF PHYSICIAN] - 1 Week Activity/Diet/Wound Care/Special Instructions: Diet: regular Activity: as tolerated Discharge Disposition: HOME SELF-CARE
[2018-05-06 18:31] LABS: Iron Saturation 16.85 (12.00-45.00)
== END 2018-05-06 12:50 | disposition home or self-care (01) | DRG 862 ==
LOC: EC 13:13 → 5MS5E 18:00
PROVIDERS: ADMIT Internal Medicine; ATTEND Internal Medicine
DX: T81.4XXA Infection following a procedure, initial encounter (principal); K65.1 Peritoneal abscess; K56.7 Ileus, unspecified; J98.11 Atelectasis; D50.9 Iron deficiency anemia, unspecified; E03.9 Hypothyroidism, unspecified; E86.0 Dehydration; G25.81 Restless legs syndrome; K21.9 Gastro-esophageal reflux disease without esophagitis; M06.9 Rheumatoid arthritis, unspecified; F32.9 Major depressive disorder, single episode, unspecified; G62.9 Polyneuropathy, unspecified; R19.7 Diarrhea, unspecified; E66.9 Obesity, unspecified; Z68.33 Body mass index [BMI] 33.0-33.9, adult; Z92.3 Personal history of irradiation; Z85.038 Personal history of other malignant neoplasm of large intestine; Z88.0 Allergy status to penicillin; Z79.899 Other long term (current) drug therapy; Z79.890 Hormone replacement therapy; Z90.710 Acquired absence of both cervix and uterus; Z86.718 Personal history of other venous thrombosis and embolism; Z98.51 Tubal ligation status; Z87.440 Personal history of urinary (tract) infections
CPT/HCPCS: 36415; 74177; 80053; 81001; 82728; 83540; 83550; 83605; 85025; 85610; 85730; 87040; 87086; 96365; 96367; 96375; 99285

== ENCOUNTER → 2018-09-27 | Outpatient (CLI) | payer OTHER ==
--- NOTE | 2018-09-27 17:55 | MR ---
MRI CERVICAL SPINE: CLINICAL HISTORY: Complex cervical osteophyte per order. Headache with neck pain into shoulders and a hayden for one year causing pain or weakness to fingers per patient. TECHNIQUE: Multiplanar, multisequence imaging of the cervical spine is performed without IV contrast. COMPARISON: None. FINDINGS: Sagittal images of the cervical spine show the craniocervical junction to appear within nor mal limits. The cervical and upper thoracic spinal cord is normal in course, caliber, and signal. V ertebral alignment is anatomic. The vertebral body heights are normal. Mild to moderate disc space narrowing C5-C6 and C6-C7 level is present. Posterior disc herniations are seen effacing anterior the pedro sac at C4-C5 and C7-T1 level and to greater degree at C5-C6 and C6-C7 level on sagittal images. T here is heterogeneous endplate changes anteriorly C6-C7 level with mild to moderate spurring. Axial images show the C2-C3 level to appear within normal limits. Axial images at C3-C4 level shows central disc protrusion mildly effacing anterior thecal sac, bilate ral neural foramina are patent. Axial images at C4-C5 level show broad-based right paracentral disc protrusion effacing anterior thec al sac, bilateral neural foramina are patent. Axial images at C5-C6 level shows central disc protrusion effacing anterior thecal sac nearly up to v entral surface of spinal cord, in addition there is right foraminal disc protrusion component causing asymmetric moderate to severe right-sided neural foraminal narrowing. Left-sided foraminal disc sanjay iation causes mild to moderate neural foraminal narrowing. Axial images at C6-C7 level show broad-based left paracentral disc protrusion effacing anterior theca l sac, there foraminal disc protrusion component causing moderate bilateral neural foraminal narrowin g with some marginal spurring also identified. Axial images at C7-T1 level shows central disc protrusion mildly effacing anterior thecal sac, bilate ral neural foramina are patent. There is 1.0 cm right thyroid nodule axial image 4 noted consider thyroid ultrasound to further evalu ate and characterize if this is not known finding. IMPRESSION: Multilevel degenerative changes in the cervical spine most prominent at C5-C6 and C6-C7 l evel as detailed above.
== END | disposition home or self-care (01) ==
LOC: RADMRIMAIN 14:28
PROVIDERS: ATTEND Family Medicine
DX: M99.71 Connective tissue and disc stenosis of intervertebral foramina of cervical region (principal); M50.21 Other cervical disc displacement, high cervical region; M47.812 Spondylosis without myelopathy or radiculopathy, cervical region
CPT/HCPCS: 72141

== ENCOUNTER → 2019-03-16 | Outpatient (CLI) | payer OTHER ==
--- NOTE | 2019-03-16 08:01 | MR ---
EXAMINATION TYPE: MR lumbar spine wo con DATE OF EXAM: 03/16/2019 COMPARISON: CT abdomen and pelvis May 02, 2018 HISTORY: chronic lumbago per order. Low back pain for 2 years causing pain into both thighs and calfs per patient. TECHNIQUE: Multiplanar, multisequence imaging of the lumbar spine is performed without IV contrast. FINDINGS: Sagittal images of the lumbar spine show vertebral body heights and alignment to appear sat isfactory. Multilevel disc desiccation is seen but disc space heights are fairly well-maintained. No large posterior disc herniations are seen on sagittal images. The conus medullaris is normal in posi tion and signal ending mid L1 level. The bone marrow signal intensity is overall heterogeneous. Axial images at the T12-L1 level show mild broad disc bulge minimally effacing anterior thecal sac. Axial images at L1-L2 level are within normal limits. Axial images at the L2-L3 level show mild broad disc bulge minimally effacing anterior thecal sac. Axial images at the L3-L4 level show broad-based right paracentral disc protrusion minimally effacing anterolateral thecal sac. Axial images at the L4-L5 level show mild broad disc bulge with right paracentral disc protrusion com ponent on axial image 8 effacing anterior thecal sac, bilateral neural foramina are patent. Axial images at L5-S1 level show mild facet degenerative changes bilaterally. There is posterior incr eased signal consistent with annular tear as there is central disc protrusion but spinal canal is pre served. Bilateral neural foramina are patent. No suspicious incidental retroperitoneal findings are seen. IMPRESSION: Some mild multilevel degenerative changes in lumbar spine as detailed above. No suspiciou s large herniation or exiting nerve encroachment noted.
== END ==
LOC: RADMRIMAIN 06:16
PROVIDERS: ATTEND Family Medicine
DX: M51.26 Other intervertebral disc displacement, lumbar region (principal); M51.25 Other intervertebral disc displacement, thoracolumbar region; M51.27 Other intervertebral disc displacement, lumbosacral region; M47.817 Spondylosis without myelopathy or radiculopathy, lumbosacral region; M47.816 Spondylosis without myelopathy or radiculopathy, lumbar region
CPT/HCPCS: 72148

== ENCOUNTER → 2019-06-10 | Outpatient (CLI) | payer OTHER ==
[2019-06-10 10:48] LABS: HCT 37.3 % (34.0-46.0); HGB 12.5 gm/dL (11.4-16.0); RBC 4.26 m/uL (3.80-5.40); WBC 6.9 k/uL (3.8-10.6)
[2019-06-10 10:49] LABS: MCH 29.4 pg (25.0-35.0); MCHC 33.6 g/dL (31.0-37.0); MCV 87.5 fL (80.0-100.0); Mean Platelet Volume 6.1; Platelet Count 274 k/uL (150-450); RDW 12.6 % (11.5-15.5)
[2019-06-10 18:04] LABS: African American GFR (CKD) 75.5 (60.0-200.0); Albumin 4.3 g/dL (3.80-4.90); Albumin/Globulin Ratio 1.95 (1.60-3.17); Anion Gap 7.8 mmol/L (4.00-12.00); Calcium 9.5 mg/dL (8.7-10.3); Carbon Dioxide 23.2 mmol/L (21.6-31.8); Globulin 2.2 g/dL (1.6-3.3); Potassium 4.3 mmol/L (3.5-5.5); Total Bilirubin 0.5 mg/dL (0.3-1.2); Total Protein 6.5 g/dL (6.2-8.2)
== END | disposition home or self-care (01) ==
LOC: LABWHC1 09:49
PROVIDERS: ATTEND Internal Medicine Endocrinology, Diabetes & Metabolism
DX: E03.8 Other specified hypothyroidism (principal); R53.83 Other fatigue
CPT/HCPCS: 36415; 80053; 82024; 82533; 82607; 84146; 84443; 85027

== ENCOUNTER → 2019-07-09 | Outpatient (CLI) | payer OTHER ==
--- NOTE | 2019-07-09 09:11 | CT ---
EXAMINATION TYPE: CT abdomen pelvis w con DATE OF EXAM: 07/09/2019 COMPARISON: 05/02/2018 HISTORY: loss of appetite, mid abd pain, history of colon CA CT DLP: 1420.7 mGycm CONTRAST: CT scan of the abdomen and pelvis is performed with Oral Contrast and with IV Contrast, patient injec ela with 100 mL of Isovue 300. FINDINGS: LUNG BASES-: No visible nodule. No infiltrate. LIVER/GB: No calcified gallstones. No space occupying hepatic lesion. Biliary tree is of normal ca liber. PANCREAS: No inflammation. No distinct mass. SPLEEN: No splenic enlargement. No lesion seen. ADRENALS: No nodule. No thickening. KIDNEYS/BLADDER: No hydronephrosis. No nephrolithiasis. No distinct renal mass. Urinary bladder g rossly unremarkable. BOWEL: Partial colectomy changes noted. Normal bowel caliber. No inflammation. GENITAL ORGANS: Right ovarian cyst measures 3 cm. Hysterectomy changes noted. Left ovarian cyst keyshawn ures 2.4 cm. LYMPH NODES: No greater than 1cm abdominal or pelvic lymph nodes are appreciated. AORTA: No significant abnormality. OSSEOUS STRUCTURES: No significant abnormality is seen. OTHER: No significant additional abnormality is seen. IMPRESSION: 1. No significant abnormality to account for the patient's symptoms.
== END | disposition home or self-care (01) ==
LOC: RADCTMAIN 06:54
PROVIDERS: ATTEND Family Medicine
DX: R10.84 Generalized abdominal pain (principal)
CPT/HCPCS: 74177; Q9967

== ENCOUNTER → 2019-07-20 | Outpatient (CLI) | payer OTHER | END | disposition home or self-care (01) | LOC: LABWHC1 10:54 | PROVIDERS: ATTEND Internal Medicine Endocrinology, Diabetes & Metabolism | DX: E03.8 Other specified hypothyroidism (principal) | CPT/HCPCS: 36415; 84443 ==

== ENCOUNTER → 2019-08-18 | Outpatient (CLI) | payer OTHER ==
[2019-08-18 11:57] VITALS: BP 147/84; PULSE 83; RESP 16
--- NOTE | 2019-08-20 14:06 | P.PAINCN ---
History of Present Illness - Reason for Consult Consult date: 08/18/19 - History of Present Illness SUBJECTIVE: Patient is a 54-year-old female who was referred by Dr. Weeks who [facility] evaluation of bilateral lower back pain, right equal to left, which has been present for about 1.5 years, but has gotten significantly worse over the last 3 months. She denies any inciting events. The pain radiates to bilateral thighspatient states there is a "numb-like feeling on the inside of her thighs". Her low back pain accounts for 90% of her pain complaint. Pain is worse with twisting, standing, bending and better with a heating pad. Pain is rated as 4/10 at best to 9/10 at worst. She has attempted some home exercises without any benefit. She does report bilateral lower extremity neuropathy and has numbness from her knees to her toesshe attri butes this to chemotherapy from colon cancer. She is currently using when necessary ibuprofen, Neurontin, Zanaflex which was recently switched to tizanidine. The pain is significantly affecting her quality of life. Patient denies chest pain, difficulty with bowel or bladder control, unintentional weight loss, gait difficulty, fevers, chills, or night sweats, arm or leg weakness,numbness or tingling, pain being worse at night, trauma and history of drug abuse, thoughts of suicide or homicide. She does endorse occasional palpitations. Prior Pain Procedures: None Physical Therapy/Home Exercise: No Formal physical therapy, has done stretching at home with no significant benefit Imaging: MRI lumbar spine done at [facility] shows multilevel mild degenerative disc changes particularly at L3 to 4, L4-5, L5-S1 with mild facet arthropathy. Annular posterior disc tear is noted at L5-S1 OBJECTIVE: Vitals :Reviewed in EMR PHYSICAL EXAMINATION: GENERAL: Well appearing, in no acute distress, obese PSYCH: Mood and affect is appropriate. Awake, alert, and oriented SKIN: Skin color, texture, turgor normal, no rashes or lesions HEENT: Normocephalic, atraumatic. EOM intact CV: No pedal edema RESP: Respirations are unlabored GI: Abdomen nondistended , obese MUSCULOSKELETAL: Bilateral lower extremity strength is normal and symmetric. No atrophy or tone abnormalities are noted. Back: Straight leg raising is negative for radicular pain. Tenderness to palpation over the lumbar spine and paraspinous muscles. Positive for pain with facet loading and back extension/rotation bilaterally. Buttocks: No pain to palpation over the PSIS, sacroiliac joint maneuvers are negative for pain. Extremities: Peripheral joint ROM is full and pain free without obvious instability or laxity in all four extremities. No edema or skin discolorations noted. Gait: Gait is normal NEUR: Bilateral upper and lower extremity coordination and muscle stretch reflexes are physiologic and symmetric.loss of sensation noted to light touch in bilateral lower extremities, below the knees on both sides. Cranial nerves are grossly intact. ASSESSMENT: Lumbar spondylosis Lumbar degenerative disc disease Obesity PLAN: 1) procedures: We'll schedule bilateral lumbar medial branch blocks at L3, L4, L5 2. Significant benefit from this, would likely proceed with radiofrequency ablation. If no significant benefit from this, patient might benefit from bilateral L5-S1 transforaminal epidural steroid injections to address annular disc tear. 2) medications: Continue medications prescribed by primary care physician. Prescription written for Mobic 7.5 mg twice a day. Patient was instructed to stop all other NSAIDS while on this medication. 3) The patient was counseled regarding the importance of physical therapy and home exercise program as well as weight control as it pertains to chronic pain. In the future, once pain is under better control, patient would likely benefit from formal physical therapy evaluation. 4) RTC for above-mentioned procedure The above plan and management options were discussed at length with patient. Patient is in agreement with the above and verbalized understanding. Past Medical History Past Medical History: Cancer, Deep Vein Thrombosis (DVT), GERD/Reflux, Musculoskeletal Disorder, Rheumatoid Arthritis (RA), Thyroid Disorder Additional Past Medical History / Comment(s): hx colon cancer 9 yrs. ago,and chemo completed, BLOOD CLOT IN ABDOMEN AFTER BOWEL SURG, NEUROPATHY forrest legs and feet, restless leg, palpitations, elevated liver enzymes- monitoring History of Any Multi-Drug Resistant Organisms: None Reported Past Surgical History: Bladder Surgery, Bowel Resection, Hysterectomy, Tonsillectomy, Tubal Ligation Additional Past Surgical History / Comment(s): cervical fusion C-5,6,7 Past Anesthesia/Blood Transfusion Reactions: Family History of Problems w/ Anesthesia, Motion Sickness Additional Past Anesthesia/Blood Transfusion Reaction / Comm: MOTHER HAS PONV Smoking Status: Never smoker - Past Family History Father Family Medical History: Cancer Medications and Allergies Home Medications Medication Instructions Recorded Confirmed Type Gabapentin [Neurontin] 800 mg PO TID 02/10/18 08/18/19 History Levothyroxine Sodium [Synthroid] 175 mcg PO DAILY 02/10/18 08/18/19 History Ibuprofen [Motrin] 800 mg PO Q6H PRN 08/14/19 08/18/19 History Omeprazole 20 mg PO DAILY 08/14/19 08/18/19 History Pramipexole [Mirapex] 1 mg PO HS 08/14/19 08/18/19 History Prednisone Dose Pack 1 tab PO DAILY 08/14/19 08/18/19 History tiZANidine [Zanaflex] 1 tab PO DAILY 08/18/19 08/18/19 History Allergies Allergy/AdvReac Type Severity Reaction Status Date / Time Penicillins Allergy Severe Swelling Verified 08/14/19 10:36 OF THROAT PQRS Measure Charge Sheet Measure #130: Documentation of Current Meds in Medical Chart: Patient's medications documented in chart Measure #226: Tobacco Use: Screen & Cessation Intervention: Pt not a tobacco user Measure #111: Pneumonia Vaccination: Pneumococcal vaccine NOT administered or previously given Measure #47: Advance Care Plan: Advance care planning discussed & documented, pt chose/unable to give Measure #412: Opioid Treatment Agreement: No documentation of signed opioid treatment agreement Measure #317: Preventitive Care & Scrn High Bld Press & F/U: Pre-hypertensive or hypertensive BP documented, pt will f/u with PCP Measure #128: Body Mass Index (BMI) Screening & Follow-up: BMI documented ABOVE normal parameters - f/u documented Measure #131: Pain Assessment & Follow-up: Pain positive & plan documented, F ollow-up scheduled Measure #431: Unhealthy Alcohol Use Preventative Care & Scrn: Patient not identified as an unhealthy alcohol user PQRS Narrative: Smoking Status Never smoker Blood Pressure 147/84 Pain Intensity [Lower Back] 8 Scale Used Numeric (1 - 10) Hx Alcohol Use (MH) Yes Home Medications: Ambulatory Orders Gabapentin [Neurontin] 800 mg PO TID 02/10/18 Levothyroxine Sodium [Synthroid] 175 mcg PO DAILY 02/10/18 Ibuprofen [Motrin] 800 mg PO Q6H PRN 08/14/19 Omeprazole 20 mg PO DAILY 08/14/19 Pramipexole [Mirapex] 1 mg PO HS 08/14/19 Prednisone Dose Pack 1 tab PO DAILY 08/14/19 tiZANidine [Zanaflex] 1 tab PO DAILY 08/18/19
== END | disposition home or self-care (01) ==
LOC: PNWHC3 11:42
PROVIDERS: ATTEND Anesthesiology
DX: M51.36 Other intervertebral disc degeneration, lumbar region (principal); M47.816 Spondylosis without myelopathy or radiculopathy, lumbar region; E66.9 Obesity, unspecified; M06.9 Rheumatoid arthritis, unspecified; G57.93 Unspecified mononeuropathy of bilateral lower limbs; Z68.36 Body mass index [BMI] 36.0-36.9, adult; Z79.890 Hormone replacement therapy; Z79.1 Long term (current) use of non-steroidal anti-inflammatories (NSAID); Z79.52 Long term (current) use of systemic steroids; Z79.899 Other long term (current) drug therapy; Z88.0 Allergy status to penicillin
CPT/HCPCS: 99211

== ENCOUNTER 2019-08-26 07:40 | Day surgery (SDC) | payer OTHER ==
[2019-08-24 14:49] VITALS: BMI 36.3
[~2019-08-26 07:40] MED LIST changes: -CLINDAMYCIN 900 MG in DEXTROSE 5% IN WATER 50 ML IVPB ONE; -GENTAMICIN 360 MG in SODIUM CHLORIDE 0.9% 100 ML IVPB ONE; -HYDROmorphone 0.5 MG/0.5 ML SYRINGE IVP PRN; +LACTATED RINGERS 1,000 ML IV SCH; -ONDANSETRON 4 MG/2 ML VIAL IVP PRN; -fentaNYL (PF) 50 MCG/ML 2 ML AMP IV PRN
[2019-08-26 07:55] VITALS: RESP 18; TEMP 97.8
[2019-08-26] MEDS ORDERED: LACTATED RINGERS 1,000 ML IV ONE (07:55)
[2019-08-26] MEDS ORDERED: LIDOCAINE 1% 20 ML VIAL (10MG/ML) FOR IV START INTRADERMA ONE (08:02)
--- NOTE | 2019-08-26 09:06 | P.PCN ---
Date of Procedure: 08/26/19 Procedure(s) Performed: PREOPERATIVE DIAGNOSIS : 1- Lumbar spondylosis with Facet Arthropathy without myelopathy . 2- Lumber degenerative disc disease POSTOPERATIVE DIAGNOSIS: 1- Lumbar spondylosis with Facet Arthropathy without myelopathy . 2- Lumber degenerative disc disease PROCEDURE: Diagnostic bilateral L3 , L4 , and L5 medial branch block under fluoroscopy guidance(fluoroscopy images available in the radiology Department ) ( The target area facet joints at L4- 5 ,and L5- S1 ) ANESTHESIA: Local with Ropivacain 0.5 % 6 ml , moderate sedation with intravenous Versed 4 mg and Fentanyl 100 mcg. EBL: Minimal COMPLICATION: None. IV FLUIDS: 100 mL of normal saline. PROCEDURE INDICATION: Chronic low back pain secondary to Facet arthropathy unresponsive to conservative treatment. PROCEDURE DESCRIPTION: the patient was seen and identified in the preop holding area , risks and benefits and possible complications of the procedure and alternative were discussed with the patient, and the patient agreed to proceed with the procedure and signed the consent IV was started and vital signs monitored during the procedure and fluoroscopy was used to maximize the benefit and accuracy of the needle placement, and sedation was given to decrease patient anxiety, patient was taken to the procedure room and placed in prone position vital signs monitored in the back prepped with chlorhexidine X3 then under strict sterile technique using a right oblique fluoroscopy ,the junction of the transverse process and the superior articulating process of the right L3 , L4, and L5 vertebra which corresponding to the fluoroscopy image of the eye of the Nathaniel dog on the block side for the medial branches and subsequently , after local infiltration of skin and subcu tissuies with Ropivacaine 0.5 % , one mL at each level ,then 22-gauge Quincke-type needles , 3 needle was used , each one of them placed at the junction of the base of the transverse process and the superior articular process at the appropriate level, and the needle was advanced until the periosteum contacted, needle placement confirmed with AP oblique and lateral view and after appropriate needle placement confirmed, and after negat marco aspiration for heme and CSF and there was no paresthesia 1-1/2 mL of Ropivacaine 0.5% mixed with 20 mg Depo-Medrol , then half mL injected at each level after negative aspiration the needle subsequently removed and the same procedure repeated for the left side at left side at L3, L4 and L5 levels. At the end of the procedure and the needles removed and a bandage applied after the skin was cleaned the cleaning solution patient taken to recovery room in stable condition and monitors in the recovery room for 20-30 minutes and discharged home in stable condition after discharge criteria met and patient will follow up with the pain clinic in 2-4 weeks
[2019-08-26] MEDS ORDERED: IV FLUID CONTINUATION 1,000 ML IV ONE (09:14)
--- NOTE | 2019-08-26 09:35 | FL ---
Fluoroscopy INDICATION: Pain FINDINGS: Fluoroscopy time: 12 seconds. Images obtained: 4. IMPRESSIONS: 1. Documentation of fluoroscopy.
[2019-08-26 10:05] VITALS: BP 110/78; PULSE 72
== END 2019-08-26 09:50 | disposition home or self-care (01) ==
LOC: ORPAIN 07:40
PROVIDERS: ATTEND Specialist
DX: G89.29 Other chronic pain (principal); M47.816 Spondylosis without myelopathy or radiculopathy, lumbar region; M51.36 Other intervertebral disc degeneration, lumbar region; Z88.0 Allergy status to penicillin; Z90.710 Acquired absence of both cervix and uterus
CPT/HCPCS: 64493; 64494; 64495; J2250; J1030; J3010; 99152

== ENCOUNTER → 2019-08-28 | Outpatient (CLI) | payer OTHER ==
--- NOTE | 2019-08-28 08:08 | US ---
EXAMINATION TYPE: US abdomen limited DATE OF EXAM: 08/28/2019 COMPARISON: CT July 09, 2019 CLINICAL HISTORY: C18.9 CA of colon. Elevated liver enzymes, occasional right flank pain, loss of marc etite and dizziness x couple months EXAM MEASUREMENTS: Liver Length: 14.6 cm Gallbladder Wall: 0.2 cm CBD: 0.4 cm Right Kidney: 10.3 x 5.5 x 5.4 cm Pancreas: visualized portions wnl, limited by overlying midline bowel gas Liver: course echotexture Gallbladder: wnl Evidence for sonographic Napier's sign: no CBD: visualized portions wnl, limited by overlying bowel gas Right Kidney: wnl Visualized pancreas are within normal limits. Visualized liver slightly heterogeneous without worriso me focal mass or ductal dilatation. Gallbladder shows no shadowing mobile gallstones. No right-sided hydronephrosis is evident IMPRESSION: No focal intrahepatic mass or intrahepatic ductal dilatation.
[2019-08-28 08:18] LABS: African American GFR (CKD) >90 (>60 ml/min/1.73 sqM); Blood Urea Nitrogen 15 mg/dL (7-17)
--- NOTE | 2019-08-28 09:03 | CT ---
EXAMINATION TYPE: CT chest w con DATE OF EXAM: 08/28/2019 COMPARISON: None HISTORY: Cancer of colon CT DLP: 408.50 mGycm Automated exposure control for dose reduction was used. CONTRAST: CT scan of the chest is performed with IV Contrast, patient injected with 100 ml mL of Isovue 300. FINDINGS: LUNGS: The lungs are grossly clear, there is no concerning parenchymal mass or nodule identified. T here is no pleural effusion or pneumothorax seen. The tracheobronchial tree is patent. MEDIASTINUM: There are no greater than 1 cm hilar or mediastinal lymph nodes. No pericardial effusi on is seen. Thoracic aorta is of normal caliber. The heart is not enlarged. UPPER ABDOMEN: No significant abnormality appreciated. OTHER: No additional significant abnormality is seen. IMPRESSION: No evidence for metastatic disease.
== END | disposition home or self-care (01) ==
LOC: RADUSWWP 06:48
PROVIDERS: ATTEND Internal Medicine Hematology & Oncology
DX: C18.9 Malignant neoplasm of colon, unspecified (principal); Z88.0 Allergy status to penicillin
CPT/HCPCS: 82565; 84520; 76705; 71260; Q9967

== ENCOUNTER 2019-09-08 06:00 | Day surgery (SDC) | payer OTHER ==
[2019-09-04 14:57] VITALS: BMI 38.7
[2019-09-08] MEDS ORDERED: LACTATED RINGERS 1,000 ML IV SCH (06:04)
[2019-09-08 06:14] VITALS: TEMP 97.8
[2019-09-08] MEDS ORDERED: LIDOCAINE 1% 20 ML VIAL (10MG/ML) FOR IV START INTRADERMA ONE (06:14)
[2019-09-08] MEDS ORDERED: LACTATED RINGERS 1,000 ML IV ONE (06:14)
--- NOTE | 2019-09-08 07:21 | P.PCN ---
Date of Procedure: 09/08/19 Procedure(s) Performed: PREOPERATIVE DIAGNOSIS : 1- Lumbar spondylosis with Facet Arthropathy without myelopathy . 2- Lumber degenerative disc disease POSTOPERATIVE DIAGNOSIS: 1- Lumbar spondylosis with Facet Arthropathy without myelopathy . 2- Lumber degenerative disc disease PROCEDURE: Diagnostic bilateral L3 , L4 , and L5 medial branch block under fluoroscopy guidance(fluoroscopy images available in the radiology Department ) #2nd ( The target area facet joints at L4- 5 ,and L5- S1 ) ANESTHESIA: Local with Ropivacain 0.5 % 6 ml , moderate sedation with intravenous Versed 3 mg and Fentanyl 100 mcg. EBL: Minimal COMPLICATION: None. IV FLUIDS: 100 mL of normal saline. PROCEDURE INDICATION: Chronic low back pain secondary to Facet arthropathy unresponsive to conservative treatment. PROCEDURE DESCRIPTION: the patient was seen and identified in the preop holding area , risks and benefits and possible complications of the procedure and alternative were discussed with the patient, and the patient agreed to proceed with the procedure and signed the consent IV was started and vital signs monitored during the procedure and fluoroscopy was used to maximize the benefit and accuracy of the needle placement, and sedation was given to decrease patient anxiety, patient was taken to the procedure room and placed in prone position vital signs monitored in the back prepped with chlorhexidine X3 then under strict sterile technique using a right oblique fluoroscopy ,the junction of the transverse process and the superior articulating process of the right L3 , L4, and L5 vertebra which corresponding to the fluoroscopy image of the eye of the Nathaniel dog on the block side for the medial branches and subsequently , after local infiltration of skin and subcu tissuies with Ropivacaine 0.5 % , one mL at each level ,then 22-gauge Quincke-type needles , 3 needle was used , each one of them placed at the junction of the base of the transverse process and the superior articular process at the appropriate level, and the needle was advanced until the periosteum contacted, needle placement confirmed with AP oblique and lateral view and after appropriate needle placement confirmed, and after neg ative aspiration for heme and CSF and there was no paresthesia 1-1/2 mL of Ropivacaine 0.5% mixed with 20 mg Depo-Medrol , then half mL injected at each level after negative aspiration the needle subsequently removed and the same procedure repeated for the left side at left side at L3, L4 and L5 levels. At the end of the procedure and the needles removed and a bandage applied after the skin was cleaned the cleaning solution patient taken to recovery room in stable condition and monitors in the recovery room for 20-30 minutes and discharged home in stable condition after discharge criteria met and patient will follow up with the pain clinic in 2-4 weeks Note= recommend the use 5 inches needle for the RFA, if we need to proceed with RFA
[2019-09-08 07:27] VITALS: RESP 16
[2019-09-08] MEDS ORDERED: IV FLUID CONTINUATION 1,000 ML IV ONE (07:29)
[2019-09-08 07:41] VITALS: BP 109/67; PULSE 76
--- NOTE | 2019-09-08 08:10 | FL ---
EXAMINATION TYPE: FL guided pain mgmt statistic DATE OF EXAM: 09/08/2019 CLINICAL HISTORY: Low back pain. TECHNIQUE: Fluoroscopy. COMPARISON: None. FINDINGS: Fluoroscopic guidance was provided during pain relief procedure performed by Dr. Recinos . A total of 13 seconds of fluoroscopic time was utilized during the procedure and four spot images are acquired. Images acquired shows needle localization at several levels in the lower lumbar spine. IMPRESSION: As Above.
== END 2019-09-08 07:54 | disposition home or self-care (01) ==
LOC: ORPAIN 06:00
PROVIDERS: ATTEND Specialist
DX: M47.816 Spondylosis without myelopathy or radiculopathy, lumbar region (principal); G89.29 Other chronic pain; M51.36 Other intervertebral disc degeneration, lumbar region
CPT/HCPCS: 64493; 64494; 64495; J2250; J1030; J3010; 99152

== ENCOUNTER → 2019-09-11 | Outpatient (CLI) | payer OTHER | END | disposition home or self-care (01) | LOC: LABWHC1 11:53 | PROVIDERS: ATTEND Internal Medicine Endocrinology, Diabetes & Metabolism | DX: E03.8 Other specified hypothyroidism (principal); R53.83 Other fatigue | CPT/HCPCS: 36415; 82024; 82533; 84443 ==

== ENCOUNTER → 2019-09-15 | Outpatient (CLI) | payer OTHER ==
--- NOTE | 2019-09-22 09:46 | MM ---
Reason for exam: screening (asymptomatic). Last mammogram was performed 5 years and 7 months ago. History: Patient is postmenopausal and has history of colon cancer at age 43. Family history of breast cancer in grandmother at age 72. Took hormonal contraceptives for 20 years. Physical Findings: A clinical breast exam by your physician is recommended on an annual basis and results should be correlated with mammographic findings. MG Screening Mammo w CAD Bilateral CC and MLO view(s) were taken. Prior study comparison: February 24, 2014, mammogram, performed at [facility]. January 05, 2011, mammogram, performed at [facility]. There are scattered fibroglandular densities. No suspicious abnormality. No significant changes when compared with prior studies. ASSESSMENT: Incomplete: need additional imaging evaluation, BI-RAD 0 RECOMMENDATION: Ultrasound of the left breast. (area of pain/palpable) [facility] will attempt to contact patient to return for ultrasound.
== END | disposition home or self-care (01) ==
LOC: RADMAMWWP 12:25
PROVIDERS: ATTEND Internal Medicine Hematology & Oncology
DX: Z12.31 Encounter for screening mammogram for malignant neoplasm of breast (principal)
CPT/HCPCS: 77067

== ENCOUNTER → 2019-09-24 | Outpatient (CLI) | payer OTHER ==
--- NOTE | 2019-09-24 09:19 | USB ---
Reason for exam: additional evaluation requested from abnormal screening. History: Patient is postmenopausal and has history of colon cancer at age 43. Family history of breast cancer in grandmother at age 72. Took hormonal contraceptives for 20 years. Physical Findings: Nurse Summary: patient feels lump and pain x 3 months left breast (nurse kp). US Breast Workup Limited LT Left limited breast ultrasound including focal area of concern, retroareolar and axilla demonstrates no cystic or solid lesion seen. These results were verbally communicated with the patient and result sheet given to the patient on 09/24/19. ASSESSMENT: Negative, BI-RAD 1 RECOMMENDATION: Return to routine screening mammogram schedule for both breasts. Manage patient on a clinical basis.
--- NOTE | 2019-09-24 14:38 | P.PAINPG ---
Subjective Progress Note Date: 09/24/19 This is a follow-up visit for this 54 years old female with a chronic history of severe low back pain she states lumbar spondylosis with lumbar facet arthropathy, Recently we have done diagnostic medial branch block lumbar area L3, L4, L5, bilaterally and she had excellent pain relief, on 2 different occasions, she got more than 70% improvement of her low back pain Objective - Exam Physical Examinations : -Constitutiona : Cooperative , not in acute distress . -HEENT : nech : supple , no Lymphadenopathy , normal thyroid size . : eyes : no ptosis , no icterus, no photophobia . - neurologic : Cranial nerve II to XII intact , no focal neurological deffecit . -psychatric : alert , oriented X 3 , appropriate affect , intact judgment and insight . -Lymphatic : no Lymphadenopathy . - musculoskeltal : Lumber spine moter stegnth lower extremities ,thigh and legs 5/5 Right side , 5/5 Left side deep tendon reflexes : normal Knee Jerk , normal ankle Jerk lumber facet Loading Test =positive Right , posiutive Left Range of motion of the lumbar spine Flexion 30 degrees, extension 10 degrees strait leg raising test = positive at 30 degree Fabere test= positive Right , and positive LT . Sever tenderness over the Sacroiliac joint on the Right , and Left sides Assessment and Plan Plan: Assessment and plan= chronic severe low back pain secondary to lumbar spondylosis with lumbar facet arthropathy, patient had good result after diagnostic medial branch block lumbar area 2 , she will be good candidate to have RFA of the medial branch lumbar area, and we will start with the right side first at L3/L4/L5 Time with Patient: Less than 30 PQRS Measure Charge Sheet Measure #130: Documentation of Current Meds in Medical Chart: Patient's medications documented in chart Measure #226: Tobacco Use: Screen & Cessation Intervention: Pt not a tobacco user Measure #111: Pneumonia Vaccination: Pneumococcal vaccine NOT administered or previously given Measure #47: Advance Care Plan: Advance care planning discussed & documented, pt chose/unable to give Measure #412: Opioid Treatment Agreement: No documentation of signed opioid treatment agreement Measure #408: Opioid Therapy Follow-up Evaluation: Patient had NO f/u eval minimum every 3 months during opioid therapy Measure #317: Preventitive Care & Scrn High Bld Press & F/U: Normal blood pressure, f/u not required Measure #128: Body Mass Index (BMI) Screening & Follow-up: BMI documented ABOVE normal parameters - f/u documented Measure #131: Pain Assessment & Follow-up: Pain positive & plan documented, Follow-up scheduled Measure #431: Unhealthy Alcohol Use Preventative Care & Scrn: Patient not identified as an unhealthy alcohol user PQRS Narrative: Smoking Status Never smoker Hx Alcohol Use (MH) Yes Home Medications: Ambulatory Orders Gabapentin [Neurontin] 800 mg PO TID 02/10/18 Levothyroxine Sodium [Synthroid] 175 mcg PO DAILY 02/10/18 Omeprazole 20 mg PO DAILY 08/14/19 Pramipexole [Mirapex] 1 mg PO HS 08/14/19 tiZANidine [Zanaflex] 4 mg PO DAILY 08/18/19 Mobic (Unknown Dose) 1 tab PO DAILY 09/04/19 Controlled Substance Measures - Controlled Substance Measures Is patient prescribed a controlled substance at discharge?: No
== END | disposition home or self-care (01) ==
LOC: RADUSWWP 07:37
PROVIDERS: ATTEND Internal Medicine Hematology & Oncology
DX: R92.8 Other abnormal and inconclusive findings on diagnostic imaging of breast (principal)

== ENCOUNTER → 2019-09-24 | Outpatient (CLI) | payer OTHER ==
[2019-09-24 13:19] VITALS: BP 118/77; PULSE 93; RESP 16
--- NOTE | 2019-10-06 11:46 | P.PAINPG ---
Subjective Progress Note Date: 09/24/19 This is a follow-up visit for this 54 years old female with a chronic history of severe low back pain she states lumbar spondylosis with lumbar facet arthropathy, Recently we have done diagnostic medial branch block lumbar area L3, L4, L5, bilaterally and she had excellent pain relief, on 2 different occasions, she got more than 70% improvement of her low back pain Objective - Exam Physical Examinations : -Constitutiona : Cooperative , not in acute distress . -HEENT : nech : supple , no Lymphadenopathy , normal thyroid size . : eyes : no ptosis , no icterus, no photophobia . - neurologic : Cranial nerve II to XII intact , no focal neurological deffecit . -psychatric : alert , oriented X 3 , appropriate affect , intact judgment and insight . -Lymphatic : no Lymphadenopathy . - musculoskeltal : Lumber spine moter stegnth lower extremities ,thigh and legs 5/5 Right side , 5/5 Left side deep tendon reflexes : normal Knee Jerk , normal ankle Jerk lumber facet Loading Test =positive Right , posiutive Left Range of motion of the lumbar spine Flexion 30 degrees, extension 10 degrees strait leg raising test = positive at 30 degree Fabere test= positive Right , and positive LT . Sever tenderness over the Sacroiliac joint on the Right , and Left sides Assessment and Plan Plan: Assessment and plan= chronic severe low back pain secondary to lumbar spondylosis with lumbar facet arthropathy, patient had good result after diagnostic medial branch block lumbar area 2 , she will be good candidate to have RFA of the medial branch lumbar area, and we will start with the right side first at L3/L4/L5 Time with Patient: Less than 30 PQRS Measure Charge Sheet Measure #130: Documentation of Current Meds in Medical Chart: Patient's medications documented in chart Measure #226: Tobacco Use: Screen & Cessation Intervention: Pt not a tobacco user Measure #111: Pneumonia Vaccination: Pneumococcal vaccine NOT administered or previously given Measure #47: Advance Care Plan: Advance care planning discussed & documented, pt chose/unable to give Measure #412: Opioid Treatment Agreement: No documentation of signed opioid treatment agreement Measure #408: Opioid Therapy Follow-up Evaluation: Patient had NO f/u eval minimum every 3 months during opioid therapy Measure #317: Preventitive Care & Scrn High Bld Press & F/U: Normal blood pressure, f/u not required Measure #128: Body Mass Index (BMI) Screening & Follow-up: BMI documented ABOVE normal parameters - f/u documented Measure #131: Pain Assessment & Follow-up: Pain positive & plan documented, Follow-up scheduled Measure #431: Unhealthy Alcohol Use Preventative Care & Scrn: Patient not identified as an unhealthy alcohol user PQRS Narrative: Smoking Status Never smoker Hx Alcohol Use (MH) Yes Home Medications: Ambulatory Orders Gabapentin [Neurontin] 800 mg PO TID 02/10/18 Levothyroxine Sodium [Synthroid] 175 mcg PO DAILY 02/10/18 Omeprazole 20 mg PO DAILY 08/14/19 Pramipexole [Mirapex] 1 mg PO HS 08/14/19 tiZANidine [Zanaflex] 4 mg PO DAILY 08/18/19 Hydrocortisone [Cortef] 5 mg PO PC-SUPPER 09/30/19 Hydrocortisone [Cortef] 10 mg PO DAILY 09/30/19 Meloxicam [Mobic] 7.5 mg PO DAILY 09/30/19 Controlled Substance Measures - Controlled Substance Measures Is patient prescribed a controlled substance at discharge?: No
== END | disposition home or self-care (01) ==
LOC: PNWHC3 12:16
PROVIDERS: ATTEND Specialist
DX: G89.29 Other chronic pain (principal); M47.816 Spondylosis without myelopathy or radiculopathy, lumbar region; M46.96 Unspecified inflammatory spondylopathy, lumbar region; Z79.890 Hormone replacement therapy; Z79.1 Long term (current) use of non-steroidal anti-inflammatories (NSAID); Z79.899 Other long term (current) drug therapy
CPT/HCPCS: 99211

== ENCOUNTER 2019-10-06 07:13 | Day surgery (SDC) | payer OTHER ==
[2019-09-30 14:43] VITALS: BMI 38.7
[2019-10-06 08:05] VITALS: RESP 18; TEMP 97.9
[2019-10-06] MEDS ORDERED: LIDOCAINE 1% 20 ML VIAL (10MG/ML) FOR IV START INTRADERMA ONE (08:19)
[2019-10-06 08:21] LABS: Glucose,Whole Blood 132 mg/dL (75-99)
--- NOTE | 2019-10-06 09:47 | P.PCN ---
Date of Procedure: 10/06/19 Procedure(s) Performed: PREOPERATIVE DIAGNOSIS: 1-Lumbar Spondylosis with Facet Arthropathy without myelopathy. 2- Lumber degenerative disc disease POSTOPERATIVE DIAGNOSIS: 1- Lumbar Spondylosis with Facet Arthropathy without myelopathy. 2- Lumber degenerative disc disease PROCEDURES : Right Radiofrequency thermocoagulation, L3 , L4 , and L5 medial branch, with fluoroscopic guidance (fluoroscopy images available in the radiology department) ( to denervate the facet joint at L4-5 ,and L5-S1 levels ) ANESTHESIA: Moderate sedation with intravenous versed 2 mg and fentaneyl 100 mcg, and local infiltration with Ropivacaine 0.5 % . EBL: Minimal PROCEDURE INDICATION: The patient with low back pain secondary to lumbar facet arthropathy who had more than 50% relief of her pain with previous diagnostic lumbar medial branch block with bupivacaine. PROCEDURE DESCRIPTION / TECHNIQUE: The patient was seen and identified in the preoperative area. Risks, benefits, complications, including but not limited to risk of infection ,bleeding , allergic reactions to the medications and no complete pain releife , and alternatives were discussed with the patient, the patient agreed to proceed with the procedure and signed the consent. IV was started. Vital signs remained stable throughout the procedure. Patient was taken to the OR and time out was completed. The patient was placed in the prone position on the procedure table. The lumber area was prepped and draped in the usual sterile fashion. . Vital signs were closely monitored during the procedure .IV sedation was used during the procedure to decrease patients anxiety. Using AP and then oblique fluoroscopy, the ``eye of the Nathaniel dog corresponding to the connection between the superior and transverse articular processes of right L3, L4, and L5 were identified, marked, and localized with 1% lidocaine. Subsequently, a 18 [id number] radiofrequency cannula with a 10- mm active tip was advanced guided by fluoroscopy to each of the``eyes of the Nathaniel dog at right L3, L4, and L5. Each site then underwent sensory testing at 50 Hz and 0 to 1 volt and motor testing at 2.5 Hz and 0 to 3 volt with local stimulation, but no radicular symptoms down the legs. Thereafter the right L3, L4 , and L5 sites underwent radiofrequency thermocoagulation at 80 degrees celsius for 90 seconds after injecting 0.5 ml of PF Ropivacaine 1ml, then after the thermocoagulation done , 1 ml of the block solution containing Depo-Medrol 40 mg and 3 ml of Ropivacaine 0.5% was injected at the right L3 , L4 , and L5 , levels after negative aspiration of CSF and blood and with no paresthesias. Cannulas were retracted while injecting lidocaine 1% until the needle is out. At the end of the procedure, the skin was cleansed and bandages were applied. COMPLICATIONS: No acute complications. DISPOSITION / PLANS: The patient was placed in a supine position and transferred to the recovery area in a stable condition for observation and was discharged from the recovery room after meeting discharge criteria. Home discharge instructions given to the patient by the staff. The patient was reexamined prior to discharge. The patient will schedule a follow up in the clinic in 2-4 weeks.
[2019-10-06] MEDS ORDERED: LACTATED RINGERS 1,000 ML IV ONE (09:56)
--- NOTE | 2019-10-06 10:01 | FL ---
EXAMINATION TYPE: FL guided pain mgmt statistic DATE OF EXAM: 10/06/2019 CLINICAL HISTORY: Low back pain. TECHNIQUE: Fluoroscopy. COMPARISON: None. FINDINGS: Fluoroscopic guidance was provided during pain relief procedure performed by Dr. Recinos . A total of 9 seconds of fluoroscopic time was utilized during the procedure and 3 spot images are acquired. Images acquired shows needle localization at several levels near the lumbosacral junction . IMPRESSION: As Above.
[2019-10-06 10:19] VITALS: BP 113/59; PULSE 67
== END 2019-10-06 10:34 | disposition home or self-care (01) ==
LOC: ORPAIN 07:13
PROVIDERS: ATTEND Specialist
DX: M47.816 Spondylosis without myelopathy or radiculopathy, lumbar region (principal); M51.36 Other intervertebral disc degeneration, lumbar region; E07.9 Disorder of thyroid, unspecified; Z88.0 Allergy status to penicillin
CPT/HCPCS: 64635; 64636; J2250; J1030; J3010; 99152

== ENCOUNTER 2019-10-20 07:24 | Day surgery (SDC) | payer OTHER ==
[2019-10-19 09:54] VITALS: BMI 38.7
[2019-10-20 07:52] VITALS: TEMP 97
[2019-10-20 07:52] LABS: Glucose,Whole Blood 101 mg/dL (75-99)
[2019-10-20] MEDS ORDERED: LIDOCAINE 1% 20 ML VIAL (10MG/ML) FOR IV START INTRADERMA ONE (07:52)
--- NOTE | 2019-10-20 08:38 | P.PCN ---
Date of Procedure: 10/20/19 Procedure(s) Performed: PREOPERATIVE DIAGNOSIS: 1-Lumbar Spondylosis with Facet Arthropathy without myelopathy. 2- Lumber degenerative disc disease POSTOPERATIVE DIAGNOSIS: 1- Lumbar Spondylosis with Facet Arthropathy without myelopathy. 2- Lumber degenerative disc disease PROCEDURES : Left Radiofrequency thermocoagulation, L3 , L4 , and L5 medial branch, with fluoroscopic guidance (fluoroscopy images available in the radiology department) ( to denervate the facet joint at Left L4-5 ,and L5-S1 levels ) ANESTHESIA: Moderate sedation with intravenous versed 2 mg and fentaneyl 150 mcg, and local infiltration with Ropivacaine 0.5 % . EBL: Minimal PROCEDURE INDICATION: The patient with low back pain secondary to lumbar facet arthropathy who had more than 50% relief of her pain with previous diagnostic lumbar medial branch block with bupivacaine. PROCEDURE DESCRIPTION / TECHNIQUE: The patient was seen and identified in the preoperative area. Risks, benefits, complications, including but not limited to risk of infection ,bleeding , allergic reactions to the medications and no complete pain releife , and alternatives were discussed with the patient, the patient agreed to proceed with the procedure and signed the consent. IV was started. Vital signs remained stable throughout the procedure. Patient was taken to the OR and time out was completed. The patient was placed in the prone position on the procedure table. The lumber area was prepped and draped in the usual sterile fashion. . Vital signs were closely monitored during the procedure .IV sedation was used during the procedure to decrease patients anxiety. Using AP and then oblique fluoroscopy, the ``eye of the Nathaniel dog corresponding to the connection between the superior and transverse articular processes of Left L3, L4, and L5 were identified, marked, and localized with 1% lidocaine. Subsequently, a 18 guage 150-mm radiofrequency cannula with a 10-mm active tip was advanced guided by fluoroscopy to each of the``eyes of the Nathaniel dog at Left L3, L4, and L5. Each site then underwent sensory testing at 50 Hz and 0 to 1 volt and motor testing at 2.5 Hz and 0 to 3 volt with local stimulation, but no radicular symptoms down the legs. Thereafter the Left L3, L4 , and L5 sites underwent radiofrequency thermocoagulation at 80 degrees celsius for 90 seconds after injecting 0.5 ml of PF Ropivacaine 1ml, then after the thermocoagulation done , 1 ml of the block solution containing Depo-Medrol 40 mg and 3 ml of Ropivacaine 0.5% was injected at the Left L3 , L4 , and L5 , levels after negative aspiration of CSF and blood and with no paresthesias. Cannulas were retracted while injecting lidocaine 1% until the needle is out. At the end of the procedure, the skin was cleansed and bandages were applied. COMPLICATIONS: No acute complications. DISPOSITION / PLANS: The patient was placed in a supine position and transferred to the recovery area in a stable condition for observation and was discharged from the recovery room after meeting discharge criteria. Home discharge instructions given to the patient by the staff. The patient was reexamined prior to discharge. The patient will schedule a follow up in the clinic in 2-4 weeks.
[2019-10-20] MEDS ORDERED: IV FLUID CONTINUATION 1,000 ML IV ONE (08:40)
--- NOTE | 2019-10-20 08:43 | FL ---
EXAMINATION TYPE: FL guided pain mgmt statistic DATE OF EXAM: 10/20/2019 CLINICAL HISTORY: Low back pain. TECHNIQUE: Fluoroscopy. COMPARISON: None. FINDINGS: Fluoroscopic guidance was provided during pain relief procedure performed by Dr. Recinos . A total of 30 seconds of fluoroscopic time was utilized during the procedure and 3 spot images are acquired. Images acquired shows needle localization at multiple levels in the lumbar spine. IMPRESSION: As Above.
[2019-10-20 08:46] VITALS: RESP 18
[2019-10-20 09:00] VITALS: BP 121/78; PULSE 78
== END 2019-10-20 09:20 | disposition home or self-care (01) ==
LOC: ORPAIN 07:24
PROVIDERS: ATTEND Specialist
DX: G89.29 Other chronic pain (principal); M47.816 Spondylosis without myelopathy or radiculopathy, lumbar region; M51.36 Other intervertebral disc degeneration, lumbar region; Z88.0 Allergy status to penicillin; Z79.1 Long term (current) use of non-steroidal anti-inflammatories (NSAID); Z79.890 Hormone replacement therapy; Z79.899 Other long term (current) drug therapy; Z79.52 Long term (current) use of systemic steroids
CPT/HCPCS: 64635; 64636; J2250; J1030; J3010; 99152; 99153

== ENCOUNTER → 2019-11-10 | Outpatient (CLI) | payer OTHER ==
[2019-11-10 12:30] VITALS: BP 124/87; PULSE 79; RESP 18
--- NOTE | 2019-11-11 20:08 | P.PAINPG ---
Subjective Progress Note Date: 11/10/19 This is a follow-up visit for this 54 years old female with a chronic history of severe low back pain she states lumbar spondylosis with lumbar facet arthropathy, Status post radiofrequency thermocoagulation of the medial branch block lumbar area L3, L4, L5, bilaterally , her low back pain improved, currently she is complaining of severe localized pain in the low back area above the iliac crest, she denies any numbness or tingling sensation, she denies any fever or night sweats and there is no change in the bowel movement or urination, she denies any motor deficit, she continued to use Mobic 7.5 mg daily Neurontin 800 mg 3 times a day and Zanaflex 4 mg daily, she denies any side effect of the medication and she is getting prescription refills from her primary care A Objective - Vital Signs Vital signs: Vital Signs Temp Pulse 79 11/10/19 12:20 Resp 18 11/10/19 12:20 BP 124/87 11/10/19 12:20 Pulse Ox 98 11/10/19 12:20 - Exam Physical Examinations : -Constitutiona : Cooperative , not in acute distress . -HEENT : nech : supple , no Lymphadenopathy , normal thyroid size . : eyes : no ptosis , no icterus, no photophobia . - neurologic : Cranial nerve II to XII intact , no focal neurological deffecit . -psychatric : alert , oriented X 3 , appropriate affect , intact judgment and insight . -Lymphatic : no Lymphadenopathy . - musculoskeltal : Lumber spine moter stegnth lower extremities ,thigh and legs 5/5 Right side , 5/5 Left side deep tendon reflexes : normal Knee Jerk , normal ankle Jerk lumber facet Loading Test =positive Right , positive Left Range of motion of the lumbar spine Flexion 30 degrees, extension 10 degrees strait leg raising test = positive at 30 degree Fabere test= positive Right , and positive LT . Sever tenderness over the Sacroiliac joint on the Right , and Left sides Severe tenderness over the iliolumbar ligament bilaterally Assessment and Plan Plan: Assessment and plan= lumbar spondylosis with lumbar facet arthropathy without myelopathy. Lumbar degenerative disc disease. Iliolumbar ligament neuralgia. Bilateral sacroiliitis. Status post RFA of the medial branch lumbar area, currently patient complaining of severe localized pain in the iliolumbar ligament area She will be good candidate to have bilateral iliolumbar ligaments steroid injections under fluoroscopy guidance Time with Patient: Less than 30 PQRS Measure Charge Sheet Measure #130: Documentation of Current Meds in Medical Chart: Patient's medications documented in chart Measure #226: Tobacco Use: Screen & Cessation Intervention: Pt not a tobacco user Measure #111: Pneumonia Vaccination: Pneumococcal vaccine NOT administered or previously given Measure #47: Advance Care Plan: Advance care planning discussed & documented, pt chose/unable to give Measure #412: Opioid Treatment Agreement: No documentation of signed opioid treatment agreement Measure #408: Opioid Therapy Follow-up Evaluation: Patient had NO f/u eval minimum every 3 months during opioid therapy Measure #317: Preventitive Care & Scrn High Bld Press & F/U: Normal blood pressure, f/u not required Measure #128: Body Mass Index (BMI) Screening & Follow-up: BMI documented ABOVE normal parameters - f/u documented Measure #131: Pain Assessment & Follow-up: Pain positive & plan documented, Fol low-up scheduled Measure #431: Unhealthy Alcohol Use Preventative Care & Scrn: Patient not identified as an unhealthy alcohol user PQRS Narrative: Smoking Status Never smoker Blood Pressure 124/87 Pain Intensity [Lower Back] 8 Scale Used Numeric (1 - 10) Hx Alcohol Use (MH) Yes Home Medications: Ambulatory Orders Gabapentin [Neurontin] 800 mg PO TID 02/10/18 Levothyroxine Sodium [Synthroid] 175 mcg PO DAILY 02/10/18 Omeprazole 20 mg PO DAILY 08/14/19 Pramipexole [Mirapex] 1 mg PO HS 08/14/19 tiZANidine [Zanaflex] 4 mg PO DAILY 08/18/19 Hydrocortisone [Cortef] 5 mg PO PC-SUPPER 09/30/19 Hydrocortisone [Cortef] 10 mg PO DAILY 09/30/19 Meloxicam [Mobic] 7.5 mg PO DAILY 09/30/19 methylPREDNISolone Dose Pack [Medrol Dose Pack] 4 mg PO DIRECTED 11/05/19 Controlled Substance Measures - Controlled Substance Measures Is patient prescribed a controlled substance at discharge?: No
== END | disposition home or self-care (01) ==
LOC: PNWHC3 12:04
PROVIDERS: ATTEND Specialist
DX: M47.816 Spondylosis without myelopathy or radiculopathy, lumbar region (principal); M46.96 Unspecified inflammatory spondylopathy, lumbar region; M51.36 Other intervertebral disc degeneration, lumbar region; M46.1 Sacroiliitis, not elsewhere classified; G58.8 Other specified mononeuropathies; Z79.891 Long term (current) use of opiate analgesic; Z79.899 Other long term (current) drug therapy; Z79.890 Hormone replacement therapy
CPT/HCPCS: 99211

== ENCOUNTER 2019-11-24 08:48 | Day surgery (SDC) | payer OTHER ==
[2019-11-20 14:21] VITALS: BMI 38.7
[2019-11-24] MEDS ORDERED: LIDOCAINE 1% (10MG/ML) FOR IV START INTRADERMA ONE (09:35)
[2019-11-24 09:44] VITALS: TEMP 97.6
[2019-11-24] MEDS ORDERED: MIDAZOLAM 2 MG/2 ML VIAL ONE (10:19)
[2019-11-24] MEDS ORDERED: ROPIVACAINE 5MG/ML 20ML VIAL ONE (10:19)
[2019-11-24] MEDS ORDERED: fentaNYL (PF) 50 MCG/ML 2 ML AMP ONE (10:19)
[2019-11-24] MEDS ORDERED: methylPREDNISolone ACETATE 40 MG/ML 1 ML VIAL ONE (10:19)
--- NOTE | 2019-11-24 10:30 | P.PCN ---
Date of Procedure: 11/24/19 Procedure(s) Performed: Procedure= bilateral iliolumbar ligament steroid injection under fluoroscopy guidance (fluoroscopy image stored on file in the radiology Department ) Preoperative diagnosis= 1-bilateral iliolumbar ligament neuralgia 2-lumbar degenerative disc disease 3-lumbar facet arthropathy Postoperative diagnosis=1-bilateral iliolumbar ligament neuralgia 2-lumbar degenerative disc disease 3-lumbar facet arthropathy Complication = none Condition= stable Anesthesia= moderate sedation with intravenous Versed 2 mg , and fentanyl 50 micrograms . Indication for the procedure= patient complaining of low back pain , examination was positive for severe tenderness over the iliolumbar ligament bilaterally and patient diagnosed with sacroiliitis, for this reason she was good candidate for bilateral iliolumbar steroid injection. Description of the procedure= procedure risk and benefits discussed with the patient, including but not limited, risk of infection and bleeding, and ALLERGIC reaction to the medication and not complete pain relief and patient agreed with the preceding patient taken to the operating room, placed in prone position or standard monitors applied to the patient then after induction of anesthesia back prepped with chlorhexidine 3 times , Then under strict sterile technique, first I did the right iliolumbar ligament the which was identified under fluoroscopy guidance been local infiltration of the skin and subcu interstitial with lidocaine 1% then 22-gauge Quincke Needle advanced slowly under fluoroscopy and placed at the location of iliolumbar ligament needle placement confirmed with AP and oblique and lateral view and after appropriate needle placement confirmed and after negative aspiration, or heme , then Ropivacaine 0.5% 5 mL, and 20 mg of Depo-Medrol mixed together and injected in the right sacroiliac joint after negative aspiration patient tolerated the procedure well without any complication. The same procedure was done for the left side iliolumbar ligament
[2019-11-24] MEDS ORDERED: IV FLUID CONTINUATION 600 ML IV ONE (10:40)
[2019-11-24 10:53] VITALS: BP 98/59; PULSE 77; RESP 18
--- NOTE | 2019-11-24 10:53 | FL ---
EXAMINATION TYPE: FL guided pain mgmt statistic DATE OF EXAM: 11/24/2019 CLINICAL HISTORY: Low back pain. TECHNIQUE: Fluoroscopy. COMPARISON: None. FINDINGS: Fluoroscopic guidance was provided during pain relief procedure performed by Dr. Recinos . A total of 3 seconds of fluoroscopic time was utilized during the procedure and two spot images ar e acquired. Images acquired shows needle localization at few levels in the mid to lower lumbar spine . IMPRESSION: As Above.
== END 2019-11-24 11:04 | disposition home or self-care (01) ==
LOC: ORPAIN 08:48
PROVIDERS: ATTEND Specialist
DX: G58.8 Other specified mononeuropathies (principal); M51.36 Other intervertebral disc degeneration, lumbar region; M47.816 Spondylosis without myelopathy or radiculopathy, lumbar region; Z90.710 Acquired absence of both cervix and uterus
CPT/HCPCS: 20550; J2250; J1030; J3010; J2795

== ENCOUNTER → 2019-12-08 | Outpatient (CLI) | payer OTHER ==
[2019-12-08 12:40] VITALS: BP 109/77; PULSE 64; RESP 18
--- NOTE | 2019-12-08 13:34 | P.PN ---
Subjective Progress Note Date: 12/08/19 This is a 54-year-old female with history of chronic lower back pain for the last year. The patient had lumbar medial branch RFA and lumbar sacral ligament injection but none of these procedures has helped her pain. The patient is frustrated but after further questioning it seems that she had at least a 30-40% of pain relief. The patient had to stop working because of her pain. Patient denies new-onset weakness, bowel/bladder incontinence, or any other signs or symptoms of cauda equina syndrome. There are no signs of acute intoxication, and no indications of medication diversion or overuse. In addition to above, 13-point review of systems is also negative for chest pain, shortness of breath, changes in vision, changes in hearing, new onset weakness, abdominal pain, diarrhea, extreme fatigue, malaise, fever, skin changes, homicidal or suicidal ideation, or bowel or bladder incontinence. Vital Signs: Reviewed in EMR Gen: AAOx3, NAD HEENT: PERRLA,hearing grossly normal Pulm: resp unlabored Heart: Regular Neck: supple, trachea midline Tenderness in the paravertebral musculature: Positive tenderness in the lumbar paravertebral musculature Richmond's test mildly positive on the right side Positive tenderness around the right sacroiliac joint Neuro: CN II-XII grossly intact, Imaging: Reviewed in EMR/chart Assessment: Lumbar spondylosis without myelopathy Possible right sacroiliitis Remote history of colon carcinoma with chemotherapy Chemotherapy-induced peripheral neuropathy Plan: 1. Explanation: Opioid and psychological risk scores were reviewed. Diagnoses, prognoses, and multiple treatment options including but not limited to physical therapy, interventional therapies, adjuvant medical therapies, narcotic medication therapies, and surgery were discussed with the patient and all questions were answered to the patient's satisfaction. 2. Opioid agreement: Signed with the patient and the patient is warned not to use opioids while driving or before driving and not to combine opioids with benzodiazepines or alcohol. 3. Counseling: The patient was counseled extensively on SMOKING CESSATION, BODY MASS INDEX, EXERCISE. Specifically, the patient was instructed regarding the importance of smoking cessation, obesity, and exercise in the context of both chronic pain and overall health. 4. Procedures: The patient may benefit from getting right sacroiliac joint steroid injection however she is hesitant about getting that done because of the failure of her previous injection to help her pain. 5. Consultations: None 6. Investigations: None 7. Medications: I will start tramadol 50 mg 1 by mouth daily I will give her 30 pills with no refills . We will reevaluate in 4 weeks to see if tramadol is helping her pain. The goal is to decrease the patient's pain to a level that she can resume her work. 8. Disposition: Return to clinic in 4 weeks 9. Maps were reviewed and were appropriate. Controlled Substance Measures Is patient prescribed a controlled substance at discharge?: Yes When asked, does pt state using other controlled substances?: No If prescribed controlled substance>3 days was MAPS reviewed?: Yes If Rx opioid, was Start Talking consent form obtained?: Yes If opioid is for acute pain is fill amount 7 days or less?: No Was information provided regarding opioid addiction?: Yes Objective - Vital Signs Vital signs: Vital Signs Temp Pulse 64 12/08/19 12:37 Resp 18 12/08/19 12:37 BP 109/77 12/08/19 12:37 Pulse Ox 99 12/08/19 12:37
== END | disposition home or self-care (01) ==
LOC: PNWHC3 11:57
PROVIDERS: ATTEND Anesthesiology
DX: M47.816 Spondylosis without myelopathy or radiculopathy, lumbar region (principal); G62.0 Drug-induced polyneuropathy; T45.1X5A Adverse effect of antineoplastic and immunosuppressive drugs, initial encounter; Z85.038 Personal history of other malignant neoplasm of large intestine; Z92.21 Personal history of antineoplastic chemotherapy; Z79.891 Long term (current) use of opiate analgesic
CPT/HCPCS: 99211

== ENCOUNTER → 2020-01-05 | Outpatient (CLI) | payer OTHER ==
[2020-01-05 12:44] VITALS: BP 138/89; PULSE 86; RESP 18
--- NOTE | 2020-01-05 14:54 | P.PAINPG ---
Subjective Progress Note Date: 01/05/20 This is a follow-up visit for this 54 years old female with a chronic history of severe low back pain she states lumbar spondylosis with lumbar facet arthropathy, Status post radiofrequency thermocoagulation of the medial branch block lumbar area L3, L4, L5, bilaterally , and later on we did iliolumbar ligament steroid injection her low back pain improved, he continues to have some low back pain, but her low back pain and promote more than 50%,, she denies any numbness or tingling sensation, she denies any fever or night sweats and there is no change in the bowel movement or urination, she denies any motor deficit, she continued to use Mobic 7.5 mg daily , Ultram 50 mg one tablet by mouth daily, she denies any side effect of these medications. Objective - Vital Signs Vital signs: Vital Signs Temp Pulse 86 01/05/20 12:41 Resp 18 01/05/20 12:41 BP 138/89 01/05/20 12:41 Pulse Ox 96 01/05/20 12:41 - Exam -Constitutiona : Cooperative , not in acute distress . -HEENT : nech : supple , no Lymphadenopathy , normal thyroid size . : eyes : no ptosis , no icterus, no photophobia . - neurologic : Cranial nerve II to XII intact , no focal neurological deffecit . -psychatric : alert , oriented X 3 , appropriate affect , intact judgment and insight . -Lymphatic : no Lymphadenopathy . - musculoskeltal : Lumber spine moter stegnth lower extremities ,thigh and legs 5/5 Right side , 5/5 Left side deep tendon reflexes : normal Knee Jerk , normal ankle Jerk lumber facet Loading Test =positive Right , positive Left Range of motion of the lumbar spine Flexion 30 degrees, extension 10 degrees strait leg raising test = positive at 30 degree Fabere test= positive Right , and positive LT . Sever tenderness over the Sacroiliac joint on the Right , and Left sides Assessment and Plan Plan: Assessment and plan= chronic low back pain secondary to lumbar spondylosis with lumbar facet arthropathy . Bilateral sacroiliitis Status post RFA of the medial branch lumbar area chronic and current use of high-risk medication (opioids) Patient denies any side effects of the current pain medication and the current treatment/medication helping the patient to do activity of daily living , Diagnoses, prognosis, treatment options, including but not limited to physical therapy, medication management, interventional therapies, and surgery, were discussed with the patient All the questions answered The narcotic consent was signed and patient agreed and understood the side effects and complications of opioid treatment. Patient signed the narcotic agreement, and was orally counseled, not to overuse, not to abuse, not to Divert , not tp sell pain medication, and to take it as prescribed only, Patient was counseled not to drive or operate heavy equipment while using narcotic medication, and advised not to use alcohol or any Illicit drugs while using the narcotis. understanding that lack of compliance with any of the above instructions, will likely to cause discharge from, the pain service, not to renew his narcotic prescriptions MAPS Reviwed and it was apropriate . Medication managements= patient will be given prescription refills for Ultram 50 mg one tablet by mouth daily dispense 30 with one refill, Mobic 7.5 mg daily dispense 60 with 1 refill Interventions= in the future if pain increases patient potentially could benefit from bilateral sacroiliac joint steroid injection. Follow up = 2 months for medication refill , Time with Patient: Less than 30 PQRS Measure Charge Sheet Measure #130: Documentation of Current Meds in Medical Chart: Patient's medications documented in chart Measure #226: Tobacco Use: Screen & Cessation Intervention: Pt not a tobacco user Measure #111: Pneumonia Vaccination: Pneumococcal vaccine NOT administered or previously given Measure #47: Advance Care Plan: Advance care planning discussed & documented, pt chose/unable to give Measure #412: Opioid Treatment Agreement: Documented signed opioid trtmnt agreemnt min once during opioid trtmnt Measure #408: Opioid Therapy Follow-up Evaluation: Patient had f/u eval minimum every 3 months during opioid therapy Measure #317: Preventitive Care & Scrn High Bld Press & F/U: Normal blood pressure, f/u not required Measure #128: Body Mass Index (BMI) Screening & Follow-up: BMI documented ABOVE normal parameters - f/u documented Measure #131: Pain Assessment & Follow-up: Pain positive & plan documented, Follow-up scheduled Measure #431: Unhealthy Alcohol Use Preventative Care & Scrn: Patient not identified as an unhealthy alcohol user PQRS Narrative: Smoking Status Never smoker Blood Pressure 138/89 Pain Intensity [Lower Back] 5 Scale Used Numeric (1 - 10) Hx Alcohol Use (MH) Yes Home Medications: Ambulatory Orders Gabapentin [Neurontin] 800 mg PO TID 02/10/18 Levothyroxine Sodium [Synthroid] 175 mcg PO DAILY 02/10/18 Omeprazole 20 mg PO DAILY 08/14/19 Pramipexole [Mirapex] 1 mg PO HS 08/14/19 Hydrocortisone [Cortef] 5 mg PO PC-SUPPER 09/30/19 Hydrocortisone [Cortef] 10 mg PO DAILY 09/30/19 Meloxicam [Mobic] 7.5 mg PO DAILY #30 tab 01/05/20 traMADol HCL 1 tab PO DAILY PRN #30 tab 01/05/20 Controlled Substance Measures - Controlled Substance Measures Is patient prescribed a controlled substance at discharge?: Yes When asked, does pt state using other controlled substances?: No If prescribed controlled substance>3 days was MAPS reviewed?: Yes If Rx opioid, was Start Talking consent form obtained?: Yes If opioid is for acute pain is fill amount 7 days or less?: No Was information provided regarding opioid addiction?: Yes
== END | disposition home or self-care (01) ==
LOC: PNWHC3 12:15
PROVIDERS: ATTEND Specialist
DX: G89.29 Other chronic pain (principal); M47.816 Spondylosis without myelopathy or radiculopathy, lumbar region; M46.96 Unspecified inflammatory spondylopathy, lumbar region; M46.1 Sacroiliitis, not elsewhere classified; Z98.890 Other specified postprocedural states; Z79.1 Long term (current) use of non-steroidal anti-inflammatories (NSAID); Z79.899 Other long term (current) drug therapy
CPT/HCPCS: 99211

== ENCOUNTER → 2020-04-19 | Outpatient (CLI) | payer OTHER ==
[2020-04-19 19:59] LABS: African American GFR (CKD) 121.5 (60.0-200.0); Albumin 4.1 g/dL (3.80-4.90); Albumin/Globulin Ratio 1.71 (1.60-3.17); Anion Gap 10.6 mmol/L (4.00-12.00); BUN/Creat Ratio 13.33 Ratio (12.00-20.00); Calcium 9.2 mg/dL (8.7-10.3); Carbon Dioxide 24.4 mmol/L (21.6-31.8); Globulin 2.4 g/dL (1.6-3.3); Non-African American GFR(CKD) 104.8 (60.0-200.0); Total Bilirubin 0.9 mg/dL (0.2-1.2); Total Protein 6.5 g/dL (6.2-8.2)
== END | disposition home or self-care (01) ==
LOC: LABWHC1 12:28
PROVIDERS: ATTEND Internal Medicine Endocrinology, Diabetes & Metabolism
DX: E03.8 Other specified hypothyroidism (principal); E27.40 Unspecified adrenocortical insufficiency
CPT/HCPCS: 36415; 80053; 82024; 82533; 84443

== ENCOUNTER → 2020-12-30 | Outpatient (CLI) | payer OTHER ==
[2020-12-31 00:58] LABS: Basophils # (A) 0.03 X 10*3/uL (0.00-0.10); Basophils % (A) 0.3 %; Eosinophils # (A) 0.05 X 10*3/uL (0.04-0.35); Eosinophils % (A) 0.6 %; HCT 38.3 % (37.2-46.3); HGB 12.2 g/dL (12.0-15.0); Lymphocytes # (A) 1.32 X 10*3/uL (0.90-5.00); Lymphocytes % (A) 14.7 %; MCH 28.8 pg (27.0-32.0); MCHC 31.9 g/dL (32.0-37.0); MCV 90.3 fL (80.0-97.0); Mean Platelet Volume 9.3 fL (9.5-12.2); Monocytes # (A) 0.66 X 10*3/uL (0.20-1.00); Monocytes % (A) 7.4 %; Neutrophils # (A) 6.86 X 10*3/uL (1.80-7.70); Neutrophils % (A) 76.4 %; Platelet Count 310 X 10*3/uL (140-440); RBC 4.24 X 10*6/uL (4.10-5.20); RDW 12.5 % (11.5-14.5); WBC 8.97 X 10*3/uL (4.50-10.00)
[2020-12-31 02:11] LABS: Erythrocyte Sedimentation Rate 64 mm/Hr (0-30)
[2020-12-31 04:03] LABS: Codfish IgE <0.10 kU/L; Egg White IgE <0.10 kU/L
[2020-12-31 05:16] LABS: Immunoglobulin E 5.18 IU/mL (0.00-114.00)
[2020-12-31 05:34] LABS: Scallop IgE <0.10 kU/L; Walnut IgE (Food) <0.10 kU/L
[2020-12-31 05:35] LABS: Clam IgE <0.10 kU/L; Shrimp IgE <0.10 kU/L; Soybean IgE <0.10 kU/L
[2020-12-31 05:36] LABS: Peanut IgE <0.10 kU/L
== END | disposition home or self-care (01) ==
LOC: LABWHC1 14:57
PROVIDERS: ATTEND Otolaryngology
DX: L50.0 Allergic urticaria (principal); R21 Rash and other nonspecific skin eruption
CPT/HCPCS: 36415; 82785; 85025; 85652; 86003; 86038; 86160

== ENCOUNTER 2022-01-29 16:01 | Emergency (ER) | payer OTHER ==
[2022-01-29] MEDS ORDERED: SODIUM CHLORIDE 0.9% 2,000 ML IV STA (18:36)
[2022-01-29] MEDS ORDERED: ONDANSETRON 4 MG/2 ML VIAL IVP STA (18:36)
[2022-01-29 18:57] LABS: Basophils % (A) 0 %; Eosinophils # (A) 0.2 k/uL (0-0.7); Eosinophils % (A) 3 %; HCT 39.2 % (34.0-46.0); HGB 13.1 gm/dL (11.4-16.0); Lymphocytes # (A) 1.1 k/uL (1.0-4.8); Lymphocytes % (A) 15 %; MCH 29.8 pg (25.0-35.0); MCHC 33.5 g/dL (31.0-37.0); Mean Platelet Volume 8.3; Monocytes # (A) 0.4 k/uL (0-1.0); Monocytes % (A) 6 %; Neutrophils # (A) 5.4 k/uL (1.3-7.7); Neutrophils % (A) 74 %; Platelet Count 221 k/uL (150-450); RBC 4.41 m/uL (3.80-5.40); RDW 12.6 % (11.5-15.5); WBC 7.3 k/uL (3.8-10.6)
--- NOTE | 2022-01-29 19:01 | ED ---
Nausea/Vomiting/Diarrhea HPI - General Chief complaint: Nausea/Vomiting/Diarrhea Stated complaint: Vomiting Time Seen by Provider: 01/29/22 18:24 Source: patient Mode of arrival: ambulatory Limitations: no limitations - History of Present Illness Initial comments: Patient is a 56-year-old female who presents to the emergency department with a chief complaint of nausea and vomiting 7 weeks. Patient states she vomits about 15-20 times a day. Patient states she has abdominal pain that consistently migrates in location daily. She states that her bowel movements have been loose, nonbloody. Patient states she saw her primary care provider one month ago who prescribed her Protonix although she was unable to fill it due to insurance. Patient was taking omeprazole and ran out which she states did not help her symptoms. Patient has concern today due to the inability to tolerate food or liquid. She saw her primary care provider who gave her CT r esults from 01/19/22 and sent her here. CT of the abdomen with oral IV contrast shows splenomegaly and low attenuation of the liver possibly due to hepatic steatosis. Patient has an appointment with Dr. Delaney on 02/13/22. She states she has seen Dr. Delaney before. Patient does have a history of colon cancer and has been in remission since 2010. Patient states her last colonoscopy was a year and a half ago which she says was normal. Patient states she drinks once a month, usually [place] and rum or frozen liqueur drinks. She does mention a dry cough that began yesterday with no other respiratory symptoms including fever, chills, headache, congestion, runny nose, and sore throat. Patient has no other concerns at this time including shortness of breath, chest pain, and burning with urination. - Related Data Home Medications Medication Instructions Recorded Confirmed Pramipexole [Mirapex] 1 mg PO HS 08/14/19 01/05/20 Meloxicam [Mobic] 7.5 mg PO HS 01/29/22 01/29/22 metFORMIN HCL 500 mg PO HS 01/29/22 01/29/22 Previous Rx's Medication Instructions Recorded Dicyclomine [Bentyl] 20 mg PO QID 5 Days #20 tablet 01/29/22 Ondansetron Odt [Zofran Odt] 4 mg PO Q8HR PRN #21 tab 01/29/22 Allergies Allergy/AdvReac Type Severity Reaction Status Date / Time Penicillins Allergy Severe Swelling Verified 01/29/22 19:37 Review of Systems ROS Statement: Those systems with pertinent positive or pertinent negative responses have been documented in the HPI. ROS Other: All systems not noted in ROS Statement are negative. Past Medical History Past Medical History: Cancer, Deep Vein Thrombosis (DVT), GERD/Reflux, Musculoskeletal Disorder, Rheumatoid Arthritis (RA), Skin Disorder, Thyroid Disorder Additional Past Medical History / Comment(s): hx colon cancer 2010, chemo completed, BLOOD CLOT IN ABDOMEN AFTER BOWEL SURG, NEUROPATHY forrest legs/feet, restless leg, palpitations, elevated liver enzymes- monitoring. Chronic back pain, bulging disc, fx. Spider bites lt arm, History of Any Multi-Drug Resistant Organisms: None Reported Past Surgical History: Bladder Surgery, Bowel Resection, Hysterectomy, Tonsillectomy, Tubal Ligation Additional Past Surgical History / Comment(s): Cervical fusion C-5,6,7. Pain procedures Past Anesthesia/Blood Transfusion Reactions: Family History of Problems w/ Anesthesia, Motion Sickness Additional Past Anesthesia/Blood Transfusion Reaction / Comment(s): MOTHER HAS PONV Past Psychological History: Depression Smoking Status: Never smoker Past Alcohol Use History: Occasional Past Drug Use History: None Reported - Past Family History Father Family Medical History: Cancer General Exam Limitations: no limitations General appearance: alert, in no apparent distress Head exam: Present: atraumatic, normocephalic, normal inspection Eye exam: Present: normal appearance, PERRL, EOMI. Absent: scleral icterus, conjunctival injection, periorbital swelling ENT exam: Present: normal oropharynx, mucous membranes moist Neck exam: Present: normal inspection, full ROM. Absent: lymphadenopathy Respiratory exam: Present: normal lung sounds bilaterally. Absent: respiratory distress, wheezes, rales, rhonchi, stridor, accessory muscle use, decreased breath sounds, prolonged expiratory Cardiovascular Exam: Present: regular rate, normal rhythm, normal heart sounds. Absent: systolic murmur, diastolic murmur, rubs, gallop, clicks GI/Abdominal exam: Present: soft, normal bowel sounds. Absent: distended, tenderness, guarding, rebound, rigid Neurological exam: Present: alert, oriented X3, CN II-XII intact Psychiatric exam: Present: normal affect, normal mood Skin exam: Present: warm, dry, intact, normal color. Absent: rash Course Vital Signs 01/29/22 01/29/22 16:10 19:02 Temperature 98.5 F Pulse Rate 85 80 Respiratory 20 18 Rate Blood Pressure 136/83 122/80 O2 Sat by Pulse 98 97 Oximetry Medical Decision Making - Medical Decision Making This is a 56 -year-old female who presents with intractable nausea and vomiting and generalized abdominal pain. Thorough history and examination were performed. Patient is afebrile. The abdomen is soft and nontender. Laboratory studies are unremarkable. Large fluid bolus and Zofran were given. Patient will be discharged with Zofran, Bentyl, and Gilson Farley with instruction to follow-up with Dr. Delaney at her previously scheduled appointment on 02/23/22. Instructed to return to the emergency department if she experiences new, concerning, or worsening symptoms. Patient verbalizes understanding and is agreeable to plan. Dr. Britton is my attending. - Lab Data Result diagrams: 01/29/22 18:50 01/29/22 18:50 Lab Results 01/29/22 01/29/22 Range/Units 18:50 18:50 WBC 7.3 (3.8-10.6) k/uL RBC 4.41 (3.80-5.40) m/uL Hgb 13.1 (11.4-16.0) gm/dL Hct 39.2 (34.0-46.0) % MCV 89.0 (80.0-100.0) fL MCH 29.8 (25.0-35.0) pg MCHC 33.5 (31.0-37.0) g/dL RDW 12.6 (11.5-15.5) % Plt Count 221 (150-450) k/uL MPV 8.3 Neutrophils % 74 % Lymphocytes % 15 % Monocytes % 6 % Eosinophils % 3 % Basophils % 0 % Neutrophils # 5.4 (1.3-7.7) k/uL Lymphocytes # 1.1 (1.0-4.8) k/uL Monocytes # 0.4 (0-1.0) k/uL Eosinophils # 0.2 (0-0.7) k/uL Basophils # 0.0 (0-0.2) k/uL Sodium 136 L (137-145) mmol/L Potassium 3.9 (3.5-5.1) mmol/L Chloride 104 (98-107) mmol/L Carbon Dioxide 25 (22-30) mmol/L Anion Gap 7 mmol/L BUN 6 L (7-17) mg/dL Creatinine 0.72 (0.52-1.04) mg/dL Est GFR (CKD-EPI)AfAm >90 (>60 ml/min/1.73 sqM) Est GFR (CKD-EPI)NonAf >90 (>60 ml/min/1.73 sqM) Glucose 99 (74-99) mg/dL Calcium 9.4 (8.4-10.2) mg/dL Total Bilirubin 1.0 (0.2-1.3) mg/dL AST 49 H (14-36) U/L ALT 32 (4-34) U/L Alkaline Phosphatase 101 (38-126) U/L Total Protein 8.0 (6.3-8.2) g/dL Albumin 4.4 (3.5-5.0) g/dL Lipase 146 (23-300) U/L Disposition Clinical Impression: Nausea & vomiting, Abdominal pain Disposition: HOME SELF-CARE Instructions (If sedation given, give patient instructions): Acute Nausea and Vomiting (ED), Abdominal Pain (ED) Additional Instructions: Please take medication as directed. Please follow-up with Dr. Delaney as previously scheduled. Return to the emergency department if you experience new, concerning, or worsening symptoms. Is patient prescribed a controlled substance at d/c from ED?: No Referrals: Rafaela Ott DO [Primary Care Provider] - 1-2 days Time of Disposition: 19:45
[2022-01-29 19:09] LABS: Potassium 3.9 mmol/L (3.5-5.1)
[2022-01-29 19:10] LABS: ALT 32 U/L (4-34); AST 49 U/L (14-36); African American GFR (CKD) >90 (>60 ml/min/1.73 sqM); Albumin 4.4 g/dL (3.5-5.0); Alkaline Phosphatase 101 U/L (38-126); Anion Gap 7 mmol/L; Blood Urea Nitrogen 6 mg/dL (7-17); Calcium 9.4 mg/dL (8.4-10.2); Carbon Dioxide 25 mmol/L (22-30); Chloride 104 mmol/L (98-107); Glucose 99 mg/dL (74-99); Lipase 146 U/L (23-300); Non-African American GFR(CKD) >90 (>60 ml/min/1.73 sqM); Sodium 136 mmol/L (137-145)
[2022-01-29 19:50] VITALS: TEMP 97.8
[2022-01-29 20:46] VITALS: BP 106/62; PULSE 80; RESP 18
== END 2022-01-29 20:46 | disposition home or self-care (01) ==
LOC: EC 16:01
DX: R11.2 Nausea with vomiting, unspecified (principal); R10.9 Unspecified abdominal pain; K21.9 Gastro-esophageal reflux disease without esophagitis; Z79.899 Other long term (current) drug therapy
CPT/HCPCS: 36415; 80053; 83690; 85025; 99284; 96374; 96361 ×2; J2405

== ENCOUNTER → 2022-02-16 | Outpatient (CLI) | payer OTHER ==
[2022-02-16 18:46] LABS: % Iron Saturation 18.35 (12.00-45.00); African American GFR (CKD) 96.9 (60.0-200.0); Albumin 4.4 g/dL (3.8-4.9); Albumin/Globulin Ratio 1.26 (1.60-3.17); Anion Gap 10.4 mmol/L (10.00-18.00); BUN/Creat Ratio 8.5 Ratio (12.00-20.00); Blood Urea Nitrogen 6.8 mg/dL (9.0-27.0); C Reactive Protein 0.7 mg/dL (0.00-0.80); Calcium 9.9 mg/dL (8.7-10.3); Carbon Dioxide 23.6 mmol/L (20.0-27.5); Globulin 3.5 g/dL (1.6-3.3); Non-African American GFR(CKD) 83.6 (60.0-200.0); Potassium 4.2 mmol/L (3.5-5.5); Total Bilirubin 0.6 mg/dL (0.30-1.20); Total Protein 7.9 g/dL (6.2-8.2)
[2022-02-16 19:26] LABS: Basophils # (A) 0.02 X 10*3/uL (0.00-0.10); Basophils % (A) 0.3 %; Eosinophils # (A) 0.09 X 10*3/uL (0.04-0.35); Eosinophils % (A) 1.4 %; HCT 39.6 % (37.2-46.3); HGB 12.6 g/dL (12.0-15.0); Immature Grans, Automated 0.5 %; Lymphocytes # (A) 1.36 X 10*3/uL (0.90-5.00); MCH 28.6 pg (27.0-32.0); MCHC 31.8 g/dL (32.0-37.0); MCV 89.8 fL (80.0-97.0); Mean Platelet Volume 9.4 fL (9.5-12.2); Monocytes % (A) 9.3 %; NRBC Per 100 WBC 0 /100 WBCS (0.0-0.0); Neutrophils # (A) 4.37 X 10*3/uL (1.80-7.70); Neutrophils % (A) 67.5 %; Platelet Count 268 X 10*3/uL (140-440); RBC 4.41 X 10*6/uL (4.10-5.20); RDW 12.5 % (11.5-14.5); WBC 6.47 X 10*3/uL (4.50-10.00)
[2022-02-16 19:48] LABS: Erythrocyte Sedimentation Rate 15 mm/Hr (0-30)
[2022-02-16 20:00] LABS: Protein, Total 7.3 g/dL (6.2-8.2)
[2022-02-16 20:49] LABS: Hepatitis B Surface Antigen Nonreactive (Nonreactive); Hepatitis C IgG Antibody Nonreactive (Nonreactive)
[2022-02-17 01:18] LABS: Gliadin AB IgG, Deaminated NEGATIVE (NEGATIVE); Gliadin AB IgG, Unit 0.4 U/mL
== END | disposition home or self-care (01) ==
LOC: LABWHC1 09:40
PROVIDERS: ATTEND Internal Medicine Gastroenterology
DX: K52.9 Noninfective gastroenteritis and colitis, unspecified (principal); R74.8 Abnormal levels of other serum enzymes
CPT/HCPCS: 36415; 80053; 82103; 82390; 82728; 83516; 83540; 83550; 84165; 85025; 85652; 86038; 86140; 86803; 87340

== ENCOUNTER → 2022-02-26 | Outpatient (CLI) | payer OTHER ==
--- NOTE | 2022-02-26 19:23 | US ---
EXAMINATION TYPE: US abdomen complete DATE OF EXAM: 02/26/2022 COMPARISON: CT chest 08/28/2019 as well as ultrasound same date. CLINICAL HISTORY: Elevated liver enzymes. Elevated liver enzymes, constant N/V x 9 weeks EXAM MEASUREMENTS: Liver Length: 16.0 cm Gallbladder Wall: 0.2 cm CBD: 0.5 cm Spleen: 13.7 cm Right Kidney: 10.7 x 4.9 x 4.9 cm Left Kidney: 10.3 x 5.0 x 4.2 cm Pancreas: visualized portions wnl, limited by overlying midline bowel gas Liver: wnl Gallbladder: wnl Evidence for sonographic Napier's sign: no CBD: wnl Spleen: wnl Right Kidney: wnl Left Kidney: wnl Upper IVC: wnl Abd Aorta: wnl The liver is homogenous. The intrahepatic portion of the IVC and proximal abdominal aorta are within normal limits. There is no evidence of cholelithiasis. Common bile duct is unremarkable. The visu alized portions of the pancreas are homogenous. The spleen is unremarkable. Kidneys are symmetric a nd free of hydronephrosis. No renal lesions are seen. IMPRESSION: No sonographic evidence of acute process to explain patient's symptoms.
== END | disposition home or self-care (01) ==
LOC: RADUSWWP 12:05
PROVIDERS: ATTEND Internal Medicine Gastroenterology
DX: R74.8 Abnormal levels of other serum enzymes (principal)
CPT/HCPCS: 76700

== ENCOUNTER 2022-03-07 10:20 | Day surgery (SDC) | payer OTHER ==
[2022-03-05 12:51] VITALS: BMI 35.2
[2022-03-07] MEDS ORDERED: LIDOCAINE 1% (10MG/ML) FOR IV START INTRADERMA ONE (11:14)
[2022-03-07 11:18] VITALS: TEMP 97
[2022-03-07 11:37] LABS: Glucose,Whole Blood 94 mg/dL (75-99)
[2022-03-07] MEDS ORDERED: PROPOFOL 10 MG/ML 20 ML VIAL IV ONE (12:09)
[2022-03-07] MEDS ORDERED: LIDOCAINE 2% INJ 20 MG/ML (2 ML VIAL) ONE (12:09)
--- NOTE | 2022-03-07 12:22 | P.PCN ---
Date of Procedure: 03/07/22 Procedure(s) Performed: BRIEF HISTORY: Patient is a 56-year-old, pleasant, female scheduled for an upper endoscopy as a part of evaluation of persistent nausea vomiting and passive regurgitation for the last 5 years duration.. PROCEDURE PERFORMED: Esophagogastroduodenoscopy biopsy. PREOPERATIVE DIAGNOSIS: Chronic nausea vomiting for 5 years duration with intermittent dysphagia to solids. IV sedation per anesthesia. PROCEDURE: After informed consent was obtained, the patient was brought into the endoscopy unit. IV sedation was administered by Anesthesia under continuous monitoring. Initially the Olympus GIF-140 video endoscope was inserted into the mouth. Esophagus intubated without any difficulty. It was gradually advanced into the stomach and duodenum and carefully examined. The bulb and the second part of the duodenum appeared normal. Abscesses were done from the duodenum to rule out celiac disease. The scope at this time was withdrawn to the stomach, adequately insufflated with air, and upon careful examination, mucosa of the antrum, had mild antral gastritis and biopsies were done from this area. The body, cardia and the fundus appeared normal. The scope was then withdrawn into the esophagus. The GE junction was located at 39 cm from the incisors. Once sliding type hiatal hernia noted. The esophagus appeared normal. There were no erosions or ulcerations seen area and there was no evidence of esophageal stricture. Biopsies were done from the distal and midesophagus to rule out years of esophagitis and the patient tolerated the procedure well. IMPRESSION: 1. Normal-appearing esophagus with no evidence of esophagitis or esophageal stricture. 2. Small hiatal hernia 3. Mild antral gastritis. RECOMMENDATIONS: The findings of this examination were discussed with the patient as well as her family. She was advised to follow with the biopsy results. Continue with omeprazole 20 mg twice daily and she'll be seen in office in 2-3 weeks..
[2022-03-07 13:05] VITALS: BP 132/76; PULSE 65; RESP 20
== END 2022-03-07 13:10 | disposition home or self-care (01) ==
LOC: ORWHC2ENDO 10:20
PROVIDERS: ATTEND Internal Medicine Gastroenterology
DX: R13.10 Dysphagia, unspecified (principal); K29.50 Unspecified chronic gastritis without bleeding; K21.00 Gastro-esophageal reflux disease with esophagitis, without bleeding; K44.9 Diaphragmatic hernia without obstruction or gangrene; Z86.718 Personal history of other venous thrombosis and embolism; E11.9 Type 2 diabetes mellitus without complications; M06.9 Rheumatoid arthritis, unspecified; E07.9 Disorder of thyroid, unspecified; Z85.038 Personal history of other malignant neoplasm of large intestine; Z79.1 Long term (current) use of non-steroidal anti-inflammatories (NSAID); Z79.899 Other long term (current) drug therapy; Z88.0 Allergy status to penicillin
CPT/HCPCS: 88305; 43239; J2704; J2001

== ENCOUNTER → 2022-04-03 | Outpatient (CLI) | payer OTHER ==
[2022-04-03 14:39] LABS: African American GFR (CKD) >90 (>60 ml/min/1.73 sqM); Blood Urea Nitrogen 8 mg/dL (7-17); Non-African American GFR(CKD) >90 (>60 ml/min/1.73 sqM)
--- NOTE | 2022-04-03 15:02 | CT ---
EXAMINATION TYPE: CT abdomen pelvis w con DATE OF EXAM: 04/03/2022 HISTORY: Weight loss, cannot keep food down CT DLP: 1510.7mGycm Automated Exposure Control for Dose Reduction was Utilized. CONTRAST: CT scan of the abdomen and pelvis is performed with oral and with IV Contrast, patient injected with 100 mL of Isovue 300. COMPARISON: CT abdomen and pelvis July 09, 2019. Abdominal ultrasound February 26, 2022 FINDINGS: LUNG BASES: No significant abnormality is appreciated. LIVER/GB: Liver redemonstrated heterogeneously hypodense correlating with heterogeneous hyperechoic a ppearance on recent ultrasound. No new biliary dilatation. Liver size is stable and normal in size. PANCREAS: No significant abnormality is seen. SPLEEN: Splenomegaly at 15.4 cm long axis axial image 26 more prominent from prior CT. ADRENALS: No significant abnormality is seen. KIDNEYS: Subcentimeter low-density round lesion right kidney series 5 image 41. Benign. BOWEL: Surgical changes from right-sided partial colectomy and small bowel anastomosis redemonstrated .. Contrast does not reach colonic level making evaluation of distal bowel slightly suboptimal. No carlos spicious small or large bowel dilatation. UTERUS/ADNEXA: Uterus surgically absent. Scattered bilateral pelvic phleboliths redemonstrated. LYMPH NODES: No greater than 1cm abdominal or pelvic lymph nodes are appreciated. OSSEOUS STRUCTURES: No significant abnormality is seen. OTHER: No significant additional abnormality is seen. IMPRESSION: There is new splenomegaly which may warrant further clinical workup. Liver is heterogeneo usly hypodense suggesting diffuse fatty infiltration and/or underlying hepatocellular disease. Postsu rgical changes to the proximal colon redemonstrated. No definitive new mass or adenopathy to suggest neoplastic recurrence.
== END | disposition home or self-care (01) ==
LOC: RADCTMAIN 12:49
PROVIDERS: ATTEND Internal Medicine Gastroenterology
DX: R16.1 Splenomegaly, not elsewhere classified (principal)
CPT/HCPCS: 82565; 84520; 74177; 36415; Q9967

== ENCOUNTER 2022-04-15 19:16 | Emergency (ER) | payer OTHER ==
[2022-04-15] MEDS ORDERED: ONDANSETRON 4 MG/2 ML VIAL IVP STA ×2 (19:45→22:55)
[2022-04-15] MEDS ORDERED: SODIUM CHLORIDE 0.9% 1,000 ML IV STA (19:45)
--- NOTE | 2022-04-15 20:21 | ED ---
General Adult HPI - General Chief complaint: Abdominal Pain Stated complaint: Abd pain Time Seen by Provider: 04/15/22 19:25 Source: patient, RN notes reviewed Mode of arrival: ambulatory Limitations: no limitations - History of Present Illness Initial comments: 56-year-old female presents to the emergency department for evaluation of episodes of nausea, vomiting, and diarrhea. Patient states this has been an ongoing issue since December and has been seen by her PCP and GI with no definitive course and treatment. Patient states she is taking her dicyclomine and pantoprazole as prescribed. Reports cumulative weight loss of 30 pounds since December, but is now increasing intake. States she has had an ultrasound of the abdomen and a computed tomography scan of the abdomen and pelvis with no significant findings. Patient denies any travel outside the [place]. No fever, chills, chest pain, shortness of breath, dysuria, hematuria, or hematochezia. - Related Data Home Medications Medication Instructions Recorded Confirmed Pramipexole [Mirapex] 2 mg PO HS 08/14/19 03/07/22 Ibuprofen 800 mg PO DIRECTED PRN 03/05/22 03/07/22 Metoprolol Tartrate [Lopressor] 25 mg PO QAM 03/05/22 03/07/22 Omeprazole 40 mg PO HS 03/05/22 03/07/22 Previous Rx's Medication Instructions Recorded Dicyclomine [Bentyl] 20 mg PO QID 5 Days #20 tablet 01/29/22 Ondansetron Odt [Zofran Odt] 4 mg PO Q8HR PRN #10 tab 04/15/22 Allergies Allergy/AdvReac Type Severity Reaction Status Date / Time Penicillins Allergy Severe Swelling Verified 04/15/22 19:24 Review of Systems ROS Statement: Those systems with pertinent positive or pertinent negative responses have been documented in the HPI. ROS Other: All systems not noted in ROS Statement are negative. Past Medical History Past Medical History: Cancer, Deep Vein Thrombosis (DVT), GERD/Reflux, Musculoskeletal Disorder, Rheumatoid Arthritis (RA), Skin Disorder, Thyroid Disorder Additional Past Medical History / Comment(s): hx colon cancer 2009, chemo completed, BLOOD CLOT IN ABDOMEN AFTER BOWEL SURG, NEUROPATHY forrest legs/feet, restless leg, palpitations, elevated liver enzymes-dr. cesar. Chronic back pain, bulging disc, fx. Spider bites lt arm, History of Any Multi-Drug Resistant Organisms: None Reported Past Surgical History: Bladder Surgery, Bowel Resection, Hysterectomy, Tonsillectomy, Tubal Ligation Additional Past Surgical History / Comment(s): Cervical fusion C-5,6,7. Pain procedures Past Anesthesia/Blood Transfusion Reactions: Family History of Problems w/ Anesthesia, Motion Sickness Additional Past Anesthesia/Blood Transfusion Reaction / Comment(s): MOTHER HAS PONV Past Psychological History: Depression Smoking Status: Never smoker Past Alcohol Use History: Occasional Past Drug Use History: None Reported - Past Family History Father Family Medical History: Cancer General Exam Limitations: no limitations (Well-developed, well-nourished female in no acute distress. Initial temperature 98.2, pulse 76, respirations 16, blood pressure 109/77, pulse ox 97% on room air.) General appearance: alert, in no apparent distress Eye exam: Present: normal appearance. Absent: scleral icterus, conjunctival injection, periorbital swelling, periorbital tenderness ENT exam: Present: normal exam, normal oropharynx, mucous membranes moist Neck exam: Present: normal inspection. Absent: lymphadenopathy Respiratory exam: Present: normal lung sounds bilaterally. Absent: respiratory distress, wheezes, rales, rhonchi, stridor, chest wall tenderness Cardiovascular Exam: Present: regular rate, normal rhythm, normal heart sounds GI/Abdominal exam: Present: soft, normal bowel sounds. Absent: distended, tenderness, guarding, rebound, rigid Extremities exam: Present: normal inspection, normal capillary refill. Absent: pedal edema Back exam: Absent: CVA tenderness (R), CVA tenderness (L) Neurological exam: Present: alert, oriented X3, CN II-XII intact Psychiatric exam: Present: normal affect, normal mood Skin exam: Present: warm, dry, intact, normal color. Absent: rash Course Vital Signs 04/15/22 04/15/22 04/15/22 19:22 22:32 23:38 Temperature 98.2 F 98.1 F Pulse Rate 76 78 67 Respiratory 16 19 Rate Blood Pressure 109/77 123/78 103/65 O2 Sat by Pulse 97 98 Oximetry - Reevaluation(s) Reevaluation #1: 04/15/22 23:00 Upon reassessment, patient reports modest improvement. She has been pain-free throughout her stay. No episodes of vomiting or diarrhea while present in the emergency department. She'll be discharged home to follow-up with her PCP and GI as scheduled. Zofran will be prescribed for nausea. Medical Decision Making - Medical Decision Making 56-year-old female with a past medical history of colon cancer, bowel resection, bladder surgery, hysterectomy, and back surgery presents to the emergency department for evaluation of ongoing nausea and vomiting, onset December. Upon exam, patient is well-appearing and in no acute distress. Her physical exam findings are unremarkable. Vital signs are stable. Laboratory studies were reviewed showing mildly elevated liver enzymes which are normal for patient. Patient has had an ultrasound and CT done outpatient with no significant findings. Patient was given IV fluids and Zofran with improvement. Has an appointment with GI scheduled next month. States she has followed up with her PCP who feels that this is likely gallbladder in nature, though has not yet obtained a HIDA scan. Patient will be discharged home with a prescription for Zofran and instructions to follow up as scheduled. Return parameters discussed in detail. Patient and spouse verbalized understanding and agreed with this plan. Attending: Sage. - Lab Data Result diagrams: 04/15/22 20:29 04/15/22 20:29 Lab Results 04/15/22 04/15/22 04/15/22 Range/Units 20:29 20:29 22:00 WBC 7.8 (3.8-10.6) k/uL RBC 4.60 (3.80-5.40) m/uL Hgb 12.8 (11.4-16.0) gm/dL Hct 41.5 (34.0-46.0) % MCV 90.1 (80.0-100.0) fL MCH 27.8 (25.0-35.0) pg MCHC 30.9 L (31.0-37.0) g/dL RDW 12.1 (11.5-15.5) % Plt Count 223 (150-450) k/uL MPV 7.0 Neutrophils % 70 % Lymphocytes % 20 % Monocytes % 7 % Eosinophils % 2 % Basophils % 1 % Neutrophils # 5.4 (1.3-7.7) k/uL Lymphocytes # 1.5 (1.0-4.8) k/uL Monocytes # 0.5 (0-1.0) k/uL Eosinophils # 0.1 (0-0.7) k/uL Basophils # 0.1 (0-0.2) k/uL Sodium 139 (137-145) mmol/L Potassium 3.8 (3.5-5.1) mmol/L Chloride 106 (98-107) mmol/L Carbon Dioxide 27 (22-30) mmol/L Anion Gap 6 mmol/L BUN 8 (7-17) mg/dL Creatinine 0.83 (0.52-1.04) mg/dL Est GFR (CKD-EPI)AfAm >90 (>60 ml/min/1.73 sqM) Est GFR (CKD-EPI)NonAf 81 (>60 ml/min/1.73 sqM) Glucose 96 (74-99) mg/dL Calcium 9.5 (8.4-10.2) mg/dL Total Bilirubin 0.8 (0.2-1.3) mg/dL AST 54 H (14-36) U/L ALT 39 H (4-34) U/L Alkaline Phosphatase 124 (38-126) U/L Total Protein 7.6 (6.3-8.2) g/dL Albumin 4.3 (3.5-5.0) g/dL Amylase 46 (30-110) U/L Lipase 199 (23-300) U/L Urine Color Yellow Urine Appearance Cloudy H (Clear) Urine pH 5.5 (5.0-8.0) Ur Specific [place] 1.021 (1.001-1.035) Urine Protein Trace H (Negative) Urine Glucose (UA) Negative (Negative) Urine Ketones Negative (Negative) Urine Blood Negative (Negative) Urine Nitrite Negative (Negative) Urine Bilirubin Negative (Negative) Urine Urobilinogen <2.0 (<2.0) mg/dL Ur Leukocyte Esterase Negative (Negative) Urine RBC 1 (0-5) /hpf Urine WBC 2 (0-5) /hpf Ur Squamous Epith Cells 9 H (0-4) /hpf Calcium Oxalate Crystal Moderate H (None) /hpf Urine Bacteria Occasional H (None) /hpf Urine Mucus Many H (None) /hpf Disposition Clinical Impression: Nausea & vomiting Disposition: HOME SELF-CARE Condition: Stable Instructions (If sedation given, give patient instructions): Acute Nausea and Vomiting (ED) Additional Instructions: Take Zofran if needed for nausea. Eat small, frequent meals. Avoid greasy, fatty, and spicy foods. Please keep all follow up appointments as scheduled. Return to the emergency department with any new, worsening, or concerning symptoms. Prescriptions: Ondansetron Odt [Zofran Odt] 4 mg PO Q8HR PRN #10 tab PRN Reason: Nausea Is patient prescribed a controlled substance at d/c from ED?: No Referrals: Rafaela Ott DO [Primary Care Provider] - 1-2 days Javi Warren MD [Medical Doctor] - 1-2 days Time of Disposition: 23:05
[2022-04-15 21:04] LABS: Basophils # (A) 0.1 k/uL (0-0.2); Basophils % (A) 1 %; Eosinophils # (A) 0.1 k/uL (0-0.7); Eosinophils % (A) 2 %; HCT 41.5 % (34.0-46.0); HGB 12.8 gm/dL (11.4-16.0); Lymphocytes # (A) 1.5 k/uL (1.0-4.8); Lymphocytes % (A) 20 %; MCH 27.8 pg (25.0-35.0); MCHC 30.9 g/dL (31.0-37.0); MCV 90.1 fL (80.0-100.0); Monocytes # (A) 0.5 k/uL (0-1.0); Monocytes % (A) 7 %; Neutrophils # (A) 5.4 k/uL (1.3-7.7); Neutrophils % (A) 70 %; Platelet Count 223 k/uL (150-450); RDW 12.1 % (11.5-15.5); WBC 7.8 k/uL (3.8-10.6)
[2022-04-15 21:24] LABS: ALT 39 U/L (4-34); AST 54 U/L (14-36); African American GFR (CKD) >90 (>60 ml/min/1.73 sqM); Albumin 4.3 g/dL (3.5-5.0); Alkaline Phosphatase 124 U/L (38-126); Amylase 46 U/L (30-110); Anion Gap 6 mmol/L; Blood Urea Nitrogen 8 mg/dL (7-17); Calcium 9.5 mg/dL (8.4-10.2); Carbon Dioxide 27 mmol/L (22-30); Chloride 106 mmol/L (98-107); Glucose 96 mg/dL (74-99); Lipase 199 U/L (23-300); Non-African American GFR(CKD) 81 (>60 ml/min/1.73 sqM); Potassium 3.8 mmol/L (3.5-5.1); Sodium 139 mmol/L (137-145); Total Bilirubin 0.8 mg/dL (0.2-1.3); Total Protein 7.6 g/dL (6.3-8.2)
[2022-04-15 22:26] LABS: Appearance,Urine Cloudy (Clear); Bacteria,Urine Occasional /hpf; Bilirubin,Urine Negative (Negative); Blood,Urine Negative (Negative); Calcium Oxalate Crystals,Urine Moderate /hpf; Color,Urine Yellow; Glucose,Urine (UA) Negative (Negative); Ketones,Urine Negative (Negative); Leukocyte Esterase,Urine Negative (Negative); Mucus,Urine Many /hpf; Nitrite,Urine Negative (Negative); PH, Urine 5.5 (5.0-8.0); Protein,Urine Trace (Negative); RBC,Urine 1 /hpf (0-5); Specific Gravity,Urine 1.021 (1.001-1.035); Squamous Epithelial Cell,Urine 9 /hpf (0-4); Urobilinogen,Urine <2.0 mg/dL (<2.0); WBC,Urine 2 /hpf (0-5)
[2022-04-15 23:39] VITALS: BP 103/65; PULSE 67; RESP 19; TEMP 98.1
== END 2022-04-15 23:39 | disposition home or self-care (01) ==
LOC: EC 19:16
DX: R11.2 Nausea with vomiting, unspecified (principal); R10.9 Unspecified abdominal pain; R19.7 Diarrhea, unspecified; R74.8 Abnormal levels of other serum enzymes; K21.9 Gastro-esophageal reflux disease without esophagitis; Z88.0 Allergy status to penicillin; Z79.899 Other long term (current) drug therapy
CPT/HCPCS: 36415; 80053; 82150; 83690; 85025; 81001; 99284; 96374; 96376; 96361; J2405

== ENCOUNTER → 2022-05-17 | Outpatient (CLI) | payer OTHER ==
--- NOTE | 2022-05-17 14:55 | NM ---
EXAMINATION TYPE: NM hepatobiliary w CCK DATE OF EXAM: 05/17/2022 COMPARISON: NONE HISTORY: R11.2 nausea with vomiting TECHNIQUE: After the intravenous administration of 4.2 mCi Tc 99m Mebrofenin hepatobiliary scintigrap hy is performed. Immediate images post injection. FINDINGS: There is satisfactory initial accumulation of tracer by the liver. The gallbladder is visualized wit hin 12 minutes. The small bowel activity is noted within 30 minutes. At one hour CCK was administe red, patient was injected with 2.0 mcg of Kinevac, and gallbladder ejection fraction is calculated at 92%. IMPRESSION: The findings suggest hypercontractile state.
== END | disposition home or self-care (01) ==
LOC: RADNMMAIN 12:38
PROVIDERS: ATTEND Internal Medicine Gastroenterology
DX: R11.2 Nausea with vomiting, unspecified (principal)
CPT/HCPCS: 78227; A9537; J2805

== ENCOUNTER → 2022-07-24 | Outpatient (CLI) | payer OTHER ==
--- NOTE | 2022-07-25 08:26 | MM ---
Reason for Exam: Screening (asymptomatic). Last mammogram was performed 2 year(s) and 10 month(s) ago. Patient History: Menarche at age 14. First Full-Term at age 18. Left ovary removed at age 52. Right ovary removed at age 52. Hysterectomy at age 52. Postmenopausal. Colorectal cancer, age 43. Patient used Hormonal Contraceptives for 20 years. Paternal grandmother had breast cancer, age 72. Risk Values: Carmen 5 year model risk: 0.8%. NCI Lifetime model risk: 6.0%. Prior Study Comparison: 01/05/2011 Screening Mammogram, [facility]. 02/24/2014 Screening Mammogram, [facility]. 09/15/2019 Bilateral Screening Mammogram, [facility]. Tissue Density: There are scattered fibroglandular densities. Findings: Analyzed By CAD. There is no suspicious group of microcalcifications or new suspicious mass in either breast. Overall Assessment: Negative, BI-RAD 1 Management: Screening Mammogram of both breasts in 1 year. A clinical breast exam by your physician is recommended on an annual basis and results should be correlated with mammographic findings. Electronically signed and approved by: Dane Johnson M.D. Radiologis
== END | disposition home or self-care (01) ==
LOC: RADMAMWWP 10:34
PROVIDERS: ATTEND Family Medicine
DX: Z12.31 Encounter for screening mammogram for malignant neoplasm of breast (principal); Z78.0 Asymptomatic menopausal state; Z80.3 Family history of malignant neoplasm of breast
CPT/HCPCS: 77067

== ENCOUNTER 2023-03-17 00:17 | Observation (INO) | payer OTHER ==
[2023-03-17 01:17] LABS: Basophils % (A) 0 %; Eosinophils # (A) 0.1 k/uL (0-0.7); Eosinophils % (A) 1 %; HCT 35.9 % (34.0-46.0); HGB 11.8 gm/dL (11.4-16.0); Lymphocytes # (A) 1.1 k/uL (1.0-4.8); Lymphocytes % (A) 12 %; MCH 28.4 pg (25.0-35.0); Monocytes # (A) 0.5 k/uL (0-1.0); Monocytes % (A) 6 %; Neutrophils # (A) 6.9 k/uL (1.3-7.7); Neutrophils % (A) 79 %; Platelet Count 190 k/uL (150-450); RBC 4.17 m/uL (3.80-5.40); WBC 8.8 k/uL (3.8-10.6)
[2023-03-17 01:33] LABS: ALT 25 U/L (4-34); AST 32 U/L (14-36); African American GFR (CKD) >90 (>60 ml/min/1.73 sqM); Alkaline Phosphatase 110 U/L (38-126); Anion Gap 10 mmol/L; Blood Urea Nitrogen 14 mg/dL (7-17); Calcium 8.9 mg/dL (8.4-10.2); Carbon Dioxide 25 mmol/L (22-30); Chloride 103 mmol/L (98-107); Glucose 159 mg/dL (74-99); Magnesium 1.8 mg/dL (1.6-2.3); Non-African American GFR(CKD) >90 (>60 ml/min/1.73 sqM); Potassium 3.5 mmol/L (3.5-5.1); Sodium 138 mmol/L (137-145); Total Bilirubin 0.7 mg/dL (0.2-1.3); Total Protein 7.1 g/dL (6.3-8.2)
--- NOTE | 2023-03-17 01:51 | XR ---
EXAM: XR Chest, 1 View CLINICAL HISTORY: Syncope TECHNIQUE: Frontal view of the chest. COMPARISON: CT chest 08/28/2019. FINDINGS: Lungs: No infiltrate. No atelectasis. No CHF. Pleural space: No pleural effusion. No pneumothorax. Heart: Borderline cardiomegaly. Mediastinum: Unremarkable. Bones/joints: Lower cervical fusion hardware. IMPRESSION: No acute abnormality.
--- NOTE | 2023-03-17 01:53 | CT ---
EXAM: CT Head Without Intravenous Contrast CLINICAL HISTORY: Syncope TECHNIQUE: Axial computed tomography images of the head/brain without intravenous contrast. CTDI is 49.2 mGy and DLP is 1099.4 mGy-cm. This CT exam was performed using one or more of the following dose reduction techniques: automated exposure control, adjustment of the mA and/or kV according to patient size, and/or use of iterative reconstruction technique. COMPARISON: MRI brain 04/13/2013. FINDINGS: Brain: No acute stroke. No hemorrhage. No abnormal extra-axial fluid collection. No significant white matter disease. Ventricles: No hydrocephalus. No midline shift. Bones/joints: Unremarkable. No acute fracture. Soft tissues: Unremarkable. Sinuses: Unremarkable as visualized. No acute sinusitis. IMPRESSION: No acute abnormality.
[2023-03-17] MEDS ORDERED: SODIUM CHLORIDE 0.9% 1,000 ML IV ONE (02:04)
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
[2023-03-17] MEDS ORDERED: NALOXONE 0.4 MG/ML 1 ML VIAL IV PRN (03:07)
[2023-03-17] MEDS ORDERED: SODIUM CHLORIDE 0.9% 1,000 ML IV SCH (03:15)
[2023-03-17] MEDS ORDERED: PANTOPRAZOLE 40 MG TABLET PO SCH ×2 (09:15→21:00)
--- NOTE | 2023-03-17 14:58 | P.CRDCN ---
History of Present Illness Consult date: 03/17/23 Consult reason: sycope History of present illness: The patient is a 57-year-old female who presented to the emergency room after having a prolonged syncopal episode. The patient states she has a past history of dizziness and syncope. She often has a prodrome of dizziness or visual disturbances, which will allow her to sit down and prevent complete sink be. She also states that it is often associated with stomach upset and recently happened last month with the episode of vomiting. The patient states she has never seen a lemon picker for this condition, but was told recently that she had a low ejection fraction at 45% by her primary care provider. The patient also states she's been struggling with lower extremity edema and has had several episodes of chest discomfort. Her most recent episode of chest discomfort within her right anterior chest wall. DIAGNOSTICS: EKG shows sinus mechanism without ST or T-wave abnormalities Chest x-ray shows no acute cardiopulmonary process Vitals: Blood pressure 110/72, pulse 78, respiratory rate 18, SpO2 90% on room air Lab data: WBC 8.8, hemoglobin 11.8, hematocrit 35.9, platelets 190, sodium 138, potassium 3.5, BUN 14, creatinine 0.71, hemoglobin A1c 6.0, magnesium 1.8, AST 32, ALT 25, troponin less than 0.012, TSH 2.8, BNP 52 PAST MEDICAL HISTORY: Syncope, hypothyroid, osteoporosis REVIEW OF SYSTEMS: No fever or chills. No cough or expectoration. No diaphoresis. Patient denies headache, dizziness, blurred vision, double vision. Patient denies any stomach discomfort. No nausea, vomiting. No hematochezia. No hematemesis. Denies any black stools or blood in his stools. Denies dysuria or hematuria. No muscle weakness or numbness. No chest pain or chest pressure No dyspnea. PHYSICAL EXAMINATION: This is a 57-year-old female in no apparent distress at the time of my examination. HEENT: Head is atraumatic, normocephalic. Pupils are equal, round. Sclerae anicteric. Conjunctivae are clear. Mucous membranes of the mouth are moist. Neck is supple. There is no jugular venous distention. No carotid bruit is heard. CHEST EXAMINATION: Lungs are clear to auscultation. No chest wall tenderness is noted on palpation or with deep breathing. HEART EXAMINATION: Heart regular rate and rhythm. S1, S2 heard. No murmurs, gallops or rub. ABDOMEN: Soft, nontender. Bowel sounds are heard. No organomegaly noted. EXTREMITIES: 2+ peripheral pulses with no evidence of peripheral edema and no calf tenderness noted. NEUROLOGIC EXAMINATION: Patient is awake, alert and oriented x3. FINAL ASSESSMENT AND PLAN: Syncope and collapse, likely vasovagal/hypervagotonia Chest discomfort History of hypothyroidism Edema PLAN: Obtain EKG/telemetry readings from EMS transport Echocardiogram and Doppler study to assess LV function If LV function is reduced, proceed with stress testing Consideration for Loop monitor implant prior to discharge Further recommendations based on clinical course I am dictating on behalf of Dr Larry Harper's history/physical and assessment/plan. Past Medical History Past Medical History: Cancer, Deep Vein Thrombosis (DVT), GERD/Reflux, Musculoskeletal Disorder, Rheumatoid Arthritis (RA), Skin Disorder, Thyroid Diso rder Additional Past Medical History / Comment(s): hx colon cancer 2009, chemo completed, BLOOD CLOT IN ABDOMEN AFTER BOWEL SURG, NEUROPATHY forrest legs/feet, restless leg, palpitations, elevated liver enzymes- monitoring. Chronic back pain, bulging disc, fx. Spider bites lt arm, History of Any Multi-Drug Resistant Organisms: None Reported Past Surgical History: Bladder Surgery, Bowel Resection, Hysterectomy, Tonsillectomy, Tubal Ligation Additional Past Surgical History / Comment(s): Cervical fusion C-5,6,7. Pain procedures Past Anesthesia/Blood Transfusion Reactions: Family History of Problems w/ Anesthesia, Motion Sickness Additional Past Anesthesia/Blood Transfusion Reaction / Comment(s): MOTHER HAS PONV Past Psychological History: Depression Smoking Status: Never smoker Past Alcohol Use History: Occasional Past Drug Use History: None Reported - Past Family History Father Family Medical History: Cancer Medications and Allergies Home Medications Medication Instructions Recorded Confirmed Type Pramipexole [Mirapex] 2 mg PO HS 08/14/19 03/17/23 History Acetaminophen/Diphenhydramine 2 tab PO HS 03/17/23 03/17/23 History [Tylenol PM 500-25mg] Alendronate Sodium [Fosamax] 10 mg PO DAILY 03/17/23 03/17/23 History Amitriptyline HCl 25 mg PO HS 03/17/23 03/17/23 History Ammonium Lactate Cream [Lac-Hydrin 1 applic TOPICAL DAILY PRN 03/17/23 03/17/23 History 12% Cream] Diclofenac Sodium Gel [Voltaren 1 gm TOPICAL QID PRN 03/17/23 03/17/23 History Gel] Furosemide [Lasix] 20 mg PO DAILY 03/17/23 03/17/23 History Levothyroxine Sodium [Synthroid] 200 mcg PO DAILY 03/17/23 03/17/23 History Potassium Chloride ER [K-Dur 10] 10 meq PO DAILY 03/17/23 03/17/23 History Allergies Allergy/AdvReac Type Severity Reaction Status Date / Time Penicillins Allergy Severe Swelling Verified 03/17/23 13:34 Physical Exam Vitals: Vital Signs Temp Pulse Resp BP Pulse Ox 03/17/23 12:00 78 18 110/72 98 03/17/23 11:00 77 18 109/69 98 03/17/23 10:00 71 18 105/66 94 L 03/17/23 09:00 68 18 117/73 97 03/17/23 07:26 97.1 F L 77 16 108/68 99 03/17/23 07:00 62 17 110/69 99 03/17/23 06:30 59 L 18 107/66 100 03/17/23 06:00 61 18 104/70 98 03/17/23 05:30 62 17 110/67 98 03/17/23 05:00 66 17 106/63 98 03/17/23 04:30 62 18 106/67 97 03/17/23 04:00 63 17 108/66 99 03/17/23 03:30 74 17 117/79 96 03/17/23 03:00 67 18 117/75 100 03/17/23 02:30 69 16 109/71 100 03/17/23 02:00 114/72 03/17/23 01:30 58 L 16 96/69 03/17/23 01:00 91/59 03/17/23 00:42 62 17 102/59 03/17/23 00:25 65 18 102/65 98 Intake and Output 03/16/23 03/17/23 03/17/23 22:59 06:59 14:59 Other: Weight 108.409 kg Results 03/17/23 01:03 03/17/23 01:03 Cardiac Enzymes 03/17/23 03/17/23 Range/Units 01:03 01:03 AST 32 (14-36) U/L Troponin I <0.012 (0.000-0.034) ng/mL CBC 03/17/23 Range/Units 01:03 WBC 8.8 (3.8-10.6) k/uL RBC 4.17 (3.80-5.40) m/uL Hgb 11.8 (11.4-16.0) gm/dL Hct 35.9 (34.0-46.0) % Plt Count 190 (150-450) k/uL Comprehensive Metabolic Panel 03/17/23 Range/Units 01:03 Sodium 138 (137-145) mmol/L Potassium 3.5 (3.5-5.1) mmol/L Chloride 103 (98-107) mmol/L Carbon Dioxide 25 (22-30) mmol/L BUN 14 (7-17) mg/dL Creatinine 0.71 (0.52-1.04) mg/dL Glucose 159 H (74-99) mg/dL Calcium 8.9 (8.4-10.2) mg/dL AST 32 (14-36) U/L ALT 25 (4-34) U/L Alkaline Phosphatase 110 (38-126) U/L Total Protein 7.1 (6.3-8.2) g/dL Albumin 4.0 (3.5-5.0) g/dL Current Medications Generic Name Dose Route Start Last Admin Trade Name Freq PRN Reason Stop Dose Admin Sodium Chloride 1,000 mls @ 75 mls/hr 03/17/23 03:15 03/17/23 05:29 Saline 0.9% IV 75 mls/hr .[id number] BROOK Administration Naloxone HCl 0.2 mg 03/17/23 03:07 Naloxone 0.4 Mg/Ml 1 Ml Vial IV Q2M PRN Opioid Reversal Pantoprazole Sodium 40 mg 03/17/23 21:00 Pantoprazole 40 Mg Tablet PO HS BROOK Intake and Output 03/16/23 03/17/23 03/17/23 22:59 06:59 14:59 Other: Weight 108.409 kg 03/17/23 01:03 03/17/23 01:03
[2023-03-17] MEDS: SODIUM CHLORIDE 0.9% 1,000 ML IV SCH (16:43)
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
[2023-03-17] MEDS ORDERED: AMITRIPTYLINE HCL 25 MG TAB PO SCH (21:00)
[2023-03-17] MEDS ORDERED: PRAMIPEXOLE 1 MG TAB PO SCH (21:00)
[2023-03-17 21:01] LABS: Chol/HDL Ratio 2.39 Ratio; LDL Cholesterol,Calculated 77.9 mg/dL (0.0-131.0); VLDL Calculation 14.14 mg/dL (5.00-40.00)
[2023-03-17 23:48] VITALS: RESP 17
[2023-03-18] MEDS ORDERED: LEVOTHYROXINE 100 MCG TAB PO SCH (06:30)
[2023-03-18] MEDS ORDERED: POTASSIUM CHLORIDE ER 10 MEQ TAB.ER.PRT PO SCH (09:00)
[2023-03-18] MEDS ORDERED: FUROSEMIDE 20 MG TAB PO SCH (09:00)
--- NOTE | 2023-03-18 10:23 | CA ---
Transthoracic Echo Report Name: Estella Silva Age: 57 Gender: F : 1965 Exam Date: 03/18/2023 07:33 Exam Location: [facility] Ht (in): 65 Wt (lb): 239 Ordering Physician: Jalyn Lilly Attending/Referring Phys: [id number], [employer] Senior Assistant Manager Abeba Conte, RDCS Procedure CPT: Indications: Syncope Cardiac Hx: Technical Quality: Good Contrast 1: Total Dose (mL): Contrast 2: Total Dose (mL): MEASUREMENTS (Male / Female) Normal Values 2D ECHO LV Diastolic Diameter PLAX 4.4 cm 4.2 - 5.9 / 3.9 - 5.3 cm LV Systolic Diameter PLAX 3.0 cm IVS Diastolic Thickness 1.0 cm 0.6 - 1.0 / 0.6 - 0.9 cm LVPW Diastolic Thickness 1.0 cm 0.6 - 1.0 / 0.6 - 0.9 cm LV Relative Wall Thickness 0.5 RV Internal Dim ED PLAX 2.9 cm LA Systolic Diameter LX 3.6 cm 3.0 - 4.0 / 2.7 - 3.8 cm LA Volume 45.8 cm??? 18 - 58 / 22 - 52 cm??? M-MODE Aortic Root Diameter MM 2.9 cm MV E Point Septal Separation 0.4 cm AV Cusp Separation MM 2.5 cm DOPPLER AV Peak Velocity 121.5 cm/s AV Peak Gradient 5.9 mmHg MV Area PHT 2.9 cm??? Mitral E Point Velocity 52.4 cm/s Mitral A Point Velocity 51.8 cm/s Mitral E to A Ratio 1.0 MV Deceleration Time 260.8 ms MV E' Velocity 12.2 cm/s Mitral E to MV E' Ratio 4.3 TR Peak Velocity 214.4 cm/s TR Peak Gradient 18.4 mmHg Right Ventricular Systolic Press 22.9 mmHg FINDINGS Left Ventricle Left ventricular ejection fraction is estimated at 55-60 %. Left ventricular cavity size normal. Left ventricular wall thickness normal. Normal left ventricular wall motion. Right Ventricle Normal right ventricular size and function. Right ventricular systolic pressure within normal limits. Right Atrium Normal right atrial size. Left Atrium Normal left atrial size. Mitral Valve Structurally normal mitral valve. No mitral stenosis, regurgitation or prolapse. Aortic Valve Trileaflet aortic valve. No aortic valve stenosis or regurgitation. Tricuspid Valve Structurally normal tricuspid valve. No tricuspid stenosis, regurgitation or prolapse. Pulmonic Valve Structurally normal pulmonic valve. No pulmonic regurgitation. Pericardium Normal pericardium. Aorta Normal size aortic root and proximal ascending aorta. CONCLUSIONS Normal left ventricular size and systolic function. No significant abnormality on the Doppler exam. No pericardial effusion Previewed by: Dr. Errol Theodore MD (Electronically Signed) Final Date: 18 Mar 2023 10:22
--- NOTE | 2023-03-18 14:14 | P.PN ---
Subjective Progress Note Date: 03/18/23 History of present illness: The patient is a 57-year-old female who presented to the emergency room after having a prolonged syncopal episode. The patient states she has a past history of dizziness and syncope. She often has a prodrome of dizziness or visual disturbances, which will allow her to sit down and prevent complete sink be. She also states that it is often associated with stomach upset and recently happened last month with the episode of vomiting. The patient states she has never seen a refrigeration manager for this condition, but was told recently that she had a low ejection fraction at 45% by her primary care provider. The patient also states she's been struggling with lower extremity edema and has had several episodes of chest discomfort. Her most recent episode of chest discomfort within her right anterior chest wall. DIAGNOSTICS: EKG shows sinus mechanism without ST or T-wave abnormalities Chest x-ray shows no acute cardiopulmonary process Vitals: Blood pressure 110/72, pulse 78, respiratory rate 18, SpO2 90% on room air Lab data: WBC 8.8, hemoglobin 11.8, hematocrit 35.9, platelets 190, sodium 138, potassium 3.5, BUN 14, creatinine 0.71, hemoglobin A1c 6.0, magnesium 1.8, AST 32, ALT 25, troponin less than 0.012, TSH 2.8, BNP 52 PAST MEDICAL HISTORY: Syncope, hypothyroid, osteoporosis 03/18 Patient is seen today in follow-up. She is scheduled for tilt table test today. Echocardiogram reveals normal left ventricle size and systolic function. No significant abnormality. No pericardial effusion. PHYSICAL EXAMINATION: This is a 57-year-old female in no apparent distress at the time of my examination. HEENT: Head is atraumatic, normocephalic. Pupils are equal, round. Sclerae anicteric. Conjunctivae are clear. Mucous membranes of the mouth are moist. Neck is supple. There is no jugular venous distention. No carotid bruit is heard. CHEST EXAMINATION: Lungs are clear to auscultation. No chest wall tenderness is noted on palpation or with deep breathing. HEART EXAMINATION: Heart regular rate and rhythm. S1, S2 heard. No murmurs, gallops or rub. ABDOMEN: Soft, nontender. Bowel sounds are heard. No organomegaly noted. EXTREMITIES: 2+ peripheral pulses with no evidence of peripheral edema and no calf tenderness noted. NEUROLOGIC EXAMINATION: Patient is awake, alert and oriented x3. FINAL ASSESSMENT AND PLAN: Syncope and collapse, likely vasovagal/hypervagotonia Chest discomfort History of hypothyroidism Edema PLAN: Patient is scheduled today for tilt table test, recommendations to be made by Dr. Harper following testing Consideration for Loop monitor implant prior to discharge Further recommendations based on clinical course Nurse practitioner note has been reviewed, I agree with the documented findings and plan of care. Patient was seen and examined. Objective - Vital Signs Vital signs: Vital Signs Temp 97.7 F 03/18/23 08:00 Pulse 79 03/18/23 08:00 Resp 17 03/18/23 08:00 BP 109/67 03/18/23 08:00 Pulse Ox 98 03/18/23 08:00 FiO2 Intake & Output 03/17/23 03/18/23 03/18/23 18:59 06:59 18:59 Weight 108.409 kg Other: Voiding Method Toilet # Voids 2 - Labs CBC & Chem 7: 03/17/23 01:03 03/17/23 01:03 Labs: Abnormal Lab Results - Last 24 Hours (Table) 03/17/23 Range/Units 01:03 HDL Cholesterol 66.00 H (40.00-60.00) mg/dL
[2023-03-18 15:27] VITALS: BP 108/65; PULSE 71; TEMP 98.1
--- NOTE | 2023-03-18 16:22 | P.DS ---
Providers Date of admission: 03/17/23 03:07 Expected date of discharge: 03/18/23 Attending physician: Aiden Hilario MD Consults: 03/17/23 03:07 Consult Physician Routine Consulting Provider: [facility] Consult Reason/Comments: Syncope, CP Do you want consulting provider notified?: Yes, Notify in am Primary care physician: Rafaela Ott [facility] Course: Final Diagnoses: Syncope and collapse, likely vasovagal/hypervagotonia Chest discomfort Bilateral lower extremity neuropathy Hypothyroidism Osteoporosis Hospital course: This a 57-year-old female presented to the ER status post syncopal event while at rest, sitting up in a chair, lower extremity neuropathy/ bilateral feet edema, chest discomfort and multiple other medical issues. Evaluated by cardiology. Echo reported normal LV function, no pericardial effusion.Tilt table test scheduled for today with potential monitor implant prior to discharge. Patient will be discharged home today in a stable condition with guarded prognosis pending tilt table test results, final DC recommendations and clearance per cardiology. The impression and plan of care has been dictated as directed. : I performed a history and examination of this patient, discussed the same with the dictator. I agree with the dictator's note ,documented as a scribe. Any additional findings or plans will be noted. Patient Condition at Discharge: Stable Plan - Discharge Summary New Discharge Prescriptions: New Pantoprazole [Protonix] 40 mg PO HS #30 tab Continue Pramipexole [Mirapex] 2 mg PO HS Furosemide [Lasix] 20 mg PO DAILY Ammonium Lactate Cream [Lac-Hydrin 12% Cream] 1 applic TOPICAL DAILY PRN PRN Reason: Dry Skin Levothyroxine Sodium [Synthroid] 200 mcg PO DAILY Alendronate Sodium [Fosamax] 10 mg PO DAILY Potassium Chloride ER [K-Dur 10] 10 meq PO DAILY Diclofenac Sodium Gel [Voltaren Gel] 1 gm TOPICAL QID PRN PRN Reason: Pain Amitriptyline HCl 25 mg PO HS Acetaminophen/Diphenhydramine [Tylenol PM 500-25mg] 2 tab PO HS Discharge Medication List Pramipexole [Mirapex] 2 mg PO HS 08/14/19 [History] Acetaminophen/Diphenhydramine [Tylenol PM 500-25mg] 2 tab PO HS 03/17/23 [History] Alendronate Sodium [Fosamax] 10 mg PO DAILY 03/17/23 [History] Amitriptyline HCl 25 mg PO HS 03/17/23 [History] Ammonium Lactate Cream [Lac-Hydrin 12% Cream] 1 applic TOPICAL DAILY PRN 03/17/23 [History] Diclofenac Sodium Gel [Voltaren Gel] 1 gm TOPICAL QID PRN 03/17/23 [History] Furosemide [Lasix] 20 mg PO DAILY 03/17/23 [History] Levothyroxine Sodium [Synthroid] 200 mcg PO DAILY 03/17/23 [History] Potassium Chloride ER [K-Dur 10] 10 meq PO DAILY 03/17/23 [History] Pantoprazole [Protonix] 40 mg PO HS #30 tab 03/18/23 [Rx] Follow up Appointment(s)/Referral(s): Larry Harper MD [STAFF PHYSICIAN] - 2 Weeks Christos Ott DO [REFERRING] - 1-2 days
[2023-03-18] MEDS ORDERED: SODIUM CHLORIDE 0.9% 500 ML 500 ML IV ONE (18:35)
[2023-03-18] MEDS: SODIUM CHLORIDE 0.9% 1,000 ML IV SCH (19:15)
--- NOTE | 2023-03-18 19:37 | P.EPPROC ---
- EP Procedure Note Electrophysiology Procedure Note: Diagnosis Recurrent presyncope associated with sweatiness nausea and the typical prodrome One episode of loss of consciousness while sitting and absolutely no prodrome prior to that Twelve-lead EKG shows sinus rhythm normal [place] narrow QRS normal ST segments heart rate 59 beats a minute Tilt table test for protocol Baseline blood pressure 133/77 mmHg pulse rate 73 beats per minute Patient was tilted upright at an angle of 70 per protocol Patient started feeling sick to the stomach and at that time she started experiencing sinus tachycardia with a normal blood pressure Subsequently she started getting sweaty and stated that she will pass out Her blood pressure dropped to 86 mmHg and then down to 58 mmHg systolic. She was briefly syncopal Subsequently heart rate dropped down to 40 bpm There were no significant pauses or asystole noted. Mild secondary bradycardia, noted The patient stated that is this resembled her usual episodes almost completely Impression Normal twelve-lead EKG, normal d-dimer, normal electrolytes Normal cardiac enzymes Hemoglobin A1c 6.0 Obesity Neurocardiogenic syncope, typical However, this still does not explain why this patient lost consciousness without any prodrome, while sitting She was sitting in the chair for at least 15-20 minutes and then suddenly lost consciousness without any warning A 12-lead EKG shows normal cardiac intervals, no QT prolongation and no evidence for epsilon waves of Brugada morphology No J-point elevation no QRS fractionation Her 2-D echo and Doppler study show normal LV size and systolic function. There are no valvular abnormalities Add a detailed discussion with patient and her family members Irregular meals Low carbohydrate, increase protein and fat intake Avoid missing meals Increase fluid and salt intake Core body and lower extremity muscle strengthening exercises explained If she continues to have these episodes then the considerations include a diagnostic EP study to look for an arrhythmia/possible ablation as well as implantation of loop monitor
== END 2023-03-18 19:55 | disposition home or self-care (01) ==
LOC: EC 00:17 → 6NMEDSUR 03:07
PROVIDERS: ADMIT Family Medicine; ATTEND Family Medicine
DX: R55 Syncope and collapse (principal); R00.1 Bradycardia, unspecified; R07.89 Other chest pain; M06.9 Rheumatoid arthritis, unspecified; K21.9 Gastro-esophageal reflux disease without esophagitis; G25.81 Restless legs syndrome; G62.9 Polyneuropathy, unspecified; E03.9 Hypothyroidism, unspecified; M81.0 Age-related osteoporosis without current pathological fracture; R42 Dizziness and giddiness; R00.2 Palpitations; R60.0 Localized edema; R11.0 Nausea; G89.29 Other chronic pain; M54.9 Dorsalgia, unspecified; F32.A Depression, unspecified; E66.9 Obesity, unspecified; Z68.39 Body mass index [BMI] 39.0-39.9, adult; Z79.83 Long term (current) use of bisphosphonates; Z79.890 Hormone replacement therapy; Z79.899 Other long term (current) drug therapy; Z88.0 Allergy status to penicillin; Z86.718 Personal history of other venous thrombosis and embolism; Z85.038 Personal history of other malignant neoplasm of large intestine; Z92.21 Personal history of antineoplastic chemotherapy; Z90.710 Acquired absence of both cervix and uterus; Z98.1 Arthrodesis status; Z98.51 Tubal ligation status; Z90.49 Acquired absence of other specified parts of digestive tract; Z98.890 Other specified postprocedural states; Z80.9 Family history of malignant neoplasm, unspecified
CPT/HCPCS: 96360; 96361; 99285; 36415; 93005; 93306; 93660; 85379; 83880; 80061; 80053; 84443; 83605; 83735; 84484; 85025; 83036; 71045; 70450; G0378 ×2

== ENCOUNTER 2023-04-14 09:08 | Inpatient (IN) | payer OTHER ==
[2023-04-14] MEDS ORDERED: ONDANSETRON 4 MG/2 ML VIAL IVP STA ×2 (09:35→10:59)
[2023-04-14] MEDS ORDERED: NITROGLYCERIN OINT 1 INCH/GM PACKET TOPICAL STA (09:35)
[2023-04-14] MEDS ORDERED: SODIUM CHLORIDE 0.9% 500 ML 500 ML IV STA (09:35)
--- NOTE | 2023-04-14 09:45 | ED ---
General Adult HPI - General Chief complaint: Chest Pain Stated complaint: chest pains Time Seen by Provider: 04/14/23 09:25 Source: patient, RN notes reviewed, old records reviewed Mode of arrival: ambulatory Limitations: no limitations - History of Present Illness Initial comments: This is a 57-year-old female presents emergency Department complaining that last night she wasn't feeling good she was very nauseated. Patient states she eventually vomited this morning. Patient states she started getting chest pain across the top of her chest and down both arms and she also felt like her heart was racing. Patient states she also became very diaphoretic and continues to be nauseous. Patient states she's had an episode in the past where she passed out and she is being currently worked up and has a monitor on her heart at this time. Patient states the chest pain is still there now but is feeling much better. Patient denies any recent fever chills or cough per patient denies abdominal pain patient's nausea vomiting diarrhea. - Related Data Home Medications Medication Instructions Recorded Confirmed Pramipexole [Mirapex] 2 mg PO HS 08/14/19 03/17/23 Acetaminophen/Diphenhydramine 2 tab PO HS 03/17/23 03/17/23 [Tylenol PM 500-25mg] Alendronate Sodium [Fosamax] 10 mg PO DAILY 03/17/23 03/17/23 Amitriptyline HCl 25 mg PO HS 03/17/23 03/17/23 Ammonium Lactate Cream [Lac-Hydrin 1 applic TOPICAL DAILY PRN 03/17/23 03/17/23 12% Cream] Diclofenac Sodium Gel [Voltaren 1 gm TOPICAL QID PRN 03/17/23 03/17/23 Gel] Furosemide [Lasix] 20 mg PO DAILY 03/17/23 03/17/23 Levothyroxine Sodium [Synthroid] 200 mcg PO DAILY 03/17/23 03/17/23 Potassium Chloride ER [K-Dur 10] 10 meq PO DAILY 03/17/23 03/17/23 Previous Rx's Medication Instructions Recorded Pantoprazole [Protonix] 40 mg PO HS #30 tab 03/18/23 Allergies Allergy/AdvReac Type Severity Reaction Status Date / Time Penicillins Allergy Severe Swelling Verified 04/14/23 09:11 Review of Systems ROS Statement: Those systems with pertinent positive or pertinent negative responses have been documented in the HPI. ROS Other: All systems not noted in ROS Statement are negative. Past Medical History Past Medical History: Cancer, Deep Vein Thrombosis (DVT), GERD/Reflux, Musculoskeletal Disorder, Rheumatoid Arthritis (RA), Skin Disorder, Thyroid Diso rder Additional Past Medical History / Comment(s): hx colon cancer 2009, chemo completed, BLOOD CLOT IN ABDOMEN AFTER BOWEL SURG, NEUROPATHY forrest legs/feet, restless leg, palpitations, elevated liver enzymes-drAyana monitoring. Chronic back pain, bulging disc, fx. Spider bites lt arm, History of Any Multi-Drug Resistant Organisms: None Reported Past Surgical History: Bladder Surgery, Bowel Resection, Hysterectomy, Tonsillectomy, Tubal Ligation Additional Past Surgical History / Comment(s): Cervical fusion C-5,6,7. Pain procedures Past Anesthesia/Blood Transfusion Reactions: Family History of Problems w/ Anesthesia, Motion Sickness Additional Past Anesthesia/Blood Transfusion Reaction / Comment(s): MOTHER HAS PONV Past Psychological History: Depression Smoking Status: Never smoker Past Alcohol Use History: Occasional Past Drug Use History: None Reported - Past Family History Father Family Medical History: Cancer General Exam - General Exam Comments Initial Comments: GENERAL: Patient is well-developed and well-nourished. Patient is nontoxic and well- hydrated and is in mild distress. ENT: Neck is soft and supple. No significant lymphadenopathy is noted. Oropharynx is clear. Moist mucous membranes. Neck has full range of motion without eliciting any pain. EYES: The sclera were anicteric and conjunctiva were pink and moist. Extraocular movements were intact and pupils were equal round and reactive to light. Eyelids were unremarkable. PULMONARY: Unlabored respirations. Good breath sounds bilaterally. No audible rales rhonchi or wheezing was noted. CARDIOVASCULAR: There is a regular rate and rhythm without any murmurs gallops or rubs. ABDOMEN: Soft and nontender with normal bowel sounds. SKIN: Skin is clear with no lesions or rashes and otherwise unremarkable. NEUROLOGIC: Patient is alert and oriented x3. Cranial nerves II through XII are grossly intact. Motor and sensory are also intact. Normal speech, volume and content. Symmetrical smile. MUSCULOSKELETAL: Normal extremities with adequate strength and full range of motion. LYMPHATICS: No significant lymphadenopathy is noted PSYCHIATRIC: Normal psychiatric evaluation. 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 EKG shows sinus rhythm at 90 bpm OR interval 167 QRSs 103 QT interval 336 QTC is 384. Patient's ST segment elevation or depression. Was pt. sent in by a medical professional or institution (, PA, SLOT TAG INSERTER, urgent care, hospital, or snf...) When possible be specific @ -[No] Did you speak to anyone other than the patient for history (EMS, parent, family, police, friend...)? What history was obtained from this source @ -[No] Did you review nursing and triage notes (agree or disagree)? Why? @ -[I reviewed and agree with nursing and triage notes] Were old charts reviewed (outside hosp., previous admission, EMS record, old EKG, old radiological studies, urgent care reports/EKG's, snf records)? Report findings @ -Prior lab work and prior charts were reviewed Differential Diagnosis (chest pain, altered mental status, abdominal pain women, abdominal pain men, vaginal bleeding, weakness, fever, dyspnea, syncope, headache, dizziness, GI bleed, back pain, seizure, CVA, palpatations, mental health, musculoskeletal)? @ -Differential Chest Pain: Stable Angina, Unstable Angina, STEMI, NSTEMI Aortic Dissection, Pneumothorax, Musculoskeletal, Esophageal Spasm GERD, Cholecystitis, Pancreatitis, Zoster, this is not meant to be an all-inclusive list. EKG interpreted by me (3pts min.). @ -[As above] X-rays interpreted by me (1pt min.). @ -Chest x-ray shows no acute abnormality CT interpreted by me (1pt min.). @ -[None done] U/S interpreted by me (1pt. min.). @ -[None done] What testing was considered but not performed or refused? (CT, X-rays, U/S, l abs)? Why? @ -[None] What meds were considered but not given or refused? Why? @ -[None] Did you discuss the management of the patient with other professionals (professionals i.e. , PA, SLOT TAG INSERTER, lab, RT, psych nurse, clinical social worker, forepart rasper, teacher, commercial account officer, case folder)? Give summary @ -With the [facility] hospitalist about all the results and testing on this patient Was smoking cessation discussed for >3mins.? @ -[No] Was critical care preformed (if so, how long)? @ -[No] Were there social determinants of health that impacted care today? How? (Homelessness, low income, unemployed, alcoholism, drug addiction, transportation, low edu. Level, literacy, decrease access to med. care, alf, rehab)? @ -[No] Was there de-escalation of care discussed even if they declined (Discuss DNR or withdrawal of care, Hospice)? DNR status @ -[No] What co-morbidities impacted this encounter? (DM, HTN, Smoking, COPD, CAD, Cancer, CVA, ARF, Chemo, Hep., AIDS, mental health diagnosis, sleep apnea, morbid obesity)? @ -[None] Was patient admitted / discharged? Hospital course, mention meds given and route, prescriptions, significant lab abnormalities, going to OR and other pertinent info. @ -Patient was given Zofran for the nausea which helped. Patient was also given Nitropaste to the chest pain in her chest pain had come down. I spoke with [facility] hospice agreed to admit the patient admitted the patient I consulted cardiology since patient was already being scheduled for a stress test Undiagnosed new problem with uncertain prognosis? @ -[No] Drug Therapy requiring intensive monitoring for toxicity (Heparin, Nitro, Insulin, Cardizem)? @ -[No] Were any procedures done? @ -[No] Diagnosis/symptom? @ -Chest pain Acute, or Chronic, or Acute on Chronic? @ -Acute Uncomplicated (without systemic symptoms) or Complicated (systemic symptoms)? @ -Complicated Side effects of treatment? @ -[No] Exacerbation, Progression, or Severe Exacerbation? @ -[No] Poses a threat to life or bodily function? How? (Chest pain, USA, PR, pneumonia, PE, COPD, DKA, ARF, appy, cholecystitis, CVA, Diverticulitis, Homicidal, Suicidal, threat to staff... and all critical care pts) @ -Yes this could lead to poor perfusion and end organ dysfunction - Lab Data Result diagrams: 04/14/23 09:58 04/14/23 09:58 Lab Results 04/14/23 04/14/23 04/14/23 Range/Units 09:58 09:58 09:58 WBC 6.4 (3.8-10.6) k/uL RBC 4.48 (3.80-5.40) m/uL Hgb 12.5 (11.4-16.0) gm/dL Hct 38.6 (34.0-46.0) % MCV 86.0 (80.0-100.0) fL MCH 27.9 (25.0-35.0) pg MCHC 32.4 (31.0-37.0) g/dL RDW 12.6 (11.5-15.5) % Plt Count 192 (150-450) k/uL MPV 7.5 Neutrophils % 71 % Lymphocytes % 17 % Monocytes % 7 % Eosinophils % 1 % Basophils % 0 % Neutrophils # 4.5 (1.3-7.7) k/uL Lymphocytes # 1.1 (1.0-4.8) k/uL Monocytes # 0.5 (0-1.0) k/uL Eosinophils # 0.1 (0-0.7) k/uL Basophils # 0.0 (0-0.2) k/uL PT 10.3 (9.0-12.0) sec INR 1.0 (<1.2) APTT 25.2 (22.0-30.0) sec Sodium 140 (137-145) mmol/L Potassium 4.2 (3.5-5.1) mmol/L Chloride 107 (98-107) mmol/L Carbon Dioxide 25 (22-30) mmol/L Anion Gap 8 mmol/L BUN 11 (7-17) mg/dL Creatinine 0.68 (0.52-1.04) mg/dL Est GFR (CKD-EPI)AfAm >90 (>60 ml/min/1.73 sqM) Est GFR (CKD-EPI)NonAf >90 (>60 ml/min/1.73 sqM) Glucose 135 H (74-99) mg/dL Calcium 9.3 (8.4-10.2) mg/dL Magnesium 2.0 (1.6-2.3) mg/dL Total Bilirubin 0.9 (0.2-1.3) mg/dL AST 37 H (14-36) U/L ALT 31 (4-34) U/L Alkaline Phosphatase 105 (38-126) U/L Troponin I (0.000-0.034) ng/mL Total Protein 7.4 (6.3-8.2) g/dL Albumin 4.2 (3.5-5.0) g/dL Lipase 96 (23-300) U/L 04/14/23 Range/Units 09:58 WBC (3.8-10.6) k/uL RBC (3.80-5.40) m/uL Hgb (11.4-16.0) gm/dL Hct (34.0-46.0) % MCV (80.0-100.0) fL MCH (25.0-35.0) pg MCHC (31.0-37.0) g/dL RDW (11.5-15.5) % Plt Count (150-450) k/uL MPV Neutrophils % % Lymphocytes % % Monocytes % % Eosinophils % % Basophils % % Neutrophils # (1.3-7.7) k/uL Lymphocytes # (1.0-4.8) k/uL Monocytes # (0-1.0) k/uL Eosinophils # (0-0.7) k/uL Basophils # (0-0.2) k/uL PT (9.0-12.0) sec INR (<1.2) APTT (22.0-30.0) sec Sodium (137-145) mmol/L Potassium (3.5-5.1) mmol/L Chloride (98-107) mmol/L Carbon Dioxide (22-30) mmol/L Anion Gap mmol/L BUN (7-17) mg/dL Creatinine (0.52-1.04) mg/dL Est GFR (CKD-EPI)AfAm (>60 ml/min/1.73 sqM) Est GFR (CKD-EPI)NonAf (>60 ml/min/1.73 sqM) Glucose (74-99) mg/dL Calcium (8.4-10.2) mg/dL Magnesium (1.6-2.3) mg/dL Total Bilirubin (0.2-1.3) mg/dL AST (14-36) U/L ALT (4-34) U/L Alkaline Phosphatase (38-126) U/L Troponin I <0.012 (0.000-0.034) ng/mL Total Protein (6.3-8.2) g/dL Albumin (3.5-5.0) g/dL Lipase (23-300) U/L Disposition Clinical Impression: Chest pain Disposition: ADMITTED IP TO THIS HOSP Referrals: Rafaela Ott DO [Primary Care Provider] - 1-2 days Time of Disposition: 11:42
[2023-04-14 10:12] LABS: Basophils % (A) 0 %; Eosinophils # (A) 0.1 k/uL (0-0.7); Eosinophils % (A) 1 %; HCT 38.6 % (34.0-46.0); HGB 12.5 gm/dL (11.4-16.0); Lymphocytes # (A) 1.1 k/uL (1.0-4.8); Lymphocytes % (A) 17 %; MCH 27.9 pg (25.0-35.0); MCHC 32.4 g/dL (31.0-37.0); Mean Platelet Volume 7.5; Monocytes # (A) 0.5 k/uL (0-1.0); Monocytes % (A) 7 %; Neutrophils # (A) 4.5 k/uL (1.3-7.7); Neutrophils % (A) 71 %; Platelet Count 192 k/uL (150-450); RBC 4.48 m/uL (3.80-5.40); RDW 12.6 % (11.5-15.5); WBC 6.4 k/uL (3.8-10.6)
[2023-04-14 10:15] LABS: Partial Thromboplastin Time 25.2 sec (22.0-30.0); Prothrombin Time 10.3 sec (9.0-12.0)
[2023-04-14 10:17] LABS: ALT 31 U/L (4-34); AST 37 U/L (14-36); African American GFR (CKD) >90 (>60 ml/min/1.73 sqM); Albumin 4.2 g/dL (3.5-5.0); Alkaline Phosphatase 105 U/L (38-126); Anion Gap 8 mmol/L; Blood Urea Nitrogen 11 mg/dL (7-17); Calcium 9.3 mg/dL (8.4-10.2); Carbon Dioxide 25 mmol/L (22-30); Chloride 107 mmol/L (98-107); Glucose 135 mg/dL (74-99); Lipase 96 U/L (23-300); Non-African American GFR(CKD) >90 (>60 ml/min/1.73 sqM); Potassium 4.2 mmol/L (3.5-5.1); Sodium 140 mmol/L (137-145); Total Bilirubin 0.9 mg/dL (0.2-1.3); Total Protein 7.4 g/dL (6.3-8.2)
--- NOTE | 2023-04-14 10:43 | XR ---
EXAMINATION TYPE: XR chest 2V DATE OF EXAM: 04/14/2023 COMPARISON: 03/17/2023 HISTORY: 57-year-old female with chest pain TECHNIQUE: AP and lateral views FINDINGS: ACDF hardware. Electronic device projects at the midline upper chest. Heart borderline enlarged. Mild interstitial prominence may be due to magnification from large body habitus. No consolidation or ple ural effusion. IMPRESSION: Borderline heart size. No definite acute process.
[2023-04-14] MEDS ORDERED: NITROGLYCERIN SL TABS 0.4 MG TAB SUBLINGUAL PRN (11:48)
[2023-04-14] MEDS: NITROGLYCERIN OINT 1 INCH/GM PACKET TOPICAL SCH ×3 (12:42→23:19)
[2023-04-14] MEDS: ACETAMINOPHEN TAB 325 MG TAB PO PRN ×2 (13:54→23:17)
[2023-04-14] MEDS: POTASSIUM CHLORIDE ER 10 MEQ TAB.ER.PRT PO SCH (16:21)
[2023-04-14] MEDS: LEVOTHYROXINE 100 MCG TAB PO SCH (16:21)
[2023-04-14] MEDS: FUROSEMIDE 20 MG TAB PO SCH (16:21)
[2023-04-14] MEDS ORDERED: PRAMIPEXOLE 1 MG TAB PO SCH (21:00)
[2023-04-14] MEDS ORDERED: AMITRIPTYLINE HCL 25 MG TAB PO SCH (21:00)
[2023-04-14] MEDS ORDERED: PANTOPRAZOLE 40 MG TABLET PO SCH (21:00)
[2023-04-15] MEDS: NITROGLYCERIN OINT 1 INCH/GM PACKET TOPICAL SCH (06:39)
[2023-04-15 08:29] LABS: Basophils % (A) 0 %; Eosinophils # (A) 0.1 k/uL (0-0.7); Eosinophils % (A) 3 %; HCT 36.8 % (34.0-46.0); HGB 11.8 gm/dL (11.4-16.0); Lymphocytes # (A) 1.1 k/uL (1.0-4.8); Lymphocytes % (A) 24 %; MCH 28.1 pg (25.0-35.0); MCHC 32.1 g/dL (31.0-37.0); MCV 87.7 fL (80.0-100.0); Mean Platelet Volume 7.2; Monocytes # (A) 0.3 k/uL (0-1.0); Monocytes % (A) 7 %; Neutrophils # (A) 2.9 k/uL (1.3-7.7); Neutrophils % (A) 62 %; Platelet Count 168 k/uL (150-450); RDW 12.6 % (11.5-15.5); WBC 4.7 k/uL (3.8-10.6)
[2023-04-15 08:50] LABS: African American GFR (CKD) >90 (>60 ml/min/1.73 sqM); Anion Gap 6 mmol/L; Blood Urea Nitrogen 7 mg/dL (7-17); Calcium 8.6 mg/dL (8.4-10.2); Carbon Dioxide 27 mmol/L (22-30); Chloride 105 mmol/L (98-107); Glucose 114 mg/dL (74-99); Non-African American GFR(CKD) >90 (>60 ml/min/1.73 sqM); Potassium 3.9 mmol/L (3.5-5.1); Sodium 138 mmol/L (137-145)
[2023-04-15] MEDS ORDERED: ALENDRONATE SODIUM 10 MG PO SCH (09:00)
[2023-04-15] MEDS ORDERED: ASPIRIN 325 MG TAB PO SCH (09:00)
[2023-04-15 09:14] VITALS: RESP 18
[2023-04-15] MEDS: FUROSEMIDE 20 MG TAB PO SCH (09:19)
[2023-04-15] MEDS: LEVOTHYROXINE 100 MCG TAB PO SCH (09:19)
[2023-04-15] MEDS: POTASSIUM CHLORIDE ER 10 MEQ TAB.ER.PRT PO SCH (09:19)
[2023-04-15] MEDS ORDERED: DOBUTamine DRIP for NUC MED 500 MG in DEXTROSE/WATER 1 250ML.BAG IV PRN (10:06)
[2023-04-15] MEDS ORDERED: SODIUM CHLORIDE 0.9% 1,000 ML IV SCH (10:15)
[2023-04-15 11:08] LABS: Chol/HDL Ratio 3.15 Ratio; LDL Cholesterol,Calculated 78.6 mg/dL (0.0-131.0)
--- NOTE | 2023-04-15 11:12 | P.CRDCN ---
History of Present Illness History of present illness: HISTORY OF PRESENT ILLNESS: This is a 57-year-old female with a past medical history significant for hypothyroidism. Patient follows in the office with Dr. Harper. We have been asked to see the patient in consultation for chest pain. Patient examined at the bedside. Patient was admitted to the hospital last month for an episode of syncope. She underwent tilt table testing which was negative. She also received an event monitor which she states that she still has 3 weeks remaining and then she is to follow up in the office. The patient states on Saturday she began to feel unwell. She states that she woke up yesterday morning with nausea and vomiting. She reports having pain across both sides of her chest and down both of her arms. She reports feeling short of breath and feeling diaphoretic. She states the pain lasted for a couple of hours in which she came to the hospital for further evaluation. She received a nitro patch here which she states relieved her chest pain. Upon examination, she denies chest pain or pressure. She reports continued episodes of diaphoresis. * EKG reveals sinus mechanism with no signs of acute ischemia * Chest xray borderline heart size. No definite acute process. * Laboratory data: WBC 4.7. Hemoglobin 11.8. Platelet count 168. Sodium 138. Potassium 3.9. BUN 7. Creatinine 0.71. Magnesium 2.0. Troponin negative 3 * Current home cardiac medications include Lasix 20 mg daily * Most recent echocardiogram obtained in March 2023 revealed ejection fraction 55- 60% with no valvular issues REVIEW OF SYSTEMS: At the time of my exam: CONSTITUTIONAL: Denies fever or chills. HEENT: Denies blurred vision, vision changes, or eye pain. Denies hemoptysis CARDIOVASCULAR: Denies chest pain. Denies orthopnea. Denies PND. Denies palpitations RESPIRATORY: Denies shortness of breath. GASTROINTESTINAL: Denies abdominal pain. Denies nausea or vomiting. HEMATOLOGIC: Denies bleeding disorders. GENITOURINARY: Denies any blood in urine. SKIN: Denies pruitis. Denies rash. PHYSICAL EXAM: VITAL SIGNS: Reviewed. GENERAL: Well-developed in no acute distress. HEENT: Head is normocephalic. Pupils are equal, round. Sclerae anicteric. Mucous membranes of the mouth are moist. Neck supple. No JVD or thyromegaly LUNGS: Respirations even and unlabored. Lungs essentially clear to auscultation bilaterally. HEART: Regular rate and rhythm. S1 and S2 heard. ABDOMEN: Soft. Nondistended. Nontender. EXTREMITIES: Normal range of motion. No clubbing or cyanosis. Peripheral pulses intact. No lower extremity edema NEUROLOGIC: Awake and alert. Oriented x 3. ASSESSMENT: Chest pain, troponins negative 3 History of hypothyroidism History of syncopal episode with recent hospital admission with negative tilt table testing and currently wearing event monitor Morbid obesity: BMI 35.5 PLAN: An acute coronary event has been ruled out No need to repeat echocardiogram as this was performed last month Patient to undergo Dobutamine stress testing today If negative, she may be discharged home today from a cardiac standpoint and f ollow up on an outpatient basis with Dr. Harper after completion of her event monitor Nurse practitioner note has been reviewed by physician. Signing provider agrees with the documented findings, assessment, and plan of care. Past Medical History Past Medical History: Cancer, Deep Vein Thrombosis (DVT), GERD/Reflux, Musculoskeletal Disorder, Rheumatoid Arthritis (RA), Skin Disorder, Thyroid Disorder Additional Past Medical History / Comment(s): hx colon cancer 2009, chemo completed, BLOOD CLOT IN ABDOMEN AFTER BOWEL SURG, NEUROPATHY forrest legs/feet, restless leg, palpitations, elevated liver enzymes-dr. cesar. Chronic back pain, bulging disc, fx. Spider bites lt arm, History of Any Multi-Drug Resistant Organisms: None Reported Past Surgical History: Bladder Surgery, Bowel Resection, Hysterectomy, Tonsillectomy, Tubal Ligation Additional Past Surgical History / Comment(s): Cervical fusion C-5,6,7. Pain procedures Past Anesthesia/Blood Transfusion Reactions: Family History of Problems w/ Anesthesia, Motion Sickness Additional Past Anesthesia/Blood Transfusion Reaction / Comment(s): MOTHER HAS PONV Past Psychological History: Depression Additional Psychological History / Comment(s): her 19-year-old son was killed in a motorcycle accident 9 years ago Smoking Status: Never smoker Past Alcohol Use History: Occasional Past Drug Use History: None Reported - Past Family History Father Family Medical History: Cancer Medications and Allergies Home Medications Medication Instructions Recorded Confirmed Type Pramipexole [Mirapex] 2 mg PO HS 08/14/19 04/14/23 History Acetaminophen/Diphenhydramine 2 tab PO HS 03/17/23 04/14/23 History [Tylenol PM 500-25mg] Alendronate Sodium [Fosamax] 10 mg PO DAILY 03/17/23 04/14/23 History Amitriptyline HCl 25 mg PO HS 03/17/23 04/14/23 History Ammonium Lactate Cream [Lac-Hydrin 1 applic TOPICAL DAILY PRN 03/17/23 04/14/23 History 12% Cream] Diclofenac Sodium Gel [Voltaren 1 gm TOPICAL QID PRN 03/17/23 04/14/23 History Gel] Furosemide [Lasix] 20 mg PO DAILY 03/17/23 04/14/23 History Levothyroxine Sodium [Synthroid] 200 mcg PO DAILY 03/17/23 04/14/23 History Potassium Chloride ER [K-Dur 10] 10 meq PO DAILY 03/17/23 04/14/23 History Pantoprazole [Protonix] 40 mg PO HS #30 tab 03/18/23 04/14/23 Rx Allergies Allergy/AdvReac Type Severity Reaction Status Date / Time Penicillins Allergy Severe Swelling Verified 04/14/23 12:52 Physical Exam Vitals: Vital Signs Temp Pulse Pulse Resp BP BP Pulse Ox 04/15/23 04:00 98.1 F 60 16 102/64 95 04/15/23 02:00 61 16 04/15/23 00:00 97.7 F 61 16 94/61 97 04/14/23 20:00 97.7 F 77 16 117/66 96 04/14/23 16:00 71 16 94/60 96 04/14/23 13:55 88 18 109/69 98 04/14/23 12:41 69 18 107/74 93 L 04/14/23 11:07 67 18 108/65 94 L 04/14/23 09:49 77 77 18 130/73 97 04/14/23 09:10 98 F 85 22 105/73 99 Intake and Output 04/14/23 04/15/23 04/15/23 22:59 06:59 14:59 Other: Voiding Method Toilet Toilet # Voids 1 1 Weight 99.79 kg Results 04/15/23 07:55 04/15/23 07:55 Cardiac Enzymes 04/14/23 04/14/23 04/14/23 Range/Units 09:58 09:58 13:12 AST 37 H (14-36) U/L Troponin I <0.012 <0.012 (0.000-0.034) ng/mL 04/14/23 Range/Units 15:22 AST (14-36) U/L Troponin I <0.012 (0.000-0.034) ng/mL Coagulation 04/14/23 Range/Units 09:58 PT 10.3 (9.0-12.0) sec APTT 25.2 (22.0-30.0) sec CBC 04/14/23 04/15/23 Range/Units 09:58 07:55 WBC 6.4 4.7 (3.8-10.6) k/uL RBC 4.48 4.20 (3.80-5.40) m/uL Hgb 12.5 11.8 (11.4-16.0) gm/dL Hct 38.6 36.8 (34.0-46.0) % Plt Count 192 168 (150-450) k/uL Comprehensive Metabolic Panel 04/14/23 Range/Units 09:58 Sodium 140 (137-145) mmol/L Potassium 4.2 (3.5-5.1) mmol/L Chloride 107 (98-107) mmol/L Carbon Dioxide 25 (22-30) mmol/L BUN 11 (7-17) mg/dL Creatinine 0.68 (0.52-1.04) mg/dL Glucose 135 H (74-99) mg/dL Calcium 9.3 (8.4-10.2) mg/dL AST 37 H (14-36) U/L ALT 31 (4-34) U/L Alkaline Phosphatase 105 (38-126) U/L Total Protein 7.4 (6.3-8.2) g/dL Albumin 4.2 (3.5-5.0) g/dL Current Medications Generic Name Dose Route Start Last Admin Trade Name Freq PRN Reason Stop Dose Admin Acetaminophen 650 mg 04/14/23 12:48 04/14/23 23:17 Acetaminophen Tab 325 Mg Tab PO 650 mg Q4HR PRN Administration Fever and/ or Pain Amitriptyline HCl 25 mg 04/14/23 21:00 04/14/23 21:31 Amitriptyline Hcl 25 Mg Tab PO 25 mg HS BROOK Administration Aspirin 325 mg 04/15/23 09:00 Aspirin 325 Mg Tab PO DAILY BROOK Furosemide 20 mg 06/11/23 14:30 04/14/23 16:21 Furosemide 20 Mg Tab PO 20 mg DAILY BROOK Administration Levothyroxine Sodium 200 mcg 04/14/23 14:30 04/14/23 16:21 Levothyroxine 100 Mcg Tab PO 200 mcg DAILY BROOK Administration Nitroglycerin 0.4 mg 04/14/23 11:48 Nitroglycerin Sl Tabs 0.4 Mg Tab SUBLINGUAL Q5M PRN Chest Pain Nitroglycerin 1 inch 04/14/23 12:00 04/15/23 06:39 Nitroglycerin Oint 1 Inch/Gm Packet TOPICAL Not Given Q6HR PENDING SALE TO [facility] Non-Formulary Medication 10 mg 04/15/23 09:00 Alendronate Sodium [Fosamax] PO DAILY PENDING SALE TO [facility] Pantoprazole Sodium 40 mg 04/14/23 21:00 04/14/23 21:31 Pantoprazole 40 Mg Tablet PO 40 mg HS BROOK Administration Potassium Chloride 10 meq 04/14/23 14:30 04/14/23 16:21 Potassium Chloride Er 10 Meq Tab.Er.Prt PO 10 meq DAILY BROOK Administration Pramipexole Dihydrochloride 2 mg 04/14/23 21:00 04/14/23 21:31 Pramipexole 1 Mg Tab PO 2 mg HS PENDING SALE TO [facility] Administration Intake and Output 04/14/23 04/15/23 04/15/23 22:59 06:59 14:59 Other: Voiding Method Toilet Toilet # Voids 1 1 Weight 99.79 kg 04/15/23 07:55 04/14/23 09:58
--- NOTE | 2023-04-15 12:54 | CA ---
Dobutamine Stress Echocardiogram Report Estella Silva Age: 57 Gender: F : 1965 Exam Date: 04/15/2023 11:07 Exam Location: [facility] Ordering Physician: Rachel Baer Referring Physician: [id number] Kumar Sales Negotiator: TEJ, Technologist: Ht (in): 66 Wt (lb): 220 Procedure CPT: Indication: CP ICD-9 Codes: Rhythm: Patient History: Chest pain and shortness of breath Cardiac Medications: Medications in past 24 hours: Contrast: Total Dose (mL): Stress Results Protocol: Dobutamine Peak Dose (???g/kg/min): 30 Duration (min:sec): Atropine:(mg) Target HR: 140 Double Product: Resting HR: 62 Resting BP: 107 / 68 Peak HR: 154 Peak BP: 129 / 58 Max Predicted HR: 165 93 % Max Predicted HR Stress Summary: BP Response: Reason for Termination: INFUSION COMPLETE,Target HR Cardiac Symptoms: NO SYMPTOMS ECG Analysis Resting EKG: Normal sinus rhythm, normal ECG Stress EKG: No abnormal ST/T wave changes with exercise Arrhythmia: None Echo Analysis Base Echo Analysis: Normal resting echocardiogram. Low Echo Anaylsis: No segmental wall motion abnormality Peak Echo Analysis: Normal wall thickening and motion Recovery Echo: Normal wall motion MEASUREMENTS (Male/Female) Normal Values CONCLUSIONS Normal response to Dobutamine. Normal Dobutamine stress echocardiogram. Dr. Jaida Jansen MD (Electronically Signed) Final Date: 15 April 2023 12:52
[2023-04-15 12:57] VITALS: BP 102/69; PULSE 68; TEMP 98
--- NOTE | 2023-04-15 17:20 | P.HPIM ---
History of Present Illness H&P Date: 04/15/23 Chief Complaint: Chest pain This is a 57-year-old female with past medical history significant for hypothyroidism, restless leg syndrome, polyneuropathy, osteoporosis, and mult iple other medical issues presented to the ER with complaints of chest pain. Last month patient was inpatient for workup regarding syncope, negative tilt table test and was placed on an event monitor. Echo in March 2023 reported EF 55- 60%. SHe reports this past Saturday she felt off with a little chest heaviness, on Saturday chest heaviness resolved but she felt sick and by Saturday developed chest tightness that radiated down bilateral arms to her elbows accompanied by diaphoresis and emesis. Denies diarrhea. Denies abdominal pain. Chronic lower extremity edema. States she has decreased her caffeine intake and now consumes maybe 1 Coca-Cola per day. EKG reported sinus, troponins negative 3, chest x- ray reported non acute. Hematology, coagulation and chemistry panels unremarkable. Triglycerides 126, cholesterol 152, LDL 78, HDL 48.2. Review of Systems ROS Statement: Those systems with pertinent positive or pertinent negative responses have been documented in the HPI. ROS Other: All systems not noted in ROS Statement are negative. Past Medical History Past Medical History: Cancer, Deep Vein Thrombosis (DVT), GERD/Reflux, Musculoskeletal Disorder, Rheumatoid Arthritis (RA), Skin Disorder, Thyroid Disorder Additional Past Medical History / Comment(s): hx colon cancer 2009, chemo completed, BLOOD CLOT IN ABDOMEN AFTER BOWEL SURG, NEUROPATHY forrest legs/feet, restless leg, palpitations, elevated liver enzymes-drAyana monitoring. Chronic back pain, bulging disc, fx. Spider bites lt arm, History of Any Multi-Drug Resistant Organisms: None Reported Past Surgical History: Bladder Surgery, Bowel Resection, Hysterectomy, Tonsillectomy, Tubal Ligation Additional Past Surgical History / Comment(s): Cervical fusion C-5,6,7. Pain procedures Past Anesthesia/Blood Transfusion Reactions: Family History of Problems w/ Anesthesia, Motion Sickness Additional Past Anesthesia/Blood Transfusion Reaction / Comment(s): MOTHER HAS PONV Past Psychological History: Depression Additional Psychological History / Comment(s): her 19-year-old son was killed in a motorcycle accident 9 years ago Smoking Status: Never smoker Past Alcohol Use History: Occasional Past Drug Use History: None Reported - Past Family History Father Family Medical History: Cancer Medications and Allergies Home Medications Medication Instructions Recorded Confirmed Type Pramipexole [Mirapex] 2 mg PO HS 08/14/19 04/14/23 History Acetaminophen/Diphenhydramine 2 tab PO HS 03/17/23 04/14/23 History [Tylenol PM 500-25mg] Alendronate Sodium [Fosamax] 10 mg PO DAILY 03/17/23 04/14/23 History Amitriptyline HCl 25 mg PO HS 03/17/23 04/14/23 History Ammonium Lactate Cream [Lac-Hydrin 1 applic TOPICAL DAILY PRN 03/17/23 04/14/23 History 12% Cream] Diclofenac Sodium Gel [Voltaren 1 gm TOPICAL QID PRN 03/17/23 04/14/23 History Gel] Furosemide [Lasix] 20 mg PO DAILY 03/17/23 04/14/23 History Levothyroxine Sodium [Synthroid] 200 mcg PO DAILY 03/17/23 04/14/23 History Potassium Chloride ER [K-Dur 10] 10 meq PO DAILY 03/17/23 04/14/23 History Pantoprazole [Protonix] 40 mg PO HS #30 tab 03/18/23 04/14/23 Rx Allergies Allergy/AdvReac Type Severity Reaction Status Date / Time Penicillins Allergy Severe Swelling Verified 04/14/23 12:52 Physical Exam Vitals: Vital Signs Temp Pulse Resp BP Pulse Ox 04/15/23 14:00 68 18 04/15/23 12:00 98 F 68 18 102/69 96 04/15/23 10:47 94 L 04/15/23 08:00 98.2 F 60 18 105/68 97 04/15/23 04:00 98.1 F 60 16 102/64 95 04/15/23 02:00 61 16 04/15/23 00:00 97.7 F 61 16 94/61 97 04/14/23 20:00 97.7 F 77 16 117/66 96 Intake and Output 04/15/23 04/15/23 04/15/23 06:59 14:59 22:59 Other: Voiding Method Toilet Toilet # Voids 1 2 VITAL SIGNS: as above PHYSICAL EXAMINATION: Sitting up in bed, no acute distress. HEENT: Atraumatic, normocephalic. Pupils are equal, round. Sclerae anicteric. Conjunctivae are clear. NECK: Supple, no jugular venous distention. CHEST: Lungs are clear to auscultation. No chest wall tenderness is noted on palpation or with deep breathing. HEART: Regular rate and rhythm. S1, S2 heard. No murmurs, gallops or rub. ABDOMEN: Soft, nontender. Bowel sounds are heard. No organomegaly noted. EXTREMITIES: 2+ peripheral pulses with chronic nonpitting peripheral edema and no calf tenderness noted. NEUROLOGIC EXAMINATION: Patient is awake, alert and oriented x3. No focal deficits. Results CBC & Chem 7: 04/15/23 07:55 04/15/23 07:55 Labs: Abnormal Lab Results - Last 24 Hours (Table) 04/15/23 Range/Units 07:55 Glucose 114 H (74-99) mg/dL Assessment and Plan Assessment: Chest pain, troponins negative 3 History of recent Syncope and collapse, negative tilt table test, suspect vasovagal/hypervagotonia, wearing an event monitor Bilateral lower extremity neuropathy Hypothyroidism Osteoporosis Morbid Obesity, BMI 35.5 Plan: Continue on current medication regime ,monitoring and symptomatic treatment. Dobutamine stress test pending. Patient will be discharged home today in a stable condition with guarded prognosis pending stress test results, final DC recommendations and clearance per cardiology. Discharge Medication List Pramipexole [Mirapex] 2 mg PO HS 08/14/19 [History] Acetaminophen/Diphenhydramine [Tylenol PM 500-25mg] 2 tab PO HS 03/17/23 [History] Alendronate Sodium [Fosamax] 10 mg PO DAILY 03/17/23 [History] Amitriptyline HCl 25 mg PO HS 03/17/23 [History] Ammonium Lactate Cream [Lac-Hydrin 12% Cream] 1 applic TOPICAL DAILY PRN 03/17/23 [History] Diclofenac Sodium Gel [Voltaren Gel] 1 gm TOPICAL QID PRN 03/17/23 [History] Furosemide [Lasix] 20 mg PO DAILY 03/17/23 [History] Levothyroxine Sodium [Synthroid] 200 mcg PO DAILY 03/17/23 [History] Potassium Chloride ER [K-Dur 10] 10 meq PO DAILY 03/17/23 [History] Pantoprazole [Protonix] 40 mg PO HS #30 tab 03/18/23 [Rx] The impression and plan of care has been dictated as directed. : I performed a history and examination of this patient, discussed the same with the dictator. I agree with the dictator's note ,documented as a scribe. Any additional findings or plans will be noted.
== END 2023-04-15 15:57 | disposition home or self-care (01) | DRG 203 ==
LOC: EC 09:08 → 3SCARD 11:48 → 4SSUR 12:56 → 3SCARD 12:59
PROVIDERS: ADMIT Family Medicine; ATTEND Family Medicine
DX: R07.9 Chest pain, unspecified (principal); Z68.35 Body mass index [BMI] 35.0-35.9, adult; E66.01 Morbid (severe) obesity due to excess calories; E03.9 Hypothyroidism, unspecified; Z79.890 Hormone replacement therapy; K21.9 Gastro-esophageal reflux disease without esophagitis; G25.81 Restless legs syndrome; G62.9 Polyneuropathy, unspecified; G89.29 Other chronic pain; M06.9 Rheumatoid arthritis, unspecified; M81.0 Age-related osteoporosis without current pathological fracture; Z87.19 Personal history of other diseases of the digestive system; Z08 Encounter for follow-up examination after completed treatment for malignant neoplasm; Z85.038 Personal history of other malignant neoplasm of large intestine; Z86.718 Personal history of other venous thrombosis and embolism; Z92.21 Personal history of antineoplastic chemotherapy; Z88.0 Allergy status to penicillin; Z90.710 Acquired absence of both cervix and uterus; Z98.51 Tubal ligation status; M54.9 Dorsalgia, unspecified; Z79.83 Long term (current) use of bisphosphonates; Z79.899 Other long term (current) drug therapy; F32.A Depression, unspecified
CPT/HCPCS: 36415; 71046; 80048; 80053; 80061; 83690; 83735; 84484; 85025; 85610; 85730; 93005; 93351; 94760; 96361; 96374; 96376; 99285

== ENCOUNTER → 2023-07-04 | Outpatient (CLI) | payer OTHER ==
--- NOTE | 2023-07-04 14:46 | P.SLEEP ---
History of Present Illness DATE: 07/04/2023 CONSULTATION/NEW PATIENT EVALUATION HISTORY OF PRESENT ILLNESS/SLEEP-WAKE EVALUATION: 57-year-old lady had been ev aluated in the sleep center for possible obstructive sleep apnea hypopnea syndrome. SLEEP SCHEDULE: Usually sleep schedule from 8 9 PM until 7 AM. FALLING ASLEEP: Usually patient doesn't have significant problems with falling asleep. DURING SLEEP: Patient has snoring and multiple awakenings from sleep. Positive history of palpitation, heartburn, sweating. No history of hypnogogical hallucinations, sleep paralysis, or cataplexy. DURING THE DAY/WAKE STATE: In the morning patient wake up tired. [place] sleepiness scale is in high range of 16. 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 PAST MEDICAL HISTORY: Vasovagal syncopal, fatty liver. PAST SURGICAL HISTORY: Colon resection for cancer, hysterectomy, L6 L7 fusion. MEDICATIONS: Medication for vasovagal syncopal episodes. SOCIAL HISTORY: Negative for smoking,, alcohol consumption occasional. FAMILY HISTORY: Sleep apnea. REVIEW OF SYSTEMS: Snoring, multiple awakenings from sleep, sleepiness during the day. No fevers. No double vision. No recent chest pain. No shortness of breath. No abdominal pain. No bleeding episodes. No blood in urine. No seizure episodes. PHYSICAL EXAMINATION: GENERAL: A pleasant patient without any distress. VITAL SIGNS: BP 94/69, HR 65, RR 12, weight 228.6 pounds, height 5 foot 5 inches, body mass index 37.9. HEENT: PERRLA, EOMI. Evaluation of oropharynx showed tongue protrudes midline, low position of soft palate Mallampati 2, significant retrognathia about 4 mm, short distance between soft palate and posterior pharyngeal wall. NECK: Supple. No JVD. Thyroid is not palpable. 14.5 inches in circumference. LUNGS: Clear to percussion and to auscultation. Good air exchange. No wheezing or rhonchi. HEART: S1, S2 regular. No murmurs, gallops or rubs. ABDOMEN: Soft and nontender. Bowel sounds are present. No organomegaly appreciated. Slightly obese EXTREMITIES: No clubbing or cyanosis. GLUER MACHINE OPERATOR: Awake, alert, and oriented x3. Cranial nerves 2 to 7 intact. There is no fasciculation or atrophy noted. No focal deficits observed. ASSESSMENT: 1. Snoring, multiple awakenings from sleep, retrognathia, short distance between soft palate and posterior pharyngeal wall, sleepiness with [place] s leepiness scale 16. Obstructive sleep apnea hypopnea syndrome. 2. Obesity, BMI 37.9. 3. History of colon CA, status post surgical treatment. 4. Restless leg symptoms. 5 vasovagal syncopal episodes. 6 . Status post hysterectomy. 7. History of fatty liver. 8. Status post L6 L7 fusion. PLAN: 1. Polysomnography for evaluation of patient's breathing during sleep. 2. CPAP/BiPAP titration if sleep study confirms obstructive sleep apnea- hypopnea syndrome. 3. Preferable position during sleep on the side. 4. No driving if patient feels any sleepiness. Patient is aware of civil and criminal liability for unsafe driving. 5. Sleep hygiene with regular sleep time for at least 7.5-8 hours. 6. Watching and losing weight. Thank you very much for referring this patient for consultation. Sincerely, Baljeet Del Rio MD, PhD, FAASM. Diplomat of [employer] [employer], Sleep Medicine Board by [employer] [employer] Endoscopy Tech of [facility] [place] Past Medical History Past Medical History: Cancer, Deep Vein Thrombosis (DVT), GERD/Reflux, Mus culoskeletal Disorder, Rheumatoid Arthritis (RA), Skin Disorder, Thyroid Disorder Additional Past Medical History / Comment(s): hx colon cancer 2009, chemo completed, BLOOD CLOT IN ABDOMEN AFTER BOWEL SURG, NEUROPATHY forrest legs/feet, restless leg, palpitations, elevated liver enzymes- monitoring. Chronic back pain, bulging disc, fx. Spider bites lt arm, History of Any Multi-Drug Resistant Organisms: None Reported Past Surgical History: Bladder Surgery, Bowel Resection, Hysterectomy, Tonsillectomy, Tubal Ligation Additional Past Surgical History / Comment(s): Cervical fusion C-5,6,7. Pain procedures Past Anesthesia/Blood Transfusion Reactions: Family History of Problems w/ Anesthesia, Motion Sickness Additional Past Anesthesia/Blood Transfusion Reaction / Comment(s): MOTHER HAS PONV Past Psychological History: Depression Additional Psychological History / Comment(s): her 19-year-old son was killed in a motorcycle accident 9 years ago Smoking Status: Never smoker Past Alcohol Use History: Occasional Past Drug Use History: None Reported - Past Family History Father Family Medical History: Cancer Medications and Allergies Home Medications Medication Instructions Recorded Confirmed Type Pramipexole [Mirapex] 2 mg PO HS 08/14/19 04/14/23 History Acetaminophen/Diphenhydramine 2 tab PO HS 03/17/23 04/14/23 History [Tylenol PM 500-25mg] Alendronate Sodium [Fosamax] 10 mg PO DAILY 03/17/23 04/14/23 History Amitriptyline HCl 25 mg PO HS 03/17/23 04/14/23 History Ammonium Lactate Cream [Lac-Hydrin 1 applic TOPICAL DAILY PRN 03/17/23 04/14/23 History 12% Cream] Diclofenac Sodium Gel [Voltaren 1 gm TOPICAL QID PRN 03/17/23 04/14/23 History Gel] Furosemide [Lasix] 20 mg PO DAILY 03/17/23 04/14/23 History Levothyroxine Sodium [Synthroid] 200 mcg PO DAILY 03/17/23 04/14/23 History Potassium Chloride ER [K-Dur 10] 10 meq PO DAILY 03/17/23 04/14/23 History Pantoprazole [Protonix] 40 mg PO HS #30 tab 03/18/23 04/14/23 Rx Allergies Allergy/AdvReac Type Severity Reaction Status Date / Time Penicillins Allergy Severe Swelling Verified 04/14/23 12:52 Sleep Note - Sleep Note Sleep Note: Temperature: Pulse Rate: Respiratory Rate: Blood Pressure: SpO2: Height: Weight: BMI: Neck Circumference:
== END ==
LOC: 3 N SLEEP 14:07
PROVIDERS: ATTEND Internal Medicine
DX: G47.33 Obstructive sleep apnea (adult) (pediatric) (principal); E66.9 Obesity, unspecified; G25.81 Restless legs syndrome; R55 Syncope and collapse; K76.0 Fatty (change of) liver, not elsewhere classified; Z68.37 Body mass index [BMI] 37.0-37.9, adult; Z98.890 Other specified postprocedural states; Z85.038 Personal history of other malignant neoplasm of large intestine; Z88.0 Allergy status to penicillin
CPT/HCPCS: 99211

== ENCOUNTER 2023-08-12 19:39 | Outpatient (CLI) | payer OTHER ==
--- NOTE | 2023-08-15 09:25 | P.PCN ---
Description of Procedure: POLYSOMNOGRAPHY REPORT PROCEDURE(S)/DATE(S): Polysomnography 08/12/2023 CLINICAL: Patient has been seen in the sleep center for evaluation of obstructive sleep apnea-hypopnea syndrome. Please see my consultation. Sleep study has been done for evaluation of patient breathing during the sleep. PROCEDURE: The standard montage for clinical polysomnography included the electroencephalogram, the electrooculogram, the mentalis surface electromyography and Lead II cardiography. The respiratory battery consisted of measurements of nasal/buccal air flow, pressure transducer measurements from nose, thoracic and/or abdominal effort and intercostal surface electromyography. Video monitoring has been done to check for any parasomnia events. Nocturnal oxyhemoglobin saturations were obtained by finger oximetry. Step-jacob titration with positive airway pressure was utilized to control the respiratory events, if necessary. RESULTS: During the diagnostic sleep study sleep efficiency was significantly decreased to 68.6 %. Latency to sleep onset was significantly prolonged to 63.0 min. Sleep architecture showed stage NI was borderline 8.7 %, Delta sleep was absent 0 %, REM sleep was short 8.3 %. Respiratory channel showed 7 obstructive apneas, 0 mixed apneas, 5 central apne as, 69 hypopneas with lowest oxygen level 85%. Total apnea hypopnea index was 17.6. Heart rate was in the range between 57 and 79, average 67. EMG showed 32.8 periodic limb movements per hour with 0.2 micro-arousals per hour. IMPRESSIONS: 1. Moderate obstructive sleep apnea hypopnea syndrome. 2. Significant periodic limb movements have been documented, but without significant amount of micro-arousals related to leg movements. Please see other impressions from consultation PLAN: 1. The patient will have PAP titration for correction of respiratory abnormalities during the sleep. 2. Losing weight program. 3. Sleep hygiene with regular time in bed for at least 7-1/2 hours. 4. No driving if feeling sleepiness. 5. Please check iron profile including ferritin level. Low level of iron may increase the risk for periodic limb movements. Thank you very much for allowing me to participate in the management of your patient. Sincerely, Baljeet Del Rio MD, PhD, FAASM. Diplomat of [place] [employer], Sleep Medicine Board by [employer] Heddle Machine Operator of [facility] [place]
== END 2023-08-13 04:48 | disposition home or self-care (01) ==
LOC: 3 N SLEEP 19:39
PROVIDERS: ATTEND Internal Medicine
DX: G47.33 Obstructive sleep apnea (adult) (pediatric) (principal); Z88.0 Allergy status to penicillin
CPT/HCPCS: 95810

== ENCOUNTER 2023-10-10 19:15 | Outpatient (CLI) | payer OTHER ==
--- NOTE | 2023-10-17 12:40 | P.PCN ---
Description of Procedure: CLINICAL: Titration with positive air pressure has been done for correction of respiratory abnormalities during sleep. DESCRIPTION OF PROCEDURE: The standard montage for clinical polysomnography included the electroencephalogram, the electrocardiogram, the mentalis surface electromyography and Lead II cardiography. The respiratory battery consisted of measurements of nasal /buccal air flow, pressure transducer measurements from the nose, thoracic and /or abdominal effort and intercostal surface electromyography. Video monitoring has been done to check for any parasomnia events. Nocturnal oxyhemoglobin saturations were obtained by finger oximetry. Step-jacob titration with positive airway pressure was utilized to control respiratory events. Raw data of sleep recording has been reviewed and is adequate. RESULTS: Sleep efficiency was decreased to 77.2 %. Latency to sleep onset was significantly prolonged to 52.5 minutes.]. Sleep architecture showed stage N1 was slightly short 4.1 %, Delta sleep was significantly increased to 34.9 %, REM sleep was decreased to 9.5 %. Heart rate was minimum 55 BPM, maximum 66 BPM, average 60 BPM. EMG showed 13.3 periodic limb movements per hour with 0 micriarousals per hour. PAP titration have been done with CPAP up to the pressure 9 cm H2O. The best results were at the pressure 8 cm H2O. Apnea hypopnea index reduced to 4.3. IMPRESSION: 1. Obstructive sleep apnea hypopnea syndrome on controle with PAP treatment. 2. Periodic limb movements have been documented at the beginning of sleep study. Please see other impressions from consultation. PLAN: 1. The patient will have treatment with positive air pressure equipment with the level of pressure AutoPAP 5-10 cm H2O and should use it every night for the whole night. 2. Watching and losing weight. 3. Sleep hygiene with regular time in bed for at least 8 hours. 4. No driving if feeling any sleepiness. 5. I will see the patient for follow up visit to explain the results of the test, recommendations, check compliance with treatment and make any necessary adjustment related to mask fitting, pressure and humidification. 6. Please check iron profile including ferritin level. Low level of iron may increase risk for periodic limb movements Thank you very much for allowing me to participate in the management of your patient. Sincerely, Baljeet DelR io MD, PhD, FAASM Diplomat of [place] [employer] Sleep Medicine Board of [place] [employer] Medicine Alcoholic Counselor of [facility] [place]
== END 2023-10-11 04:15 | disposition home or self-care (01) ==
LOC: 3 N SLEEP 19:15
PROVIDERS: ATTEND Internal Medicine
DX: G47.33 Obstructive sleep apnea (adult) (pediatric) (principal); G47.61 Periodic limb movement disorder; Z88.0 Allergy status to penicillin
CPT/HCPCS: 95811

== ENCOUNTER → 2024-02-20 | Outpatient (CLI) | payer OTHER ==
[2024-02-20 16:37] VITALS: BP 113/62; PULSE 70; RESP 16; TEMP 98.5
--- NOTE | 2024-02-20 17:44 | P.PN ---
Subjective DATE: 02/20/2024 FOLLOW UP VISIT. Patient with obstructive sleep apnea hypopnea syndrome return to sleep center for follow-up visit. Recently patient had sleep study which documented obstructive sleep apnea hypopnea syndrome. Patient was initiated on PAP therapy and today is first visit after treatment was started. Patient has difficulties with the using of CPAP equipment. Patient was able to use CPAP only for several nights. Patient is using [employer]ear full facemask under the nose. [place] sleepiness scale is significantly increased to 16. I checked information from PAP unit. PAP unit pressure 4-10, average 6.0 cm H2O. Usage is several nights. Leak is slightly increased to 25.7 l/m. Apnea Hypopnea Index is 5.8, which is slightly above normal. Original apnea hypopnea index during the sleep study was 17.6. MEDICATIONS:1. Fosamax 2. Amitriptyline 3. Pramipexole 4. Levothyroxine 200 mcg once a day 5. Protonix 40 mg once a day During physical exam: GENERAL: A pleasant patient without any distress. VITAL SIGNS: Please see below . HEENT: PERRLA, EOMI.low position of soft palate, Mallapati[] . NECK: Supple. No JVD. LUNGS: Clear to percussion and to auscultation. Good air exchange. No wheezing or rhonchi. HEART: S1, S2 regular. ABDOMEN: Soft and nontender.[] EXTREMITIES: No clubbing or cyanosis. QUILL WORKER: Awake, alert, and oriented x3. No focal deficit. Impressions: 1. Obstructive sleep apnea-hypopnea syndrome. Patient has difficulties with using of CPAP equipment. 2. Obesity. 3. History of colon cancer, status post surgical treatment. 4. History of vasovagal syncopal episodes. 5. Status post hysterectomy. 6. History of fatty liver. 7. Status post L6 L7 fusion. Plan: 1. Continue using PAP equipment every night for the whole night.Pressure will be decreased to the level 4 to 7 cm of water. 2. We will do desensitization with the CPAP mask. 3. PAP unit should stay lower then position of the head. 4. Advised patient to remove all remaining water from humidifier canister daily and make it dry after each usage. Refill canister with fresh distilled water before each usage. 5. Sleep hygiene with regular time in bed for at least 8 hours. 6. Precautions related to driving. No driving if feel any sleepiness. 7. I will maintain prescription for PAP supplies including mask, tube, filters. 8. Follow up visit in 1 months or earlier if patient has any problems. 9. Watching and losing weight. Thank you very much for allowing me to participate in the management of your patient. Baljeet Del Rio MD, PhD, FAASM. Diplomat of [place] [employer], Sleep Medicine Board by [place] [employer] Lineman A Class of [facility] [place] Objective - Vital Signs Vital signs: Vital Signs Temp 98.5 F 02/20/24 16:32 Pulse 70 02/20/24 16:32 Resp 16 02/20/24 16:32 BP 113/62 02/20/24 16:32 Pulse Ox 96 02/20/24 16:32 FiO2 Intake & Output 02/19/24 02/20/24 02/20/24 18:59 06:59 18:59 Weight 104.78 kg
== END ==
LOC: 3 N SLEEP 15:55
PROVIDERS: ATTEND Internal Medicine
DX: G47.33 Obstructive sleep apnea (adult) (pediatric) (principal); E66.9 Obesity, unspecified; Z85.038 Personal history of other malignant neoplasm of large intestine; Z90.710 Acquired absence of both cervix and uterus; Z87.19 Personal history of other diseases of the digestive system; Z98.1 Arthrodesis status; Z86.79 Personal history of other diseases of the circulatory system; Z99.89 Dependence on other enabling machines and devices; Z88.0 Allergy status to penicillin
CPT/HCPCS: 99212

== ENCOUNTER 2024-06-30 10:59 | Emergency (ER) | payer OTHER ==
[2024-06-30 11:06] VITALS: TEMP 97.9
--- NOTE | 2024-06-30 11:30 | ED ---
General Adult HPI - General Chief complaint: Recheck/Abnormal Lab/Rx Stated complaint: Fever, R shoulder pain Time Seen by Provider: 06/30/24 11:27 Source: patient, RN notes reviewed Mode of arrival: ambulatory Limitations: no limitations - History of Present Illness Initial comments: 58-year-old female presenting with chills x 1 day. States she has periods of "freezing, shaking and cold" alternating with periods of sweating. Denies any other symptoms. States she has had chronic right shoulder pain, recently diagnosed with bursitis, and has follow-up with Ortho on . Denies any change in shoulder pain or symptoms. Denies vomiting, abdominal pain, cough, nasal congestion, urinary symptoms. Denies recent travel or surgeries. Has not taken anything for the fever today. - Related Data Home Medications Medication Instructions Recorded Confirmed Pramipexole [Mirapex] 2 mg PO HS 08/14/19 04/14/23 Acetaminophen/Diphenhydramine 2 tab PO HS 03/17/23 04/14/23 [Tylenol PM 500-25mg] Alendronate Sodium [Fosamax] 10 mg PO DAILY 03/17/23 04/14/23 Amitriptyline HCl 25 mg PO HS 03/17/23 04/14/23 Ammonium Lactate Cream [Lac-Hydrin 1 applic TOPICAL DAILY PRN 03/17/23 04/14/23 12% Cream] Diclofenac Sodium Gel [Voltaren 1% 1 gm TOPICAL QID PRN 03/17/23 04/14/23 Gel] Furosemide [Lasix] 20 mg PO DAILY 03/17/23 04/14/23 Levothyroxine Sodium [Synthroid] 200 mcg PO DAILY 03/17/23 04/14/23 Potassium Chloride ER [K-Dur 10] 10 meq PO DAILY 03/17/23 04/14/23 Previous Rx's Medication Instructions Recorded Pantoprazole [Protonix] 40 mg PO HS #30 tab 03/18/23 traMADol HCl [Ultram] 50 mg PO Q6H PRN #20 tab 03/31/24 Allergies Allergy/AdvReac Type Severity Reaction Status Date / Time Penicillins Allergy Severe Swelling Verified 03/31/24 18:03 Review of Systems ROS Statement: Those systems with pertinent positive or pertinent negative responses have been documented in the HPI. ROS Other: All systems not noted in ROS Statement are negative. Past Medical History Past Medical History: Cancer, Deep Vein Thrombosis (DVT), GERD/Reflux, Musculoskeletal Disorder, Rheumatoid Arthritis (RA), Skin Disorder, Thyroid Disorder Additional Past Medical History / Comment(s): hx colon cancer 2010, chemo completed, BLOOD CLOT IN ABDOMEN AFTER BOWEL SURG, NEUROPATHY forrest legs/feet, restless leg, palpitations, elevated liver enzymes-dr. cesar. Chronic back pain, bulging disc, fx. Spider bites lt arm, History of Any Multi-Drug Resistant Organisms: None Reported Past Surgical History: Bladder Surgery, Bowel Resection, Hysterectomy, Tonsillectomy, Tubal Ligation Additional Past Surgical History / Comment(s): Cervical fusion C-5,6,7. Pain procedures Past Anesthesia/Blood Transfusion Reactions: Family History of Problems w/ Anesthesia, Motion Sickness Additional Past Anesthesia/Blood Transfusion Reaction / Comment(s): MOTHER HAS PONV Past Psychological History: Depression Smoking Status: Never smoker Past Alcohol Use History: Occasional Past Drug Use History: None Reported - Past Family History Father Family Medical History: Cancer General Exam Limitations: no limitations General appearance: alert, anxious (Patient is very anxious and tearful upon examination) Head exam: Present: atraumatic, normocephalic, normal inspection Eye exam: Present: normal appearance, PERRL, EOMI. Absent: scleral icterus, conjunctival injection, periorbital swelling ENT exam: Present: normal exam, mucous membranes moist Neck exam: Present: normal inspection. Absent: tenderness, meningismus, lymphadenopathy Respiratory exam: Present: normal lung sounds bilaterally. Absent: respiratory distress, wheezes, rales, rhonchi, stridor Cardiovascular Exam: Present: regular rate, normal rhythm, normal heart sounds. Absent: systolic murmur, diastolic murmur, rubs, gallop, clicks GI/Abdominal exam: Present: soft, normal bowel sounds. Absent: distended, tenderness, guarding, rebound, rigid Extremities exam: Present: normal inspection, full ROM, normal capillary refill, other (No erythema, edema, or overlying skin changes of right shoulder. Full range of motion. Full sensation and radial pulses bilaterally). Absent: tenderness, pedal edema, joint swelling, calf tenderness Neurological exam: Present: alert, oriented X3 Psychiatric exam: Present: normal affect, anxious Skin exam: Present: warm, dry, intact, normal color. Absent: rash Course Vital Signs 06/30/24 06/30/24 11:03 14:00 Temperature 97.9 F Pulse Rate 88 68 Respiratory 16 14 Rate Blood Pressure 161/92 121/66 O2 Sat by Pulse 99 98 Oximetry Medical Decision Making - Medical Decision Making Was pt. sent in by a medical professional or institution (DAVID Vogt, BUSINESS MACHINE MECHANIC, urgent care, hospital, or detention...) When possible be specific @ -No Did you speak to anyone other than the patient for history (EMS, parent, family, police, friend...)? What history was obtained from this source @ -No Did you review nursing and triage notes (agree or disagree)? Why? @ -I reviewed and agree with nursing and triage notes Were old charts reviewed (outside hosp., previous admission, EMS record, old EKG, old radiological studies, urgent care reports/EKG's, detention records)? Report findings @ -No old charts were reviewed Differential Diagnosis (chest pain, altered mental status, abdominal pain women, abdominal pain men, vaginal bleeding, weakness, fever, dyspnea, syncope, head ache, dizziness, GI bleed, back pain, seizure, CVA, palpatations, mental health, musculoskeletal)? @ -Differential Fever: Pneumonia, viral URI, endocarditis, myocarditis, pericarditis, otitis, sinusi tis, peritonsillar Abscess, retropharyngeal Abscess, epiglottitis, peritonitis, appendicitis, Katina cystitis, diverticulitis, hepatitis, colitis, UTI, PID, TOA, pyelonephritis, prostatitis, epididymitis, meningitis, encephalitis, pulmonary embolism, CVA, thyroid storm, pancreatitis, adrenal crisis, cavernous sinus thrombosis, this is not meant to be an all-inclusive list. EKG interpreted by me (3pts min.). @ -None X-rays interpreted by me (1pt min.). @ -Chest x-ray reveals no acute process CT interpreted by me (1pt min.). @ -None done U/S interpreted by me (1pt. min.). @ -None done What testing was considered but not performed or refused? (CT, X-rays, U/S, labs)? Why? @ -None What meds were considered but not given or refused? Why? @ -None Did you discuss the management of the patient with other professionals (professionals i.e. DAVID Vogt, BUSINESS MACHINE MECHANIC, lab, RT, psych nurse, social media coordinator, credit collections analyst, teacher, identification officer, caseworker)? Give summary @ -No Was smoking cessation discussed for >3mins.? @ -No Was critical care preformed (if so, how long)? @ -No Were there social determinants of health that impacted care today? How? (Homelessness, low income, unemployed, alcoholism, drug addiction, transportation, low edu. Level, literacy, decrease access to med. care, penitentiary, rehab)? @ -No Was there de-escalation of care discussed even if they declined (Discuss DNR or withdrawal of care, Hospice)? DNR status @ -No What co-morbidities impacted this encounter? (DM, HTN, Smoking, COPD, CAD, Can cer, CVA, ARF, Chemo, Hep., AIDS, mental health diagnosis, sleep apnea, morbid obesity)? @ -None Was patient admitted / discharged? Hospital course, mention meds given and route, prescriptions, significant lab abnormalities, going to OR and other pertinent info. @ -Patient was discharged. Patient was seen and evaluated for chills x 1 day. Denies reportable fever. Denies any other symptoms such as cough, chest pain, shortness of breath, shoulder pain, urinary symptoms, abdominal pain. Patient is afebrile and nontachycardic upon examination. Physical examination is unremarkable. Patient is given ibuprofen. Lab work including CBC, CMP, lactic acid is unremarkable. White blood cell count is 5. Flu, COVID, and RSV are negative. Chest x-ray is negative for acute process. Urine is unremarkable. Discussed there is no sign of emergent etiology causing symptoms today. Patient reports mild improvement of symptoms after ibuprofen. Discussed symptoms are likely viral in nature. Discussed strict return precautions, if new or worsening symptoms develop, return to the ER immediately. Patient is agreeable to plan. Case was discussed with my ED attending Dr. Luz. Patient dischar brittany in stable condition. uncertain prognosis? @ -No Drug Therapy requiring intensive monitoring for toxicity (Heparin, Nitro, Insulin, Cardizem)? @ -No Were any procedures done? @ -No Diagnosis/symptom? @ -Viral URI Acute, or Chronic, or Acute on Chronic? @ -Acute Uncomplicated (without systemic symptoms) or Complicated (systemic symptoms)? @ -Uncomplicated Side effects of treatment? @ -No Exacerbation, Progression, or Severe Exacerbation? @ -No Poses a threat to life or bodily function? How? (Chest pain, [place], [place], pneumonia, PE, COPD, DKA, ARF, appy, cholecystitis, CVA, Diverticulitis, Homicidal, Suicidal, threat to staff... and all critical care pts) @ -Not at this time - Lab Data Result diagrams: 06/30/24 11:06/30/24 11: Lab Results 06/30/24 06/30/24 06/30/24 Range/Units 11:26 11: 11: WBC 5.3 (3.8-10.6) k/uL RBC 4.53 (3.80-5.40) m/uL Hgb 13.2 (11.4-16.0) gm/dL Hct 38.6 (34.0-46.0) % MCV 85.2 (80.0-100.0) fL MCH 29.2 (25.0-35.0) pg MCHC 34.2 (31.0-37.0) g/dL RDW 13.1 (11.5-15.5) % Plt Count 109 L (150-450) k/uL MPV 9.1 Neutrophils % 68 % Lymphocytes % 21 % Monocytes % 7 % Eosinophils % 2 % Basophils % 0 % Neutrophils # 3.6 (1.3-7.7) k/uL Lymphocytes # 1.1 (1.0-4.8) k/uL Monocytes # 0.4 (0-1.0) k/uL Eosinophils # 0.1 (0-0.7) k/uL Basophils # 0.0 (0-0.2) k/uL Sodium 143 (137-145) mmol/L Potassium 4.1 (3.5-5.1) mmol/L Chloride 113 H (98-107) mmol/L Carbon Dioxide 21 L (22-30) mmol/L Anion Gap 9 mmol/L BUN 5 L (7-17) mg/dL Creatinine 0.58 (0.52-1.04) mg/dL Est GFR (CKD-EPI)AfAm >90 (>60 ml/min/1.73 sqM) Est GFR (CKD-EPI)NonAf >90 (>60 ml/min/1.73 sqM) Glucose 129 H (74-99) mg/dL Plasma Lactic Acid Andrew 1.6 (0.7-2.0) mmol/L Calcium 10.1 (8.4-10.2) mg/dL Total Bilirubin 1.2 (0.2-1.3) mg/dL AST 58 H (14-36) U/L ALT 41 H (4-34) U/L Alkaline Phosphatase 84 (38-126) U/L Total Protein 7.5 (6.3-8.2) g/dL Albumin 4.4 (3.5-5.0) g/dL Urine Color Urine Appearance (Clear) Urine pH (5.0-8.0) Ur Specific [place] (1.001-1.035) Urine Protein (Negative) Urine Glucose (UA) (Negative) Urine Ketones (Negative) Urine Blood (Negative) Urine Nitrite (Negative) Urine Bilirubin (Negative) Urine Urobilinogen (<2.0) mg/dL Ur Leukocyte Esterase (Negative) Urine RBC (0-5) /hpf Urine WBC (0-5) /hpf Ur Squamous Epith Cells (0-4) /hpf Urine Bacteria (None) /hpf Urine Mucus (None) /hpf Influenza Type A (PCR) (Not Detectd) Influenza Type B (PCR) (Not Detectd) RSV (PCR) (Not Detectd) SARS-CoV-2 (PCR) (Not Detectd) 06/30/24 06/30/24 Range/Units 11:26 13:09 WBC (3.8-10.6) k/uL RBC (3.80-5.40) m/uL Hgb (11.4-16.0) gm/dL Hct (34.0-46.0) % MCV (80.0-100.0) fL MCH (25.0-35.0) pg MCHC (31.0-37.0) g/dL RDW (11.5-15.5) % Plt Count (150-450) k/uL MPV Neutrophils % % Lymphocytes % % Monocytes % % Eosinophils % % Basophils % % Neutrophils # (1.3-7.7) k/uL Lymphocytes # (1.0-4.8) k/uL Monocytes # (0-1.0) k/uL Eosinophils # (0-0.7) k/uL Basophils # (0-0.2) k/uL Sodium (137-145) mmol/L Potassium (3.5-5.1) mmol/L Chloride (98-107) mmol/L Carbon Dioxide (22-30) mmol/L Anion Gap mmol/L BUN (7-17) mg/dL Creatinine (0.52-1.04) mg/dL Est GFR (CKD-EPI)AfAm (>60 ml/min/1.73 sqM) Est GFR (CKD-EPI)NonAf (>60 ml/min/1.73 sqM) Glucose (74-99) mg/dL Plasma Lactic Acid Andrew (0.7-2.0) mmol/L Calcium (8.4-10.2) mg/dL Total Bilirubin (0.2-1.3) mg/dL AST (14-36) U/L ALT (4-34) U/L Alkaline Phosphatase (38-126) U/L Total Protein (6.3-8.2) g/dL Albumin (3.5-5.0) g/dL Urine Color Light Yellow Urine Appearance Cloudy H (Clear) Urine pH 7.5 (5.0-8.0) Ur Specific [place] 1.013 (1.001-1.035) Urine Protein Negative (Negative) Urine Glucose (UA) Negative (Negative) Urine Ketones Trace H (Negative) Urine Blood Negative (Negative) Urine Nitrite Negative (Negative) Urine Bilirubin Negative (Negative) Urine Urobilinogen <2.0 (<2.0) mg/dL Ur Leukocyte Esterase Negative (Negative) Urine RBC 1 (0-5) /hpf Urine WBC 4 (0-5) /hpf Ur Squamous Epith Cells 13 H (0-4) /hpf Urine Bacteria Rare H (None) /hpf Urine Mucus Few H (None) /hpf Influenza Type A (PCR) Not Detected (Not Detectd) Influenza Type B (PCR) Not Detected (Not Detectd) RSV (PCR) Not Detected (Not Detectd) SARS-CoV-2 (PCR) Not Detected (Not Detectd) Disposition Clinical Impression: Viral URI Disposition: HOME SELF-CARE Condition: Stable Additional Instructions: Take ibuprofen and Tylenol as needed for symptoms. Please return to the Emergency Department if symptoms worsen or any other concerns. Is patient prescribed a controlled substance at d/c from ED?: No Referrals: Rafaela Ott DO [Primary Care Provider] - 1-2 days Time of Disposition: 14:46
[2024-06-30] MEDS: IBUPROFEN 800 MG TAB PO STA (11:43)
[2024-06-30 12:26] LABS: Basophils % (A) 0 %; Eosinophils # (A) 0.1 k/uL (0-0.7); Eosinophils % (A) 2 %; HCT 38.6 % (34.0-46.0); HGB 13.2 gm/dL (11.4-16.0); Lymphocytes # (A) 1.1 k/uL (1.0-4.8); Lymphocytes % (A) 21 %; MCH 29.2 pg (25.0-35.0); MCHC 34.2 g/dL (31.0-37.0); MCV 85.2 fL (80.0-100.0); Mean Platelet Volume 9.1; Monocytes # (A) 0.4 k/uL (0-1.0); Monocytes % (A) 7 %; Neutrophils # (A) 3.6 k/uL (1.3-7.7); Neutrophils % (A) 68 %; Platelet Count 109 k/uL (150-450); RBC 4.53 m/uL (3.80-5.40); RDW 13.1 % (11.5-15.5); WBC 5.3 k/uL (3.8-10.6)
[2024-06-30 12:40] LABS: ALT 41 U/L (4-34); AST 58 U/L (14-36); African American GFR (CKD) >90 (>60 ml/min/1.73 sqM); Albumin 4.4 g/dL (3.5-5.0); Alkaline Phosphatase 84 U/L (38-126); Anion Gap 9 mmol/L; Blood Urea Nitrogen 5 mg/dL (7-17); Calcium 10.1 mg/dL (8.4-10.2); Carbon Dioxide 21 mmol/L (22-30); Chloride 113 mmol/L (98-107); Glucose 129 mg/dL (74-99); Non-African American GFR(CKD) >90 (>60 ml/min/1.73 sqM); Potassium 4.1 mmol/L (3.5-5.1); Sodium 143 mmol/L (137-145); Total Bilirubin 1.2 mg/dL (0.2-1.3); Total Protein 7.5 g/dL (6.3-8.2)
--- NOTE | 2024-06-30 13:03 | XR ---
EXAMINATION TYPE: XR chest 2V DATE OF EXAM: 06/30/2024 COMPARISON: 04/14/2020 HISTORY: 58-year-old female fever TECHNIQUE: PA and lateral views FINDINGS: Heart normal size. Aorta and pulmonary vasculature within normal limits. No consolidation or pleural effusion. ACDF hardware. IMPRESSION: No acute cardiopulmonary process.
[2024-06-30 13:53] LABS: Appearance,Urine Cloudy (Clear); Bacteria,Urine Rare /hpf; Bilirubin,Urine Negative (Negative); Blood,Urine Negative (Negative); Color,Urine Light Yellow; Glucose,Urine (UA) Negative (Negative); Ketones,Urine Trace (Negative); Leukocyte Esterase,Urine Negative (Negative); Mucus,Urine Few /hpf; Nitrite,Urine Negative (Negative); PH, Urine 7.5 (5.0-8.0); Protein,Urine Negative (Negative); RBC,Urine 1 /hpf (0-5); Specific Gravity,Urine 1.013 (1.001-1.035); Squamous Epithelial Cell,Urine 13 /hpf (0-4); Urobilinogen,Urine <2.0 mg/dL (<2.0); WBC,Urine 4 /hpf (0-5)
[2024-06-30 14:29] VITALS: BP 121/66; PULSE 68; RESP 14
== END 2024-06-30 15:01 | disposition home or self-care (01) ==
LOC: EC 10:59
DX: R50.9 Fever, unspecified
CPT/HCPCS: 36415; 71046; 80053; 81001; 83605; 85025; 87636; 99284

== ENCOUNTER 2024-07-02 07:58 | Emergency (ER) | payer OTHER ==
[2024-07-02] MEDS: SODIUM CHLORIDE 0.9% 2,000 ML IV STA (09:07)
[2024-07-02] MEDS: KETOROLAC 15 MG/ML 1 ML VIAL IVP STA (09:16)
[2024-07-02] MEDS: ONDANSETRON 4 MG/2 ML VIAL IVP STA (09:16)
[2024-07-02 09:39] LABS: Basophils % (A) 1 %; Eosinophils # (A) 0.1 k/uL (0-0.7); Eosinophils % (A) 2 %; HCT 39.5 % (34.0-46.0); HGB 13.7 gm/dL (11.4-16.0); Lymphocytes # (A) 1.1 k/uL (1.0-4.8); Lymphocytes % (A) 18 %; MCH 29.1 pg (25.0-35.0); MCHC 34.7 g/dL (31.0-37.0); MCV 83.8 fL (80.0-100.0); Monocytes # (A) 0.5 k/uL (0-1.0); Monocytes % (A) 8 %; Neutrophils # (A) 4.2 k/uL (1.3-7.7); Neutrophils % (A) 70 %; RBC 4.72 m/uL (3.80-5.40)
[2024-07-02 09:40] LABS: Platelet Count 197 k/uL (150-450)
[2024-07-02 10:13] LABS: ALT 38 U/L (4-34); African American GFR (CKD) >90 (>60 ml/min/1.73 sqM); Albumin 4.6 g/dL (3.5-5.0); Anion Gap 4 mmol/L; Blood Urea Nitrogen 11 mg/dL (7-17); Calcium 9.9 mg/dL (8.4-10.2); Carbon Dioxide 23 mmol/L (22-30); Chloride 109 mmol/L (98-107); Glucose 130 mg/dL (74-99); Lipase 79 U/L (23-300); Non-African American GFR(CKD) >90 (>60 ml/min/1.73 sqM); Sodium 136 mmol/L (137-145); Total Bilirubin 1.2 mg/dL (0.2-1.3); Total Protein 7.8 g/dL (6.3-8.2)
--- NOTE | 2024-07-02 10:17 | XR ---
EXAMINATION TYPE: XR chest 2V DATE OF EXAM: 07/02/2024 COMPARISON: 02/25/2024 HISTORY: 58-year-old female with chills, body aches, difficulty in breathing, pain TECHNIQUE: PA and lateral views FINDINGS: Heart normal size. Aorta and pulmonary vasculature within normal limits. Interstitial prominence is u nchanged. No consolidation or pleural effusion. ACDF hardware. IMPRESSION: Chronic changes. No acute process seen.
[2024-07-02 10:18] VITALS: RESP 18
[2024-07-02 10:40] LABS: AST 60 U/L (14-36); Alkaline Phosphatase 73 U/L (38-126); Potassium 4.2 mmol/L (3.5-5.1)
[2024-07-02 10:43] LABS: Appearance,Urine Cloudy (Clear); Bacteria,Urine Rare /hpf; Bilirubin,Urine Negative (Negative); Blood,Urine Negative (Negative); Calcium Oxalate Crystals,Urine Occasional /hpf; Color,Urine Yellow; Glucose,Urine (UA) Negative (Negative); Ketones,Urine Negative (Negative); Leukocyte Esterase,Urine Negative (Negative); Mucus,Urine Rare /hpf; Nitrite,Urine Negative (Negative); PH, Urine 6.5 (5.0-8.0); Protein,Urine Trace (Negative); RBC,Urine 1 /hpf (0-5); Squamous Epithelial Cell,Urine 18 /hpf (0-4); WBC,Urine 3 /hpf (0-5)
--- NOTE | 2024-07-02 11:16 | ED ---
General Adult HPI - General Chief complaint: Nausea/Vomiting/Diarrhea Stated complaint: fever,NVD Time Seen by Provider: 07/02/24 08:12 Source: patient Mode of arrival: ambulatory Limitations: no limitations - History of Present Illness Initial comments: 58-year-old female presents emergency department with nausea vomiting diarrhea. States that she was seen in the emergency department Saturday for these complaints. She had laboratory studies conducted. Testing was within normal limits therefore she was discharged home. Patient states that her nausea and vomiting has continued. She has also had 3 episodes of loose watery stools per day. No history of C. difficile. She denies any abdominal pain. Does admit to some low back pain which is chronic for her. No urinary complaints. She denies sick contacts. She does have a new symptom of a left ear pain and pressure. She has not taken anything for her symptoms. She denies fevers but does admit to myalgias and shakes. No other alleviating, precipitating modifying factors - Related Data Home Medications Medication Instructions Recorded Confirmed Pramipexole [Mirapex] 2 mg PO HS 08/14/19 04/14/23 Acetaminophen/Diphenhydramine 2 tab PO HS 03/17/23 04/14/23 [Tylenol PM 500-25mg] Alendronate Sodium [Fosamax] 10 mg PO DAILY 03/17/23 04/14/23 Amitriptyline HCl 25 mg PO HS 03/17/23 04/14/23 Ammonium Lactate Cream [Lac-Hydrin 1 applic TOPICAL DAILY PRN 03/17/23 04/14/23 12% Cream] Diclofenac Sodium Gel [Voltaren 1% 1 gm TOPICAL QID PRN 03/17/23 04/14/23 Gel] Furosemide [Lasix] 20 mg PO DAILY 03/17/23 04/14/23 Levothyroxine Sodium [Synthroid] 200 mcg PO DAILY 03/17/23 04/14/23 Potassium Chloride ER [K-Dur 10] 10 meq PO DAILY 03/17/23 04/14/23 Previous Rx's Medication Instructions Recorded Pantoprazole [Protonix] 40 mg PO HS #30 tab 03/18/23 traMADol HCl [Ultram] 50 mg PO Q6H PRN #20 tab 03/31/24 Azithromycin [Zithromax Z Pack] 1 tab PO DIRECTED #6 tab 07/02/24 Ondansetron Odt [Zofran Odt] 4 mg PO Q8HR PRN #30 tab 07/02/24 predniSONE [Deltasone] 20 mg PO BID #10 tab 07/02/24 Allergies Allergy/AdvReac Type Severity Reaction Status Date / Time Penicillins Allergy Severe Swelling Verified 07/02/24 08:03 Review of Systems ROS Statement: Those systems with pertinent positive or pertinent negative responses have been documented in the HPI. ROS Other: All systems not noted in ROS Statement are negative. Past Medical History Past Medical History: Cancer, Deep Vein Thrombosis (DVT), GERD/Reflux, Musculoskeletal Disorder, Rheumatoid Arthritis (RA), Skin Disorder, Thyroid Disorder Additional Past Medical History / Comment(s): hx colon cancer 2009, chemo completed, BLOOD CLOT IN ABDOMEN AFTER BOWEL SURG, NEUROPATHY forrest legs/feet, restless leg, palpitations, elevated liver enzymes- monitoring. Chronic back pain, bulging disc, fx. Spider bites lt arm, History of Any Multi-Drug Resistant Organisms: None Reported Past Surgical History: Bladder Surgery, Bowel Resection, Hysterectomy, Tonsillectomy, Tubal Ligation Additional Past Surgical History / Comment(s): Cervical fusion C-5,6,7. Pain procedures Past Anesthesia/Blood Transfusion Reactions: Family History of Problems w/ Anesthesia, Motion Sickness Additional Past Anesthesia/Blood Transfusion Reaction / Comment(s): MOTHER HAS PONV Past Psychological History: Depression Smoking Status: Never smoker Past Alcohol Use History: Occasional Past Drug Use History: None Reported - Past Family History Father Family Medical History: Cancer General Exam Limitations: no limitations General appearance: alert, in no apparent distress Head exam: Present: atraumatic, normocephalic, normal inspection Eye exam: Present: normal appearance, PERRL, EOMI. Absent: scleral icterus, conjunctival injection, periorbital swelling ENT exam: Present: normal exam, mucous membranes moist, other (Left tympanic membrane is erythematous and constricted. Appears to have a healing perforation of her right tympanic membrane) Neck exam: Present: normal inspection. Absent: tenderness, meningismus, lymphadenopathy Respiratory exam: Present: normal lung sounds bilaterally. Absent: respiratory distress, wheezes, rales, rhonchi, stridor Cardiovascular Exam: Present: regular rate, normal rhythm, normal heart sounds. Absent: systolic murmur, diastolic murmur, rubs, gallop, clicks GI/Abdominal exam: Present: soft, normal bowel sounds. Absent: distended, tenderness, guarding, rebound, rigid Extremities exam: Present: normal inspection, full ROM, normal capillary refill. Absent: tenderness, pedal edema, joint swelling, calf tenderness Back exam: Present: normal inspection Neurological exam: Present: alert, oriented X3, CN II-XII intact Psychiatric exam: Present: normal affect, normal mood Skin exam: Present: warm, dry, intact, normal color. Absent: rash Course Vital Signs 07/02/24 07/02/24 07/02/24 08:00 10:17 10:35 Temperature 98.5 F 98.6 F 98.8 F Pulse Rate 77 76 Respiratory 20 18 Rate Blood Pressure 116/78 122/76 O2 Sat by Pulse 98 97 Oximetry 07/02/24 12:38 Temperature 98.4 F Pulse Rate 63 Respiratory 18 Rate Blood Pressure 156/67 O2 Sat by Pulse 97 Oximetry Medical Decision Making - Medical Decision Making Was pt. sent in by a medical professional or institution (Dr. PA, GEARCASE ASSEMBLER, urgent care, hospital, or snf...) When possible be specific @ -No Did you speak to anyone other than the patient for history (EMS, parent, family, police, friend...)? What history was obtained from this source @ -No Did you review nursing and triage notes (agree or disagree)? Why? @ -I reviewed and agree with nursing and triage notes Were old charts reviewed (outside hosp., previous admission, EMS record, old EKG, old radiological studies, urgent care reports/EKG's, snf records)? Report findings @ -I reviewed the patient's chart from Saturday Differential Diagnosis (chest pain, altered mental status, abdominal pain women, abdominal pain men, vaginal bleeding, weakness, fever, dyspnea, syncope, headache, dizziness, GI bleed, back pain, seizure, CVA, palpatations, mental health, musculoskeletal)? @ -Differential Fever: Pneumonia, viral URI, endocarditis, myocarditis, pericarditis, otitis, sinusitis, peritonsillar Abscess, retropharyngeal Abscess, epiglottitis, peritonitis, appendicitis, Katina cystitis, diverticulitis, hepatitis, colitis, UTI, PID, TOA, pyelonephritis, prostatitis, epididymitis, meningitis, encephali tis, pulmonary embolism, CVA, thyroid storm, pancreatitis, adrenal crisis, cavernous sinus thrombosis, this is not meant to be an all-inclusive list. EKG interpreted by me (3pts min.). @ -Not done X-rays interpreted by me (1pt min.). @ -[Yes and demonstrates no acute process CT interpreted by me (1pt min.). @ -None done U/S interpreted by me (1pt. min.). @ -None done What testing was considered but not performed or refused? (CT, X-rays, U/S, labs)? Why? @ -CT abdomen considered however patient has no abdominal pain What meds were considered but not given or refused? Why? @ -None Did you discuss the management of the patient with other professionals (professionals i.e. , PA, GEARCASE ASSEMBLER, lab, RT, psych nurse, social media developer, hardware developer, teacher, chief sustainability officer, outsole caser)? Give summary @ -No Was smoking cessation discussed for >3mins.? @ -No Was critical care preformed (if so, how long)? @ -No Were there social determinants of health that impacted care today? How? (Homelessness, low income, unemployed, alcoholism, drug addiction, transportation, low edu. Level, literacy, decrease access to med. care, senior living, rehab)? @ -No Was there de-escalation of care discussed even if they declined (Discuss DNR or withdrawal of care, Hospice)? DNR status @ -No What co-morbidities impacted this encounter? (DM, HTN, Smoking, COPD, CAD, Cancer, CVA, ARF, Chemo, Hep., AIDS, mental health diagnosis, sleep apnea, morbid obesity)? @ -None Was patient admitted / discharged? Hospital course, mention meds given and route, prescriptions, significant lab abnormalities, going to [facility] and [facility]. @ -Upon arrival patient seen and evaluated in room 33. Thorough history and physical exam was performed. Patient given nausea medications and IV fluids. Laboratory studies are conducted again. Chest x-ray was performed. At this time the patient will be treated with steroids for her cough. She will be treated with antibiotics for her left otitis media. She also be prescribed naus ea medications. she be discharged home and instructed follow-up with her doctor and return for any new or worsening symptoms Undiagnosed new problem with uncertain prognosis? @ -No Drug Therapy requiring intensive monitoring for toxicity (Heparin, Nitro, Insulin, Cardizem)? @ -No Were any procedures done? @ -No Diagnosis/symptom? @ -Acute nausea, vomiting, diarrhea, acute bronchitis, acute otitis media Acute, or Chronic, or Acute on Chronic? @ -Acute Uncomplicated (without systemic symptoms) or Complicated (systemic symptoms)? @ -Complicated Side effects of treatment? @ -No Exacerbation, Progression, or Severe Exacerbation? @ -No Poses a threat to life or bodily function? How? (Chest pain, [place], [place], pneumonia, PE, COPD, DKA, ARF, appy, cholecystitis, CVA, Diverticulitis, Homicidal, Suicidal, threat to staff... and all critical care pts) @ -No - Lab Data Result diagrams: 07/02/24 09:05 07/02/24 09:05 Lab Results 07/02/24 07/02/24 07/02/24 Range/Units 09:05 09:05 09:05 WBC 6.0 (3.8-10.6) k/uL RBC 4.72 (3.80-5.40) m/uL Hgb 13.7 (11.4-16.0) gm/dL Hct 39.5 (34.0-46.0) % MCV 83.8 (80.0-100.0) fL MCH 29.1 (25.0-35.0) pg MCHC 34.7 (31.0-37.0) g/dL RDW 13.0 (11.5-15.5) % Plt Count 197 D (150-450) k/uL MPV 9.0 Neutrophils % 70 % Lymphocytes % 18 % Monocytes % 8 % Eosinophils % 2 % Basophils % 1 % Neutrophils # 4.2 (1.3-7.7) k/uL Lymphocytes # 1.1 (1.0-4.8) k/uL Monocytes # 0.5 (0-1.0) k/uL Eosinophils # 0.1 (0-0.7) k/uL Basophils # 0.0 (0-0.2) k/uL Sodium 136 L (137-145) mmol/L Potassium 4.2 (3.5-5.1) mmol/L Chloride 109 H (98-107) mmol/L Carbon Dioxide 23 (22-30) mmol/L Anion Gap 4 mmol/L BUN 11 (7-17) mg/dL Creatinine 0.63 (0.52-1.04) mg/dL Est GFR (CKD-EPI)AfAm >90 (>60 ml/min/1.73 sqM) Est GFR (CKD-EPI)NonAf >90 (>60 ml/min/1.73 sqM) Glucose 130 H (74-99) mg/dL Plasma Lactic Acid Andrew (0.7-2.0) mmol/L Calcium 9.9 (8.4-10.2) mg/dL Total Bilirubin 1.2 (0.2-1.3) mg/dL AST 60 H (14-36) U/L ALT 38 H (4-34) U/L Alkaline Phosphatase 73 (38-126) U/L Total Protein 7.8 (6.3-8.2) g/dL Albumin 4.6 (3.5-5.0) g/dL Lipase 79 (23-300) U/L Urine Color Urine Appearance (Clear) Urine pH (5.0-8.0) Ur Specific [place] (1.001-1.035) Urine Protein (Negative) Urine Glucose (UA) (Negative) Urine Ketones (Negative) Urine Blood (Negative) Urine Nitrite (Negative) Urine Bilirubin (Negative) Urine Urobilinogen (<2.0) mg/dL Ur Leukocyte Esterase (Negative) Urine RBC (0-5) /hpf Urine WBC (0-5) /hpf Ur Squamous Epith Cells (0-4) /hpf Calcium Oxalate Crystal (None) /hpf Urine Bacteria (None) /hpf Urine Mucus (None) /hpf Influenza Type A (PCR) Not Detected (Not Detectd) Influenza Type B (PCR) Not Detected (Not Detectd) RSV (PCR) Not Detected (Not Detectd) SARS-CoV-2 (PCR) Not Detected (Not Detectd) 07/02/24 07/02/24 Range/Units 09:05 09:12 WBC (3.8-10.6) k/uL RBC (3.80-5.40) m/uL Hgb (11.4-16.0) gm/dL Hct (34.0-46.0) % MCV (80.0-100.0) fL MCH (25.0-35.0) pg MCHC (31.0-37.0) g/dL RDW (11.5-15.5) % Plt Count (150-450) k/uL MPV Neutrophils % % Lymphocytes % % Monocytes % % Eosinophils % % Basophils % % Neutrophils # (1.3-7.7) k/uL Lymphocytes # (1.0-4.8) k/uL Monocytes # (0-1.0) k/uL Eosinophils # (0-0.7) k/uL Basophils # (0-0.2) k/uL Sodium (137-145) mmol/L Potassium (3.5-5.1) mmol/L Chloride (98-107) mmol/L Carbon Dioxide (22-30) mmol/L Anion Gap mmol/L BUN (7-17) mg/dL Creatinine (0.52-1.04) mg/dL Est GFR (CKD-EPI)AfAm (>60 ml/min/1.73 sqM) Est GFR (CKD-EPI)NonAf (>60 ml/min/1.73 sqM) Glucose (74-99) mg/dL Plasma Lactic Acid Andrew 1.8 (0.7-2.0) mmol/L Calcium (8.4-10.2) mg/dL Total Bilirubin (0.2-1.3) mg/dL AST (14-36) U/L ALT (4-34) U/L Alkaline Phosphatase (38-126) U/L Total Protein (6.3-8.2) g/dL Albumin (3.5-5.0) g/dL Lipase (23-300) U/L Urine Color Yellow Urine Appearance Cloudy H (Clear) Urine pH 6.5 (5.0-8.0) Ur Specific [place] 1.030 (1.001-1.035) Urine Protein Trace H (Negative) Urine Glucose (UA) Negative (Negative) Urine Ketones Negative (Negative) Urine Blood Negative (Negative) Urine Nitrite Negative (Negative) Urine Bilirubin Negative (Negative) Urine Urobilinogen 3.0 (<2.0) mg/dL Ur Leukocyte Esterase Negative (Negative) Urine RBC 1 (0-5) /hpf Urine WBC 3 (0-5) /hpf Ur Squamous Epith Cells 18 H (0-4) /hpf Calcium Oxalate Crystal Occasional H (None) /hpf Urine Bacteria Rare H (None) /hpf Urine Mucus Rare H (None) /hpf Influenza Type A (PCR) (Not Detectd) Influenza Type B (PCR) (Not Detectd) RSV (PCR) (Not Detectd) SARS-CoV-2 (PCR) (Not Detectd) Disposition Clinical Impression: Otitis media, Nausea & vomiting, Bronchitis Disposition: HOME SELF-CARE Condition: Stable Instructions (If sedation given, give patient instructions): Ear Infection (ED), Acute Bronchitis (ED) Additional Instructions: Take the medications as they are prescribed. Follow-up with your doctor for further evaluation return for any new or worsening symptoms Prescriptions: predniSONE [Deltasone] 20 mg PO BID #10 tab Azithromycin [Zithromax Z Pack] 1 tab PO DIRECTED #6 tab Ondansetron Odt [Zofran Odt] 4 mg PO Q8HR PRN #30 tab PRN Reason: Nausea Is patient prescribed a controlled substance at d/c from ED?: No Referrals: Maykel Hanson MD [Primary Care Provider] - 1-2 days Time of Disposition: 11:16
[2024-07-02] MEDS: methylPREDNISolone SOD SUCCI 125 MG/2 ML VIAL IV STA (11:50)
[2024-07-02] MEDS: cefTRIAXone IN SWFI 1,000 MG/10 ML SYRINGE IVP STA (11:50)
[2024-07-02] MEDS: diphenhydrAMINE 50 MG/ML 1 ML VIAL IVP STA (12:32)
[2024-07-02] MEDS: METOCLOPRAMIDE 5 MG/ML 2 ML VIAL IVP STA (12:32)
[2024-07-02 12:40] VITALS: BP 156/67; PULSE 63; TEMP 98.4
== END 2024-07-02 12:48 | disposition home or self-care (01) ==
LOC: EC 07:58
CPT/HCPCS: 36415; 71046; 80053; 81001; 83605; 83690; 85025; 87636; 96374; 96375; 99284

== ENCOUNTER 2024-08-21 05:52 | Day surgery (SDC) | payer OTHER ==
[2024-08-17 16:03] VITALS: BMI 36.3
--- NOTE | 2024-08-20 09:12 | P.HPOR ---
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 She is having pain with overhead use and at night. She's tried medications, and injection, and therapy without any relief. She notes da monico pain that limits her. Review of Systems Per HPI Past Medical History Past Medical History: Cancer, Diabetes Mellitus, Deep Vein Thrombosis (DVT), GERD/Reflux, Musculoskeletal Disorder, Rheumatoid Arthritis (RA), Thyroid Disorder Additional Past Medical History / Comment(s): hx colon cancer 2009, chemo c ompleted, BLOOD CLOT IN ABDOMEN AFTER BOWEL SURG, NEUROPATHY forrest legs/feet, restless leg, palpitations, elevated liver enzymes-dr. cesar. Chronic back pain, bulging disc, fx. History of Any Multi-Drug Resistant Organisms: None Reported Past Surgical History: Bladder Surgery, Bowel Resection, Hysterectomy, Tonsillectomy, Tubal Ligation Additional Past Surgical History / Comment(s): Cervical fusion C-5,6,7. Pain procedures, COLONOSCOPY Past Anesthesia/Blood Transfusion Reactions: Family History of Problems w/ Anesthesia, Motion Sickness Additional Past Anesthesia/Blood Transfusion Reaction / Comment(s): MOTHER HAS PONV Smoking Status: Never smoker - Past Family History Father Family Medical History: Cancer Medications and Allergies Home Medications Medication Instructions Recorded Confirmed Type Pramipexole [Mirapex] 2 mg PO HS 08/14/19 08/17/24 History traMADol HCl [Ultram] 50 mg PO Q6H PRN #20 tab 03/31/24 08/17/24 Rx Meloxicam [Mobic] 15 mg PO DAILY 08/17/24 08/17/24 History Pregabalin [Lyrica] 200 mg PO TID 08/17/24 08/17/24 History metFORMIN HCL [Glucophage XR] 750 mg PO HS 08/17/24 08/17/24 History Allergies Allergy/AdvReac Type Severity Reaction Status Date / Time Penicillins Allergy Severe Swelling Verified 08/17/24 15:51 Physical Examination - Shoulder right Appearance: effusion Tenderness with palpation: anterior, bicipital groove Pain: with abduction, with forward flexion ROM: forward flexion: 80 degrees (150 forward elevation passively) ROM: internal rotation: lower lumbar ROM: external rotation: 50 degrees Crepitus with motion: Yes Strength: abduction: 4/5 Strength: external rotation: 5/5 Tests: internal impingement tests: positive, external impingment tests: positive Results Patient is a well-developed well-nourished female approximately 5 foot 6, 225 pounds of endomorphic habitus. HEENT exam is nonfocal, neck supple. She's tender about the right shoulder anterior subacromial space. Moderate crepitus is noted. Hubbard, Neer sign are positive. Her distal neurovascular appears intact in the right upper extremity. - Diagnostic results Shoulder MRI: image reviewed (Right shoulder MRI shows evidence of synovitis along with glenohumeral joint arthritis. There is increased signal involving the rotator cuff insertion.) Assessment and Plan Assessment: Right shoulder impingement/rotator cuff tendinitis Right glenohumeral synovitis/arthritis Plan: I talked to the patient at length regarding her condition along with treatment options. At this point she's quite symptomatic having pain and limitation despite conservative measures. After a thorough discussion she opts to proceed with surgery. We will plan to proceed with right shoulder arthroscopic evaluation with probable debridement/synovectomy. We'll evaluate the integrity of the rotator cuff. We'll likely perform that as an outpatient procedure. Risks and benefits were discussed at length in layman's terms.
[2024-08-21 06:39] LABS: Glucose,Whole Blood 141 mg/dL (70-110)
[2024-08-21] MEDS: IV FLUID CONTINUATION 1,000 ML IV ONE (06:42)
[2024-08-21] MEDS: ONDANSETRON 4 MG/2 ML VIAL IVP ONE (06:44)
[2024-08-21] MEDS: SCOPOLAMINE 1 MG/72 HR PATCH TRANSDERM ONE (06:44)
[2024-08-21] MEDS: LACTATED RINGERS 1,000 ML IV SCH (06:44)
[2024-08-21] MEDS: DEXAMETHASONE SOD PHOSPHATE 4 MG/ML 1 ML VIAL IV ONE (06:44)
[2024-08-21] MEDS: fentaNYL (PF) 50 MCG/ML 2 ML AMP IVP STA (06:49)
[2024-08-21] MEDS: MIDAZOLAM 2 MG/2 ML VIAL IV PRN (06:49)
[2024-08-21] MEDS ORDERED: HYDROmorphone 0.5 MG/0.5 ML SYRINGE IVP PRN (07:00)
--- NOTE | 2024-08-21 07:27 | P.ANPRN ---
Procedure Note - Anesthesia - Nerve Block Performed Right Interscalene Single Time Out Performed: Yes Date of Procedure: 08/21/24 Procedure Start Time: 06:49 Procedure Stop Time: 06:57 Location of Patient: PreOp Indication: Acute Post-Operative Pain, Requested by Surgeon Sedation Type: Sedate with meaningful contact maintained Preparation: Sterile Prep Position: Supine Needle Types: Pajunk Needle Gauge: 21 Ultrasound used to visualize needle placement: Yes Ultrasound used to observe medication spread: Yes Injectate: 0.5% Ropivacaine (see comment for volume) (25 mL +4 mg dexamethasone) Blood Aspirated: No Pain Paresthesia on Injection Noted: No Resistance on Injection: Normal Image Stored and Saved: Yes Events: Uneventful and Well Tolerated
[2024-08-21] MEDS ORDERED: SUCCINYLCHOLINE CHLORIDE 200 MG/10 ML VIAL IV ONE (07:32)
[2024-08-21] MEDS ORDERED: ROPIVACAINE 5 MG/ML 30 ML VIAL ONE (07:32)
[2024-08-21] MEDS ORDERED: fentaNYL (PF) 50 MCG/ML 2 ML AMP ONE (07:32)
[2024-08-21] MEDS ORDERED: LIDOCAINE 1% INJ 10MG/ML (20 ML MDV) ONE (07:32)
[2024-08-21] MEDS ORDERED: PROPOFOL 10 MG/ML 20 ML VIAL IV ONE (07:32)
[2024-08-21] MEDS ORDERED: DEXAMETHASONE SOD PHOSPHATE 4 MG/ML 1 ML VIAL ONE (07:32)
[2024-08-21] MEDS ORDERED: MIDAZOLAM 2 MG/2 ML VIAL ONE (07:32)
[2024-08-21] MEDS: EPINEPHrine (PF) 1 ML in SODIUM CHLORIDE 0.9% IRRIGATIO 3,000 ML IRRIGATION ONE ×4 (07:35)
[2024-08-21 09:02] VITALS: TEMP 98.2
--- NOTE | 2024-08-21 09:03 | P.OP ---
Date of Procedure: 08/21/24 Preoperative Diagnosis: Right glenohumeral joint synovitis/partial-thickness rotator cuff tear Postoperative Diagnosis: Same in addition to high-grade partial-thickness tear supraspinatus Procedure(s) Performed: Right shoulder arthroscopic synovectomy/rotator cuff repair/subacromial decompression Implants: Arthrex 4.75 mm swivel lock anchor x 1, 5.5 mm swivel lock anchor x 1 Anesthesia: CHERRY, regional Surgeon: Ulises Tena Information Broker #1: Hawk Jackson Estimated Blood Loss (ml): 10 Pathology: none sent Condition: stable Disposition: PACU Indications for Procedure: The patient is a 59-year-old female who presents with progressive right shoulder pain despite conservative measures. A discussion of the risks and benefits of operative intervention versus continued conservative measures was made with the patient. She opted to proceed with surgery. Operative risks include infection, neurovascular injury, development of blood clots, possible tendon rerupture, possible postoperative stiffness, and possible need for subsequent procedures was discussed. Informed consent was obtained. Operative Findings: As below Description of Procedure: The patient was brought to the operating room, and after induction of general anesthesia was placed in a beachchair position. A preoperative interscalene block was placed for postoperative analgesia. I examined the right shoulder. There was no gross block to passive motion or gross glenohumeral instability. The right upper extremity was prepped and draped in normal fashion. The bony outlines the acromion, distal clavicle, and coracoid process were outlined with a skin marker. The glenohumeral joint was inflated with 50 mL of saline utilizing a spinal needle from posterior approach. A posterior portal was made through a 5 mm skin incision 1 cm medial and inferior to the posterior lateral border time. A blunt trocar was used to easily into the joint. Diagnostic arthroscopy was performed. An anterior portal was made just lateral to the coracoid process entering the joint above the subscapularis tendon. The subscapularis tendon appeared to be intact. Anterior labrum was intact. The inferior recess was inspected. The posterior labrum was intact. Marked synovitis involving the glenohumeral joint/rotator interval was noted. This was debrided with a motorized shaver. On inspection the rotator cuff, a high-grade partial-thickness tear involving the supraspinatus was noted. The arthroscope was placed into the subacromial space. A lateral portal was made 2 centimeters inferior to the anterior lateral border of the acromion. The rotator cuff was inspected and a high-grade partial-thickness tear involving the supraspinatus was noted. The tear was completed with a motorized shaver and tissue was easily mobilized. This measured approximately 1 cm. The soft tissue on the undersurface of the acromion was debrided with a motorized shaver and electrocautery clearly defining the anterior medial and lateral borders as well as the distal clavicle. An anterior inferior acromioplasty was performed with a motorized jake starting anterolateral, then extending this posteriorly, then extending this medially. I converted to a flat acromion and this was verified in the posterior and lateral viewing portals. The greater tuberosity was lightly decorticating with a shaver down to a bleeding bony surface. An accessory superior lateral portal was made just off the lateral edge of the acromion for anchor placement. A 4.75 millimeter swivel lock anchor preloaded with fiber tape was placed just off the articular surface. Good purchase was obtained. The fiber tapes were then passed the rotator cuff with a scorpion suture passer. A fiber link tape was placed anteriorly for additional fixation. A lateral row was created utilizing these tapes. A 5.5 mm swivel lock anchor was placed laterally with good purchase. The sutures were appropriately tensioned. Final arthroscopic view showed adequate compression at the footprint. The arthroscope was then removed. The portals were closed with simple 3-0 nylon sutures. A sterile dressing was applied in addition to an abductor brace. The patient was then awoken from general anesthesia and transferred to recovery room in good condition. Blood loss was estimated at 10 mL. No complications were incurred. Sponge and needle counts were correct in the case. Hawk HERNANDEZ assisted and the major components of the case to include arm positioning, anchor placement, and rotator cuff repair.
[2024-08-21 11:44] VITALS: BP 128/68; PULSE 80; RESP 16
== END 2024-08-21 11:32 | disposition home or self-care (01) ==
LOC: OR 05:52
PROVIDERS: ATTEND Orthopaedic Surgery
CPT/HCPCS: 64415

== ENCOUNTER 2024-08-28 11:12 | Emergency (ER) | payer OTHER ==
--- NOTE | 2024-08-28 11:30 | ED ---
Upper Extremity HPI - General Chief Complaint: Extremity Injury, Upper Stated Complaint: Post Surgery-R Shoulder injury Time Seen by Provider: 08/28/24 11:30 Source: patient, RN notes reviewed Mode of arrival: EMS - History of Present Illness Initial Comments: 59-year-old female presents emergency department via EMS for chief complaint of right shoulder pain. Patient states that earlier today she was in the refrigerator reaching for a ball when she pulled her right arm. States that she has been having severe pain in the right arm since. Patient had a scope and debridement completed of the right shoulder last week with Dr. Doe. She denies paresthesias of the arm and still has a sling in place. She denies falling at the time of the injury. No other acute complaints this time. - Related Data Home Medications Medication Instructions Recorded Confirmed Pramipexole [Mirapex] 2 mg PO HS 08/14/19 08/21/24 Meloxicam [Mobic] 15 mg PO DAILY 08/17/24 08/17/24 Pregabalin [Lyrica] 200 mg PO TID 08/17/24 08/21/24 metFORMIN HCL [Glucophage XR] 750 mg PO HS 08/17/24 08/21/24 Previous Rx's Medication Instructions Recorded traMADol HCl [Ultram] 50 mg PO Q6H PRN #20 tab 03/31/24 HYDROcodone/APAP 7.5-325MG [Hammond 1 tab PO Q6HR PRN #28 tab 08/21/24 7.5-325] Allergies Allergy/AdvReac Type Severity Reaction Status Date / Time Penicillins Allergy Severe Swelling Verified 08/28/24 11:18 Review of Systems ROS Statement: Those systems with pertinent positive or pertinent negative responses have been documented in the HPI. ROS Other: All systems not noted in ROS Statement are negative. Past Medical History Past Medical History: Cancer, Diabetes Mellitus, Deep Vein Thrombosis (DVT), GERD/Reflux, Musculoskeletal Disorder, Rheumatoid Arthritis (RA), Thyroid Disorder Additional Past Medical History / Comment(s): hx colon cancer 2009, chemo completed, BLOOD CLOT IN ABDOMEN AFTER BOWEL SURG, NEUROPATHY forrest legs/feet, restless leg, palpitations, elevated liver enzymes-dr. cesar. Chronic back pain, bulging disc, fx. History of Any Multi-Drug Resistant Organisms: None Reported Past Surgical History: Bladder Surgery, Bowel Resection, Hysterectomy, Orthopedic Surgery, Tonsillectomy, Tubal Ligation Additional Past Surgical History / Comment(s): Cervical fusion C-5,6,7. Pain procedures, COLONOSCOPY, R shoulder surgery Past Anesthesia/Blood Transfusion Reactions: Family History of Problems w/ Anesthesia, Motion Sickness Additional Past Anesthesia/Blood Transfusion Reaction / Comment(s): MOTHER HAS PONV Past Psychological History: Depression Smoking Status: Never smoker Past Alcohol Use History: Occasional Past Drug Use History: Marijuana - Past Family History Father Family Medical History: Cancer General Exam General appearance: alert, in no apparent distress Eye exam: Present: normal appearance, PERRL, EOMI. Absent: scleral icterus, conjunctival injection, periorbital swelling ENT exam: Present: normal exam, mucous membranes moist Neck exam: Present: normal inspection. Absent: tenderness, meningismus, lymphadenopathy Respiratory exam: Present: normal lung sounds bilaterally. Absent: respiratory distress, wheezes, rales, rhonchi, stridor Cardiovascular Exam: Present: regular rate, normal rhythm, normal heart sounds. Absent: systolic murmur, diastolic murmur, rubs, gallop, clicks GI/Abdominal exam: Present: soft, normal bowel sounds. Absent: distended, tenderness, guarding, rebound, rigid Extremities exam: Present: normal inspection, tenderness (right shoulder), normal capillary refill. Absent: full ROM (right shoulder), pedal edema, joint swelling, calf tenderness Back exam: Present: normal inspection Neurological exam: Present: alert, oriented X3, CN II-XII intact Psychiatric exam: Present: depressed Course Vital Signs 08/28/24 08/28/24 08/28/24 11:15 14:43 15:59 Temperature 97.8 F Pulse Rate 88 78 75 Respiratory 18 20 18 Rate Blood Pressure 138/74 93/61 108/70 O2 Sat by Pulse 98 98 Oximetry Medical Decision Making - Medical Decision Making Was pt. sent in by a medical professional or institution (, PA, SENIOR DIRECTOR, urgent care, hospital, or long term...) When possible be specific @ -No Did you speak to anyone other than the patient for history (EMS, parent, family, police, friend...)? What history was obtained from this source @ -No Did you review nursing and triage notes (agree or disagree)? Why? @ -I reviewed and agree with nursing and triage notes Were old charts reviewed (outside hosp., previous admission, EMS record, old EKG, old radiological studies, urgent care reports/EKG's, long term records)? Report findings @ -08/21/2024 patient have progressive right shoulder pain despite conservative measures. She underwent diagnostic arthroscopy and debridement Differential Diagnosis (chest pain, altered mental status, abdominal pain women, abdominal pain men, vaginal bleeding, weakness, fever, dyspnea, syncope, headache, dizziness, GI bleed, back pain, seizure, CVA, palpatations, mental health, musculoskeletal)? @ -Differential Musculoskeletal Muscular strain, contusion, ligament sprain, fracture, arthritis, septic arthritis, bursitis, cellulitis, muscle spasm, nerve compression, DVT, arterial occlusion, herpes zoster, electrolyte abnormality, tumor.... This is not meant to be in all inclusive list EKG interpreted by me (3pts min.). @ -None X-rays interpreted by me (1pt min.). @ -X-ray of the right shoulder unremarkable for acute fracture or dislocation xray cervical spine reveals no acute fracture or dislocation X-ray of the thoracic spine reveals no acute fracture dislocation CT interpreted by me (1pt min.). @ -None done U/S interpreted by me (1pt. min.). @ -None done What testing was considered but not performed or refused? (CT, X-rays, U/S, labs)? Why? @ -None What meds were considered but not given or refused? Why? @ -None Did you discuss the management of the patient with other professionals (professionals i.e. , PA, SENIOR DIRECTOR, lab, RT, psych nurse, older adult social work specialist, electronic assembly, teacher, medical information officer, family caseworker)? Give summary @ -No Was smoking cessation discussed for >3mins.? @ -No Was critical care preformed (if so, how long)? @ -No Were there social determinants of health that impacted care today? How? (Homelessness, low income, unemployed, alcoholism, drug addiction, transportation, low edu. Level, literacy, decrease access to med. care, detention, rehab)? @ -No Was there de-escalation of care discussed even if they declined (Discuss DNR or withdrawal of care, Hospice)? DNR status @ -No What co-morbidities impacted this encounter? (DM, HTN, Smoking, COPD, CAD, Cancer, CVA, ARF, Chemo, Hep., AIDS, mental health diagnosis, sleep apnea, morbid obesity)? @ -None Was patient admitted / discharged? Hospital course, mention meds given and route, prescriptions, significant lab abnormalities, going to OR and other pertinent info. @ -Discharge. 59-year-old female with right shoulder pain. Patient presents via EMS and is quite tearful on initial evaluations. States that she is having severe pain of her right shoulder and is concerned that she may have reinjured the shoulder after procedure that was completed last week. Patient is neuro vastly intact of the right arm. Has full range of motion of the wrist and has good capillary refill. Radial pulse 2+. Sensation intact along the right arm. X-ray of the right shoulder unremarkable for acute fracture or dislocation. I discussed with the patient of results she states that she feels okay for discharge. Was informed by nursing staff that patient was complaining of difficulty with ambulation and stating that "she cannot walk "and was persistent that she is unable to move her legs. Neurological examination completed with no acute deficits. Patient has muscular strength of bilateral lower extremities and neurovascularly intact. Patient is quite tearful at bedside and patient's mother is again angry as well stated that patient is unable to ambulate. The patient's reports emergency department from magneto specialist office and it was advised that patient undergo x-ray of the neck and back for further evaluation. X-rays of both cervical spine and thoracic spine are unremarkable. Patient was again reinformed of x-ray findings and she states that she is starting to feel much better since her initial arrival to emergency department and is able to move her legs again and patient was able to ambulate with no acute difficulties. Recommend that patient follows up as scheduled with magneto specialist and keep sling in place until further evaluation. Discussed with my attending Dr. Cedillo Undiagnosed new problem with uncertain prognosis? @ -No Drug Therapy requiring intensive monitoring for toxicity (Heparin, Nitro, Insulin, Cardizem)? @ -No Were any procedures done? @ -No Diagnosis/symptom? @ -Right shoulder pain Acute, or Chronic, or Acute on Chronic? @ -Acute Uncomplicated (without systemic symptoms) or Complicated (systemic symptoms)? @ -Uncomplicated Side effects of treatment? @ -No Exacerbation, Progression, or Severe Exacerbation? @ -No Poses a threat to life or bodily function? How? (Chest pain, USA, MT, pneumonia, PE, COPD, DKA, ARF, appy, cholecystitis, CVA, Diverticulitis, Homicidal, Suicidal, threat to staff... and all critical care pts) @ -No Disposition Clinical Impression: Right shoulder pain Disposition: HOME SELF-CARE Condition: Good Instructions (If sedation given, give patient instructions): Shoulder Sprain (ED) Additional Instructions: Please return to the Emergency Department if symptoms worsen or any other concerns. Is patient prescribed a controlled substance at d/c from ED?: No Referrals: Jordyn Rivera NPC [REFERRING] - 1-2 days Time of Disposition: 13:15
[2024-08-28] MEDS: HYDROmorphone 1 MG/ML 1 ML SYRINGE IM STA ×2 (11:52→13:37)
[2024-08-28] MEDS: ONDANSETRON ODT 4 MG TAB PO STA (11:52)
--- NOTE | 2024-08-28 13:01 | XR ---
EXAMINATION TYPE: XR shoulder complete RT DATE OF EXAM: 08/28/2024 CLINICAL HISTORY: pain TECHNIQUE: Three views of the right shoulder are obtained. COMPARISON: None FINDINGS: There is no acute fracture/dislocation evident. The acromioclavicular and glenohumeral chip int spaces appear within normal limits. The visualized ribs are intact and unremarkable. IMPRESSION: 1. There is no acute fracture or dislocation. ICD 10 NO FRACTURE, INITIAL EVALUATION [facility], , 08/28/2024 12:59 PM
[2024-08-28 14:46] VITALS: TEMP 97.8
--- NOTE | 2024-08-28 15:30 | XR ---
EXAMINATION TYPE: XR thoracic spine 2V DATE OF EXAM: 08/28/2024 CLINICAL HISTORY: pain TECHNIQUE: Frontal, lateral, and swimmer's view of thoracic spine are obtained. COMPARISON: None. FINDINGS: Thoracic spine show satisfactory alignment without evidence of acute fracture or dislocatio n. Vertebral body heights are preserved. Disc spaces are well preserved. Visualized ribs are unrem arkable. IMPRESSION: No acute fracture or dislocation is seen in the thoracic spine. ICD 10 NO FRACTURE, INIT IAL EVALUATION [facility], , 08/28/2024 3:28 PM
--- NOTE | 2024-08-28 15:30 | XR ---
EXAMINATION TYPE: XR cervical spine comp DATE OF EXAM: 08/28/2024 CLINICAL HISTORY: pain COMPARISON: NONE TECHNIQUE: Frontal, lateral, oblique, swimmers, and open mouth view of the cervical spine are obtaine d. FINDINGS: The cervical spine is visualized in its entirety from C1 thru the top of T1 level. It is s atisfactory in alignment without evidence of acute fracture or dislocation. The pre-vertebral soft t issue appears within normal limits. Postoperative changes of ACDF at C5-6 and C6-7 with normal appear ing postoperative alignment. Moderate degenerative disc space narrowing at C4-5 with ventral spondylo sis. The C1-C2 articulation is unremarkable on the open mouth view. The oblique images are within no rmal limits. IMPRESSION: No acute fracture or dislocation is seen in the cervical spine.ICD 10 NO FRACTURE, INITI AL EVALUATION [facility], , 08/28/2024 3:28 PM
[2024-08-28 16:01] VITALS: BP 108/70; PULSE 75; RESP 18
== END 2024-08-28 16:01 | disposition home or self-care (01) ==
LOC: EC 11:12
CPT/HCPCS: 72050; 72070; 96372; 99283

== ENCOUNTER → 2024-11-25 | Outpatient (CLI) | payer OTHER ==
--- NOTE | 2024-11-25 11:50 | CT ---
EXAMINATION TYPE: CT abdomen pelvis w con DATE OF EXAM: 11/25/2024 HISTORY: LUQ abdominal pain. Diarrhea x3wks. Hx of malignant neoplasm of large intestine. CT DLP: 1848.9mGycm Automated Exposure Control for Dose Reduction was Utilized. CONTRAST: CT scan of the abdomen and pelvis is performed with oral and with IV Contrast, patient injected with 100 ml mL of Isovue 300. COMPARISON: Prior CT April 03, 2022 and older studies. FINDINGS: LUNG BASES: No significant abnormality is appreciated. LIVER/GB: Liver redemonstrated heterogeneously hypodense consistent with mild diffuse fatty infiltrat marco hepatocellular disease. No new biliary dilatation. PANCREAS: No significant abnormality is seen. SPLEEN: Splenomegaly at 14.6 cm long axis axial image 23 is redemonstrated. ADRENALS: No significant abnormality is seen. KIDNEYS: Stable Subcentimeter low-density round lesion right kidney series 5 image 39 redemonstrated presumed benign. BOWEL: Surgical changes from right-sided partial colectomy and small bowel anastomosis redemonstrated .. Contrast does not reach colonic level making evaluation of distal bowel slightly suboptimal. No carlos spicious small or large bowel dilatation. UTERUS/ADNEXA: Uterus surgically absent. Scattered bilateral tiny pelvic phleboliths redemonstrated. LYMPH NODES: No greater than 1cm abdominal or pelvic lymph nodes are appreciated. OSSEOUS STRUCTURES: No significant abnormality is seen. OTHER: No significant additional abnormality is seen. IMPRESSION: Postsurgical changes to the proximal colon redemonstrated. No definitive new mass or stacy opathy to suggest active neoplastic recurrence. [facility], , 11/25/2024 11:48 AM
== END | disposition home or self-care (01) ==
LOC: RADCTMAIN 09:28
PROVIDERS: ATTEND Family Medicine
DX: R19.7 Diarrhea, unspecified (principal); Z85.038 Personal history of other malignant neoplasm of large intestine; Z98.890 Other specified postprocedural states
CPT/HCPCS: 74177; Q9967